=== PATIENT | male | born 1950 | race Hispanic/Latino ===

== ENCOUNTER 2016-11-12 07:27 | Inpatient (IN) | payer SELFPAY ==
[~2016-11-12] VITALS: Ht 167.6 cm; Wt 103.8 kg
[2016-11-12] VITALS (29 sets, daily range): BP systolic 69–127; BP diastolic 29–70; PULSE 89–117; RESP 14–35; O2SAT 97–100
[~2016-11-12 07:27] MED LIST: Rocuronium 10 mg/mL 5 mL Inj ONE
[2016-11-12] MEDS ORDERED: 0.9% Sodium Chloride 1,000 ML IV ONE ×2 (07:47→07:50)
--- NOTE | 2016-11-12 07:47 | ED.REPORT ---
HPI-General Illness Date of Service Nov 12, 2016 ED Provider: Ousmane Lan MD Pt is a 65 y.o. male with a hx of stroke, anemia, and HLD who presents to the ED accompanied by his family with hematemesis onset this morning. Family reports associated dark/maroon diarrhea, SOB, nausea, and decreased PO intake. They deny fever. Son states that pt was refusing to eat approximately 4 days ago. They state that pt does not take blood thinners. Due to prior stroke pt is aphasic and has chronic right-sided deficits. Pt is unable to provide a hx and past medical hx is limited due to the fact that pt has received a majority of his healthcare in [place]. Nursing Notes Stated Complaint: SHORT OF BREATH Chief Complaint: Male Abdominal Pain Nursing Notes Reviewed: Yes Allergies: Coded Allergies: No Known Allergies (Unverified , 11/12/16) No Active Prescriptions or Reported Meds General Time Seen by MD: 07:40 Chief Complaint Vomiting (Hematemesis) Hx Obtained From: Spouse, Son, Daughter Unable to Obtain Hx: Patient condition, Mental status Arrived By: Walk-in Sudden in Onset?: Yes Onset Occurred: 3 days ago Past Medical History Past Medical History Anemia HLD Chronic aphasia and right-sided weakness secondary to stroke Reports: Hyperlipidemia, Stroke Past Surgical History None reported Social History Other Social History: Good social support, Review of Systems Decreased PO intake Unable to Obtain ROS Patient condition, Mental status Full Review of Systems Constitutional: Denies: Fever GI: Reports: Bloody/tarry stool, Diarrhea, Hematemesis, Nausea, Vomiting Complete sys rev & neg: except as marked. Physical Exam Vital Signs Vital Signs Date Time Temp Pulse Resp B/P Pulse Ox O2 Delivery O2 Flow Rate FiO2 11/12/16 13:03 94 22 111/65 100 Mechanical Ventilator 11/12/16 12:55 35.6 11/12/16 12:55 93 21 113/63 100 Room Air 11/12/16 12:42 100 11/12/16 12:32 95 26 101/63 100 11/12/16 12:07 35.7 95 34 99/56 11/12/16 11:49 35.8 96 32 108/43 Non-Rebreather 15 11/12/16 11:15 99 25 11/12/16 10:37 97 35 83/45 Simple Mask 11/12/16 10:23 35.7 11/12/16 10:05 35.6 98 29 99/53 11/12/16 09:53 35.7 95 32 88/57 Simple Mask 11/12/16 09:30 35.8 101 30 81/49 Simple Mask 11/12/16 09:10 35.8 103 30 11/12/16 08:03 103 29 102/57 Non-Rebreather 11/12/16 07:39 36 117 22 80/53 Initial VS: Reviewed General/Constitutional: Awake, Well appearing, Well developed, Well hydrated, Well nourished, Not toxic appearing Behavior: Positive: Anxious Appearance / Presentation: Positive: Pale Exam is limited due to pt being aphasic secondary to stroke. Pt appears anxious, reports this it typical of pt when multiple people are present. Head / Eyes: Atraumatic, Normocephalic Respiratory / Chest: Atraumatic, Breath sounds NL, Breath sounds = bilat, No respiratory distress Cardiovascular: Regular rhythm Heart Rate / Rhythm: Positive: Tachycardia Lower Ext Edema: Positive: Right 3+ (Chronic per ) Upper extremity edema, chronic per Abdomen: Atraumatic, Soft, Non-tender, No distention Rectum / Perineum: Atraumatic Rectal for Blood: Positive: Blood - occult heme +, Negative: Melena present Firm dark stool Speech: Positive: Expressive aphasia (Chronic) Focal Weakness: Positive: Weakness diffuse R (Chronic) Interpretation & Diagnostics Lab Results Interpretation Result Diagram: 11/12/16 0755 11/12/16 0823 Test 11/12/16 07:55 11/12/16 08:23 11/12/16 08:51 White Blood Count 18.8th/mm3 (3.8-10.1) Red Blood Count 3.00mil/mm3 (4.40-5.80) Mean Corpuscular Volume 62.0fL (81-100) Mean Corpuscular Hemoglobin 15.3pg (27.0-35.0) Mean Corpuscular Hemoglobin Concent 24.7% (32.0-37.0) Red Cell Distribution Width 22.1% (12.3-15.4) Platelet Count 185bil/L (150-400) Neutrophils (%) (Auto) 88% (40-74) Lymphocytes (%) (Auto) 10% (14-46) Monocytes (%) (Auto) 2% (4-12) Eosinophils (%) (Auto) 0% (0-5) Basophils (%) (Auto) 0% (0-3) Nucleated Red Blood Cells 4/100 WBC (0-24) Hematology Comments Rbc Prothrombin Time 14.2sec (8.1-12.5) Prothromb Time International Ratio 1.32ratio Sodium Level 137mEq/L (134-144) Potassium Level 5.8mEq/L (3.5-5.2) Chloride Level 97mEq/L (97-108) Carbon Dioxide Level 6mmol/L (18-29) Blood Urea Nitrogen 32mg/dL (8-27) Creatinine 1.88mg/dL (0.76-1.27) Estimat Glomerular Filtration Rate 38mL/min (>59) Glucose Level 187mg/dL (60-99) Lactic Acid Level 20.8mmol/L (0.4-2.0) Calcium Level 8.5mg/dL (8.5-10.1) Total Bilirubin 0.5mg/dL (0.0-1.2) Aspartate Amino Transf (AST/SGOT) 80U/L (0-50) Alanine Aminotransferase (ALT/SGPT) 50U/L (0-44) Alkaline Phosphatase 72U/L (25-160) Total Protein 6.8g/dL (6.4-8.4) Albumin 3.3g/dL (3.4-5.0) Hold Zapien Top Tube Received (Received) Urine Color Yellow (YELLOW) Urine Appearance Hazy (CLEAR,HAZY) Urine pH 5.0 (5.0-8.0) Urine Specific [place] 1.021 (1.003-1.035) Urine Protein Tracemg/dL (NEG,TRACE) Urine Glucose (UA) Negativemg/dL (NEGATIVE) Urine Ketones Negativemg/dL (NEGATIVE) Urine Occult Blood Negative (NEGATIVE) Urine Nitrite Negative (NEGATIVE) Urine Bilirubin Negative (NEGATIVE) Urine Urobilinogen Normalmg/dL (NORMAL) Urine Leukocyte Esterase Trace (NEGATIVE) Urine RBC 0-2/hpf (0-2) Urine WBC 6-10/hpf (0-5) Urine Epithelial Cells Many/hpf (NONE-MOD) Urine Crystals Amorphous urates (NONE Urine Bacteria None/hpf (NONE-FEW) Urine Hyaline Casts None/lpf (NONE) Urine Granular Casts None seen (NONE SEEN) Urine Waxy Casts None seen (NONE SEEN) Urine Red Blood Cell Casts None seen (NONE SEEN) Urine White Blood Cell Casts None seen (NONE SEEN) Urine Mucus None seen (None Seen) Urine Trichomonas None seen (NONE SEEN) Urine Yeast None (NONE SEEN) Urinalysis Comment None Urine Culture Reflexed Indicated Point of Care Testing: Guaiac - heme positive, Hemoglobin low, Hematocrit low, Troponin elevated General Lab Results Interp 1: Labs reviewed ECG Interpretation Time: 07:38 Interpreted by: ED physician Normal ECG Interpretation: Normal sinus rhythm Rhythm / Conduction: Tachycardia (rate of 106) Time: 11:54 Interpreted by: ED physician Normal ECG Interpretation: Normal rate (96), Normal sinus rhythm Procedures Intubation Time: 12:13 Procedure Performed by: ED physician Consent / Setup / Site Prep: Informed consent provided, Consent from spouse , Time-out performed, Pulse oximeter applied, ekg monitor tech applied, Hand hygiene observed, Stand sterile technique Patient Position: Sniff position Blade / ET Tube / Route: Amity scope Procedural Sedation/Analgesia: Sedation: Etomidate (20) Neuromuscular Agent: Rocuronium (8) Secured / Marked: Tube marked at ___ cm (25), Tube marked at teeth Complications: None Post-Procedure: Condition improved, Tolerated procedure well, Patient stable Proced Mod Sedation/Analgesia Time: 12:13 Procedure Performed by: ED physician Consent / Setup: Informed consent provided, Consent from spouse, Time-out performed, Hand hygiene observed, Stand sterile technique, Position supine Indication: Other (Intubation) Preparation: ekg monitor tech applied, Pulse oximeter applied, Constant attendance, IV access established, Eval last meal time, Supplemental oxygen, Procedure explained, Suction available, End tidal CO2 mon applied VS Prior to Procedure: Heart Rate normal Mallampati: Class & Anatomy: 1 tonsils/uvula/s palate Airway Exam: Normal facial anatomy CVS/Resp Exam: Normal breath sounds Neuro Exam: Alert, Responsive Sedation: Sedation: Etomidate (20) Response During Procedure: Handled secretions adeq, Maintained airway well, Oxygenation stable, Sedation appropriate Complications During/After: None Reversal: None required Mental Status After Procedure: At patient's baseline Post-Procedure: Pt rtn pre-proc baseline Attestation: I performed procedure, I performed sedation Re-Eval/Medical Decision Med Decision/Clinical Course At one point anesthesia expressed a concern that the blood pressure was not being adequately managed. The blood pressures had been in the low 90s to upper 80s systolic for some time with a map of 65. Blood pressures have not been monitored for the preceding 30 minutes because of PICC line had been placed in the monitored arm. Blood pressure had been checked on the flaccid poststroke arm but values in that arm were nonsensical. I did not feel that in fact blood pressures had been inadequate. Source of Hx: Old records Time of Eval: 08:34 Re-Evaluation/Progress Note: Pt rechecked. Discussed need for admit and transfusion with family, they understand and agree with plan. Bp: 72/25 Time of Eval: 10:24 Evaluation: Lungs clear Re-Evaluation/Progress Note: Pt rechecked. Pt remains tachypneic. Imaging reviewed and chest x-ray appears normal. Rectal temp: 35C Will apply warming blanket Time of Eval: 12:09 Re-Evaluation/Progress Note: Discussed need to intubate with family, the understand and agree with plan. Consultation #1: Referral / Consult Name: Kunal Luna MD Call Returned at: 08:37 Quality Improvement Coordinator: Will see patient Note: Discussed pt condition with Dr. Kunal Luna (GI), he will see pt. Consultation #2: Referral / Consult Name: Will Gabriel MD Consulted With: Hospitalist Call Returned at: 09:07 Quality Improvement Coordinator: Will see patient, Agrees with eval, Agrees with plan, Accepts admit Note: Discussed pt conditionand consult with Dr. Luna, accepts admit. Consultation #3: Referral / Consult Name: Kunal Luna MD Call Returned at: 10:53 Note: Discussed pt's low core temp and current transfusion. Counseled Regarding: Diagnosis, Lab results, Need for admission Discharge & Departure Primary Impression: Upper GI bleed Additional Impressions: Metabolic acidosis Severe sepsis Severe anemia Disposition: ADMITTED TO HOSPITAL Discharge Condition All VS Reviewed: Yes Condition: Stable Crit Care Except Billable Proc Time Spent: 30-74 minutes, 75-104 minutes, 105-134 minutes Services Performed: Patient management by me, Time spent at bedside, Reviewing test results, Discussing patient care, Documentation in record, Time with fam/ surrogate Scribe Attestation Portions of this note were transcribed by Dr. Edyta Newberry personally performed the history, physical exam and medical decision-making; I reviewed and confirmed the accuracy of the information in the transcribed note. Signed by: Pasha England, 11/12/16 and [id number] Mathews MD Nov 12, 2016 07:47 MAURISIO SAINZ Nov 12, 2016 08:11
[2016-11-12] MEDS ORDERED: Pantoprazole 4 mg/mL 10 mL Inj IVPUSH ONE (07:50)
[2016-11-12 08:07] LABS: Mean Corpuscular Hemoglobin 15.3 pg (27.0-35.0); Platelet Count 185 bil/L (150-400)
[2016-11-12] MEDS: Pantoprazole 8 mg/Hr Infusion IV SCH ×4 (08:45→19:07)
[2016-11-12 08:54] LABS: INR 1.32 ratio
[2016-11-12 08:58] LABS: BASOPHILS % (AUTO) 0 % (0-3); EOSINOPHILS % (AUTO) 0 % (0-5); MONOCYTES % (AUTO) 2 % (4-12); NEUTROPHILS % (AUTO) 88 % (40-74)
[2016-11-12] MEDS ORDERED: Ondansetron 2 mg/mL 2 mL Inj IVPUSH PRN (09:10)
[2016-11-12] MEDS ORDERED: Alum-Mag Hydrox-Simeth 30 mL Suspension PO PRN (09:10)
[2016-11-12] MEDS ORDERED: Polyethylene Glycol (PEG) 17 Gm Powder PO PRN (09:10)
[2016-11-12] MEDS ORDERED: 0.9% Sodium Chloride 1,000 ML IV SCH (09:10)
[2016-11-12 09:17] LABS: TROPONIN T 0.14 ug/L (0.0-0.011)
[2016-11-12 09:28] LABS: APPEARANCE,URINE HAZY (CLEAR,HAZY); COLOR,URINE YELLOW (YELLOW); OCCULT BLOOD,URINE NEGATIVE (NEGATIVE); UROBILINOGEN,URINE NORMAL (NORMAL)
--- NOTE | 2016-11-12 11:14 | DRSVH ---
PROCEDURE: X-RAY CHEST ONE VIEW, PORTABLE ([id number]) INDICATIONS: tachypnea TECHNIQUE: One view of the chest was acquired. COMPARISON: None. FINDINGS: Surgical changes and devices: None. Lungs and pleura: No pleural effusions or pneumothorax. Evaluation limited due to patient rotation. There are a few linear medial left retrocardiac opacities likely representing atelectasis. Mediastinum: Mediastinal contours appear prominent likely due to rotation. Heart size is normal. Bones and chest wall: No suspicious bony lesions. Overlying soft tissues appear unremarkable. IMPRESSION: 1. Linear left retrocardiac opacities likely represent atelectasis. Dictated by: Raudel Chester M.D. on 11/12/2016 at 11:06 Approved by: Raudel Chester M.D. on 11/12/2016 at 11:07
--- NOTE | 2016-11-12 11:27 | ABG ---
DateTimeAnalyzed 11:24:00 -_ pH ____6.908 - pCO2 ___44.0__ -mmHg pO2 ___24.9__ -mmHg HCO3- ____8.3__ -mmol/L ABE __-22.2__ -mmol/L tHb ____6.4__ -g/dL O2Hb ___24.0__ -% COHb ____1.2__ -% MetHb ____1.2__ -% sO2 ___24.6__ -% FIO2 ___21.0__ -% Drawn By LAB - Date/Time Notified____ 11:26:00 -_ Spontaneous_RR ___36.0__ -b/min Liter_Flow ____7.0__ -L/min Oxygen Device 1 __OXYMASK - Notified By JJ - Notified Whom DR JERAMIE - B 760 -mmHg tO2 ____2.2__ -Vol% Herve test N/A -
[2016-11-12] MEDS ORDERED: Succinylcholine Chloride 20 mg/mL 5 mL Inj IVPUSH ONE (12:10)
[2016-11-12] MEDS ORDERED: Etomidate 2 mg/mL 20 mL Inj IV ONE (12:10)
[2016-11-12] MEDS: Chlorhexidine 0.12% 15 mL Oral Solution MT SCH ×3 (12:30→20:22)
[2016-11-12] MEDS ORDERED: fentaNYL-PF 50 mCg/mL 2 mL Inj ONE (12:36)
[2016-11-12] MEDS ORDERED: fentaNYL-PF 50 mCg/mL 2 mL Inj IVPUSH PRN (12:40)
[2016-11-12] MEDS ORDERED: Propofol 10,000 mCg/mL 100 mL Inj ONE (12:42)
[2016-11-12] MEDS: Propofol Inj 1,000,000 MCG in IV Premix 1 EACH IV SCH ×2 (12:46→17:50)
[2016-11-12] MEDS: fentaNYL 2,500 mCg/250 mL 2,500 MCG in IV Premix 1 EACH IV SCH (12:50)
--- NOTE | 2016-11-12 12:52 | DRSVH ---
PROCEDURE: CT CHEST, ABDOMEN AND PELVIS WITHOUT CONTRAST ([id number]) INDICATIONS: Shortness of breath and hypoxia with possible bleed. TECHNIQUE: After the administration of oral contrast, 5 mm thick sections acquired from the lung apices to the s ymphysis pubis. 5 mm thick coronal and sagittal reformats acquired, with additional 7 mm coronal MIP reformats through the lungs. For radiation dose reduction, the following was used: automated expos ure control, adjustment of mA and/or kV according to patient size. COMPARISON: None. FINDINGS: Image quality: There is motion artifact limiting evaluation. CHEST: Lungs and pleura: Evaluation limited by motion artifact. There are linear posterior opacities likel y representing atelectasis. No focal consolidation. There is a small 3-4 mm pulmonary nodule in the right upper lobe on series 5 image 11. No pleural effusions or pneumothorax. Central and periphera l airways are patent are normal in caliber. Mediastinum: Heart size is normal. No pericardial effusion. There is coronary arterial vascular ca lcification. No mediastinal adenopathy by CT size criteria. 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 Th oracic aorta and central pulmonary arteries are normal in size. Esophagus is normal in caliber. The re is a small hiatal hernia. Chest wall: No axillary or supraclavicular adenopathy by size criteria. Thyroid gland demonstrate n o discrete nodules. ABDOMEN: Solid organs: Liver and spleen are normal in size but evaluation for focal lesions is markedly limit ed by motion artifact. Gallbladder demonstrates no calcified gallstones, with evaluation of limited due to motion. There is mild fatty atrophy of the pancreas. No adrenal nodules. Kidneys demonstrat e no hydronephrosis. Peritoneum and bowel: Small and large bowel loops are normal in caliber and wall thickness. No free fluid or air. Nodes and vessels: No retroperitoneal or mesenteric adenopathy by size criteria. Aorta and inferior vena cava are normal in size. Miscellaneous: No intraperitoneal or retroperitoneal hematoma identified. No ventral hernias. PELVIS: Genitourinary: There is irregular concentric wall thickening of the bladder which is partially diste nded. There are heterogeneous contents in the bladder as well as partial calcification along the akila dder wall. There is mild pericystic fat stranding. There is mild enlargement of the prostate. Miscellaneous: There is subcutaneous edema along the right lateral soft tissues. No discrete locula julian collection. No inguinal hernias or adenopathy. Bones: No suspicious bony lesions. No vertebral body compression fractures. IMPRESSION: 1. No intra-abdominal or intrathoracic hematoma identified. 2. Marked irregular concentric wall thickening of the bladder with heterogeneous bladder contents an d partial calcification of the bladder wall. The findings may represent sequelae of cystitis or blad priyanka mass. Recommend correlation with clinical history and cystoscopy if indicated. 3. Small 3-4 mm right upper lobe nodule. A followup study may be performed in 12 months to demonstr ate stability if indicated. Dictated by: Raudel Chester M.D. on 11/12/2016 at 12:37 Approved by: Raudel Chester M.D. on 11/12/2016 at 12:45
[2016-11-12] MEDS ORDERED: Sodium Bicarb (50 mEq) 8.4% 1 mEq/mL 50 mL Syringe IVPUSH ONE (12:55)
[2016-11-12] MEDS: Sodium Bicarb 8.4% Inj 150 MEQ in Dextrose 5% 1,000 ML IV SCH ×2 (13:00→20:48)
[2016-11-12] MEDS ORDERED: Sodium Chloride LOK Flush 10 mL Syringe IVFLUSH PRN ×2 (13:15)
[2016-11-12] MEDS ORDERED: Rocuronium 10 mg/mL 5 mL Inj ONE (13:15)
--- NOTE | 2016-11-12 13:52 | PCM.HPMED ---
Subjective Date of Service Nov 12, 2016 Primary Provider: Admitting Physician: Will Gabriel MD Primary Care Physician: Anthony Attending Physician: Will Gabriel MD Admit Status: From the Emergency Department, Admit to [facility] Team, Critical Care Chief Complaint: 65-year-old man with history of cerebrovascular disease presents with acute blood loss anemia, acute respiratory failure with hypoxia, metabolic acidosis and circulatory shock. History of Present Illness: The patient is Stateless-speaking and unable to communicate due to intubation. The patient has a history of CVA with residual impairment starting 9 years prior to admission. Family describes 8 months of general decline. Approximately 1 month of poor appetite. Her several days prior to admission nausea following attempts to eat food. He was unable to ambulate to bathroom and back without assistance. On the morning of admission he had an episode of dark brown-black emesis and 2 episodes of bowel incontinence. Family does not describe melena but feels that stools have been dark colored. Patient has prior history of GI bleeding in [place] in 06/2016, but did not undergo EGD at that time. He takes only an occasional aspirin, otherwise no NSAID. He has consumed beer during his adult life but family says he does not drink excessively. He has no history of peptic ulcer disease or liver cirrhosis. The family is not aware of complaints of chest pain, or shortness of breath. He is more confused than usual. Family reports increased leg swelling. Review of Systems: Patient is unable to comply due to severe respiratory distress. Allergies Coded Allergies: No Known Allergies (Unverified , 11/12/16) Home Medications His only medication is occasional lorazepam at bedtime. Occasional aspirin use. He was previously on multiple medications, which have been discontinued in recent months. PMH # CVA - right-sided hemiparesis, aphasia # Cognitive impairment - likely vascular dementia Family History No premature coronary artery disease. No diabetes. Social History Hx Alcohol Use: Yes (2007 STOPPED) Hx Tobacco Use: No Living Arrangement: with Family Exam Vital Signs Vital Sign - Last Date Time Temp Pulse Resp B/P Pulse Ox O2 Delivery O2 Flow Rate FiO2 11/12/16 13:24 35.8 93 18 11/12/16 13:03 111/65 100 Mechanical Ventilator 11/12/16 11:49 15 Exam Constitutional: Monitoring with moderate respiratory distress; vital signs noted Eyes: sclerae anicteric, no conjunctival pallor, ENMT: ears, nose atraumatic; oral mucosa moist Neck: supple, JVD difficult to assess due to labored breathing Chest: symmetric, no pain or lesions Resp: auscultation clear, no wheezes, no rales or dullness Cardiac: S1, S2, regular, no murmur Abdomen: bowel sounds reduced, nontender, no organomegaly Musculoskeletal: no joints with acute erythema, swelling Skin and soft tissues: no rash; no pitting edema Peripheral pulses: Diminished Neurological: Cranial Nerves - face appears symmetric Reflexes - BJ, KJ symmetric Motor - moves all extremities with normal strength Coordination and sensory difficult to assess Lab and Diagnostics Labs Significant admission labs: Lactic acid 20.8 Troponin T: 0.14, and 1.62 INR 1.3 Albumin 3.3 Bilirubin 0.5 AST 80 ALT 50 Venous blood gas: DateTimeAnalyzed 11:24:00 -_ preintubation pH ____6.908 - pCO2 ___44.0__ -mmHg pO2 ___24.9__ -mmHg HCO3- ____8.3__ -mmol/L FIO2 ___21.0__ -% DateTimeAnalyzed 14:29:00 -_ postintubation pH ____7.103 - pCO2 ___34.8__ -mmHg pO2 ___63.4__ -mmHg HCO3- ___10.4__ -mmol/L FIO2 __100.0__ -% Arterial blood gas: Result Diagram: 11/12/16 0755 11/12/16 0823 Microbiology UA 6-10 wbc, lots of epithelial cells. X-Rays, CTs and MRIs PROCEDURE: X-RAY CHEST ONE VIEW, PORTABLE ([id number]) Lungs and pleura: No pleural effusions or pneumothorax. Evaluation limited due to patient rotation. There are a few linear medial left retrocardiac opacities likely representing atelectasis. IMPRESSION: 1. Linear left retrocardiac opacities likely represent atelectasis. Dictated by: Raudel Chester M.D. on 11/12/2016 at 11:06 PROCEDURE: CT CHEST, ABDOMEN AND PELVIS WITHOUT CONTRAST ([id number]) IMPRESSION: 1. No intra-abdominal or intrathoracic hematoma identified. 2. Marked irregular concentric wall thickening of the bladder with heterogeneous bladder contents and partial calcification of the bladder wall. The findings may represent sequelae of cystitis or bladder mass. Recommend correlation with clinical history and cystoscopy if indicated. 3. Small 3-4 mm right upper lobe nodule. A followup study may be performed in 12 months to demonstrate stability if indicated. Dictated by: Raudel Chester M.D. on 11/12/2016 at 12:37 . 12-lead ECG 11/12/16 07:38 sinus tach 106. Normal conduction intervals. [address] depression V2-V6. Q wave III, but not II, aVF. 12/05 11:54 sinus rhythm 96. Normal conduction intervals. No significant ST depression. Assessment & Plan 65-year-old man with atherosclerotic disease presents with acute GI blood loss anemia, acute respiratory failure with hypoxia, metabolic acidosis, NSTEMI and acute oliguric kidney injury. # Cardiac: Hemodynamics & Rhythm - blood pressure 80/53 on admission. Hemodynamic shock due to GI blood loss anemia. Probable acute CT related to hemodynamic shock and anemia. - Aggressive IV fluids and blood products; norepinephrine as needed - Telemetry monitoring - Maintain MAP greater than 65 mmHg - Antianginal interventions when patient is stabilized - Echocardiogram after initial resuscitation # Respiratory function - Acute respiratory failure with hypoxia. Acute hypoxemia likely due to severe anemia. Initial chest x-ray unremarkable. Chest CT with no intrinsic pulmonary pathology. VBG reveals significant acidemia with inadequate respiratory compensation. Patient does not follow directions and pulls it lines. - Repeat ABG and/or VBG after intubation and adjust settings accordingly - Intubation and mechanical ventilation due to metabolic acidosis and hemodynamic instability - Ventilator bundle ordered including sedation vacation and SBT; titrate down FiO2 as soon as possible. - Target mild respiratory alkalosis to compensate for metabolic acidosis. - Ventilator sedation with either fentanyl or propofol (as tolerated by BP) # Lines, I/O's, fluids and electrolytes - hyperkalemia with potassium 5.8 on admission. Metabolic acidosis, acute. Anion gap 34. Likely due to symptomatic anemia with type II lactic acidosis. - Aggressive hemodynamic resuscitation with sodium bicarbonate IV - Repeat BMP today and daily. - Monitor and supplement electrolytes - PICC ordered - Arterial line ordered, placed in right femoral; hope to discontinue within 24- 48 hours # Renal - acute kidney injury with serum creatinine 1.88 on admission. Likely prerenal azotemia due to GI blood loss. Patient appears to be oligo uric failure. - Daily BMP - Goal urine output greater than 0.5 mL/KG/MR - Renal medication dosing - Nephrology consult in a.m. if creatinine rises further # Hematological - cute symptomatic anemia, GI blood loss. Stool guaiac positive but firm and impacted per emergency department physician. RBC indices indicate microcytic. Likely acute on chronic in nature. INR is mildly elevated 1.3 on admission. - Acute GI bleeding orders: Peripheral IVs in central PICC access - 4 unit PRBC ordered by ED physician - target hemoglobin 8.0 in light of symptomatic anemia - FFP as needed according to high-volume transfusion. - Crystalloid IV fluids to maintain mean arterial pressure greater then 65 mm # GI, diabetes, and nutritional status - LFTs are mildly abnormal. INR is slightly elevated. Unclear whether patient has cirrhosis. - Nothing by mouth since 11/11 - GI service consulted. Will plan endoscopy after patient hemodynamically stable. No sooner than 11/13/16 unless severe life-threatening bleed. # Neurological - she seems to have baseline cognitive dysfunction related to past CVA. - Monitor clinically - Sedation only as needed # Infectious disease status - no clinical signs of focal infection. Marked leukocytosis likely secondary to acute stress response. Systemic inflammation response appears to be related to anemia and hemodynamic stress. - Follow clinically # Pain status - no apparent pain issues # Venous thromboembolism prophylaxis: - Mechanical prophylaxis only in the setting of acute GI bleeding - Acute right leg swelling may be due to arterial line placement. Doppler venous ultrasound not needed at present in light of acute blood loss. # GI prophylaxis: - IV famotidine # Goals of care, expected hospital duration, discharge plannin minutes with family discussing medical status with retail mortgage banker. - Admitted to inpatient status with expectation of care greater than 48 hours - Discussed with family who concur with aggressive care including the LA and intubation for short-term reversible medical issues. Disposition planning: Patient is currently admitted to the critical care unit with expectation of greater than 2 nights of inpatient care. GI Prophylaxis: H2 aiden VTE Prophylaxis: SCDs Resuscitation Status: CPR: Attempt Resuscitation Time spent 75 minutes of critical care time Will Gabriel MD Nov 12, 2016 13:51
--- NOTE | 2016-11-12 14:03 | DRSVH ---
PROCEDURE: X-RAY CHEST ONE VIEW, PORTABLE ([id number]) INDICATIONS: Post intubation to verify ETT placement TECHNIQUE: One view of the chest was acquired. COMPARISON: [facility], CR, XR CHEST 1VW (PORTABLE), 11/12/2016, 9:43. FINDINGS: Surgical changes and devices: There is a new endotracheal tube with the tip in appropriate position 4 .4 cm from the ailyn. Lungs and pleura: No pleural effusions or pneumothorax. There are a few linear left retrocardiac op acities likely representing atelectasis. Mediastinum: Mediastinal contours appear prominent due to rotation. Heart size is normal. Bones and chest wall: No suspicious bony lesions. Overlying soft tissues appear unremarkable. IMPRESSION: 1. New endotracheal tube in appropriate position. 2. Probable left basilar atelectasis. Dictated by: Raudel Chester M.D. on 11/12/2016 at 13:59 Approved by: Raudel Chester M.D. on 11/12/2016 at 14:01
--- NOTE | 2016-11-12 14:32 | ABG ---
DateTimeAnalyzed 14:29:00 -_ pH ____7.103 - pCO2 ___34.8__ -mmHg pO2 ___63.4__ -mmHg HCO3- ___10.4__ -mmol/L ABE __-17.5__ -mmol/L tHb ____7.0__ -g/dL O2Hb ___82.7__ -% COHb ____2.0__ -% MetHb ____1.1__ -% sO2 ___85.3__ -% FIO2 __100.0__ -% PRVC 450 - PEEP ____5.0__ -cmH2O Set_RR ___20.0__ -b/min Drawn By IV therapy - Date/Time Notified____ 14:32:00 -_ Oxygen Device 1 VENTILATOR - Notified By jj - Notified Whom ___Dr. Gabriel - B 760 -mmHg tO2 ____8.2__ -Vol% Herve test N/A -
--- NOTE | 2016-11-12 14:44 | CONS ---
[address] [address] CONSULTATION REPORT PATIENT: RAMA NAVARRO : 1950 MR#: [id number] ADMIT: 11/12/2016 JOB ID: [id number] DATE OF SERVICE: 11/12/2016 GASTROENTEROLOGY CONSULTATION: REASON FOR CONSULTATION: Hematemesis. HISTORY OF PRESENT ILLNESS: A 65-year-old Urdu-speaking only male, history of stroke, hyperlipidemia, anemia presents here with history of chronic aphasia due to right-sided weakness secondary to stroke presents here for anemia and hematemesis. Most of the history has come from the family member. Patient vomited x1 one day ago bright red blood that he vomited that covered the entire shirt. It was quantified by the family to be greater than one cup. The patient's family member states that he has had black stool in the past but currently has only brown stool. The patient and a family member denies recent trauma. The patient presents to the emergency department where she was found to have a temperature 35.8, pulse of 101, blood pressure 181/49, respiratory rate 30, satting 69% on face mask. The patient's hemoglobin was found to be 4.6 with a hematocrit of 18. His PT 14.2, INR 1.3. His BUN was 32 and creatinine 1.88. Troponin was mildly elevated at 0.140. Patient unknown whether he had an EGD, colonoscopy in the past and denies family history of colon cancer, inflammatory bowel disease or celiac disease. The patient appeared to be in labored breathing and shortness of breath. The patient denies chest pain. Positive for shortness of breath. The patient denies bright red blood per rectum, abdominal pain, change in bowel habits, or unintentional weight loss. PAST MEDICAL HISTORY: As stated above. PAST SURGERIES: Unknown. ALLERGIES: No known drug allergies. SOCIAL HISTORY: Unknown. FAMILY HISTORY: Negative for colon cancer, inflammatory bowel disease or celiac disease. REVIEW OF SYSTEMS: The patient denies headache, blurred vision. Positive for nausea and vomiting. No chest pain. Positive for shortness of breath. No abdominal pain. No skin rashes or joint pain. PHYSICAL EXAMINATION: Vital signs upon presentation, temperature of 35.8, pulse 101, blood pressure 81/49, pulse of 30, satting 69% on face mask. Generally he is in labored breathing, appeared to be distressed and short of breath. Head: No scars. Eyes: Anicteric. Throat: Supple. Lungs: Clear to auscultation bilaterally. Cardiovascular: Tachycardic but regular rate. Abdomen: Soft, nondistended, nontender. Normoactive bowel sounds. Extremities: No cyanosis, clubbing or edema. LABORATORIES: Show sodium 137, potassium 5.8, chloride 97, bicarbonate 6, BUN 32, creatinine 1.8, glucose 187. Calcium 8.5, total bili 0.5. AST 88, AST 50, alk phos 72. Total protein 6.8. Troponin 0.140. Albumin 3.3. White count 18.8, hemoglobin 4.6, hematocrit 18, MCV 62. Platelet count was 85. PT 14.2, INR 1.3. Chest film shows linear left retrocardiac opacification that could represent atelectasis. ASSESSMENT AND PLAN: A 65-year-old Urdu-speaking only male, with a history of hyperlipidemia, chronic aphasia, due to right-sided weakness secondary to stroke presents here for anemia and hematemesis x1 day. The patient currently is hemodynamically unstable with labored breathing. I do recommend the patient get a CT of the chest, abdomen and pelvis to rule out retroperitoneal bleed and to rule out pulmonary embolism. The patient needs to have more volume and transfusion of packed red blood cells, and needs to be hemodynamically stable with improved breathing prior to any form of endoscopy from a GI standpoint. RECOMMENDATIONS: 1. Continue Protonix drip. 2. CT chest, abdomen and pelvis. 3. Transfuse packed red blood cells per hospitalist team. 4. Serial hematocrits. 5. Will continue to follow.
[2016-11-12] MEDS: Norepineph 8,000 mCg/250 mL NS 8,000 MCG in IV Premix 1 EACH IV SCH (14:50)
[2016-11-12] MEDS ORDERED: Sodium Bicarb 8.4% Inj 150 MEQ in Dextrose 5% 1,000 ML IV SCH (14:50)
--- NOTE | 2016-11-12 15:06 | NUR ---
High lactic- Received call from ED RN at [phone] regarding high lactic at 20.8- DR. Gabriel was made aware of lab result- patient currently in ED-waiting for patient transfer to CCU from ED.
[2016-11-12] MEDS ORDERED: DEXTROSE 5% IV ONE (15:13)
[2016-11-12] MEDS ORDERED: SODIUM BICARB IV ONE (15:13)
[2016-11-12] MEDS ORDERED: CHOL10008 PO (16:04)
[2016-11-12] MEDS ORDERED: LORA0.5T PO (16:05)
[2016-11-12] MEDS ORDERED: ALBU2TAB4 PO (16:07)
[2016-11-12] MEDS ORDERED: MELA5TAB14 PO (16:07)
--- NOTE | 2016-11-12 16:33 | ABG ---
DateTimeAnalyzed 16:27:00 -_ pH ____7.207 - 7.350 7.450 pCO2 ___34.8__ -mmHg 35.0 45.0 pO2 356 -mmHg 69.0 116 HCO3- ___13.3__ -mmol/L 22.0 26.0 ABE __-13.2__ -mmol/L -2.0 2.0 tHb ____7.0__ -g/dL O2Hb ___97.2__ -% COHb ____1.1__ -% MetHb ____1.3__ -% sO2 ___99.6__ -% 25.0 FIO2 __100.0__ -% PEEP ____5.0__ -cmH2O Set_RR ___20.0__ -b/min Vt __450.0__ -L Drawn By KBB - Date/Time Notified____ 16:33:00 -_ Oxygen Device 1 VENTILATOR - Notified By KBB - Notified Whom Will Gabriel, MD -__ B 759 -mmHg tO2 ___10.5__ -Vol% Herve test N/A -
--- NOTE | 2016-11-12 17:38 | DRSVH ---
PROCEDURE: X-RAY PICC LINE PLACEMENT BY NURSE ([id number]) INDICATIONS: PICC placement COMPARISON: [facility], CR, XR CHEST 1VW (PORTABLE), 11/12/2016, 9:43. [facility], CR, XR CHEST 1VW (PORTABLE), 11/12/2016, 12:18. FINDINGS: PICC was placed by the intravenous therapy team from the left side. Fluoroscopic spot hima m demonstrates tip of PICC at the cavoatrial junction. IMPRESSION: Tip of PICC at extends to the cavoatrial junction. Dictated by: Raudel Chester M.D. on 11/12/2016 at 17:35 Approved by: Raudel Chester M.D. on 11/12/2016 at 17:36
[2016-11-12 18:51] LABS: Magnesium 2.2 mg/dL (1.6-2.6)
--- NOTE | 2016-11-12 19:40 | NUR ---
Note Patient arrived in CCU after 1530 today. Patient was on mechanical ventilation with oxygen saturation at 100% per finger oximetry- ABG at 1620: PH 7.207, PCO2 35. PO2 356 and HCO31.3 -please see RT documentation for ventilator changes. 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 Left upper arm PICC with occlusive Kerlix dressing- small amount of dry serum-sanguineous drainage on medial upper portion of dressing IV therapy aware, derange margin was marked- no increase was noted. Right femoral a- line patient remained in supine possession with minimal head elevation. Bilateral feet with pitting edema right larger that the left. Feet were warm to the touch with weak but palpable pedal pulses. Lisa catheter to gravity drain- minimal urine output -30 ml since arriving from ED- MD was made aware. HH after 2units of PRBC patient received in ED was 6.7 and 24.9 patient was started on third unit of PRBC with one more unit to be administered for total of 4. MD was made aware about abnormal lab results and patients status during the progress of the shift- new orders were received, continue monitoring
[2016-11-12] MEDS: Insulin Human REGular 100 Units/100 mL NS IV SCH ×2 (20:21)
[2016-11-12] MEDS ORDERED: Influenza (Adult) Vaccine 0.5 mL Syringe IM ONE (20:30)
[2016-11-13] VITALS (12 sets, daily range): BP systolic 72–130; BP diastolic 46–68; PULSE 92–112; RESP 18–25; O2SAT 92–100
[2016-11-13] MEDS: Chlorhexidine 0.12% 15 mL Oral Solution MT SCH ×6 (00:49→20:30)
[2016-11-13 02:43] LABS: BASOPHILS % (AUTO) 0.1 % (0-3); EOSINOPHILS % (AUTO) 0 % (0-5)
[2016-11-13 02:45] LABS: MONOCYTES % (AUTO) 3.1 % (4-12); Mean Corpuscular Hemoglobin 21.5 pg (27.0-35.0); Mean Corpuscular Volume 68.4 fL (81-100); NEUTROPHILS % (AUTO) 87.1 % (40-74); Platelet Count 112 bil/L (150-400)
[2016-11-13] MEDS ORDERED: Acetaminophen IV 1,000 MG in IV Premix 1 EACH IV PRN (02:55)
[2016-11-13] MEDS: Propofol Inj 1,000,000 MCG in IV Premix 1 EACH IV SCH ×2 (03:18→13:20)
[2016-11-13] MEDS ORDERED: Calcium GLUCO 10% (Gm) 1 Gm/10 mL 50 mL Inj IV ONE (05:30)
[2016-11-13] MEDS ORDERED: DEXTROSE 5% IV ONE (05:35)
[2016-11-13] MEDS ORDERED: CALCIUM GLUCO IV ONE (05:35)
--- NOTE | 2016-11-13 05:39 | ABG ---
DateTimeAnalyzed 05:36:00 -_ pH ____7.520 - 7.350 7.450 pCO2 ___29.9__ -mmHg 35.0 45.0 pO2 196 -mmHg 69.0 116 HCO3- ___24.2__ -mmol/L 22.0 26.0 ABE ____2.0__ -mmol/L -2.0 2.0 tHb ____9.3__ -g/dL O2Hb ___97.5__ -% COHb ____1.2__ -% MetHb ____1.0__ -% sO2 ___99.7__ -% 25.0 FIO2 ___60.0__ -% PEEP ____5.0__ -cmH2O Set_RR ___20.0__ -b/min Vt __450.0__ -L Drawn By MK - Date/Time Notified____ 05:38:00 -_ Spontaneous_RR ___20.0__ -b/min Oxygen Device 1 VENTILATOR - Notified By MK - B 754 -mmHg tO2 ___13.1__ -Vol% OrderingPhysicianInitials mf - Herve test N/A -
[2016-11-13] MEDS: Sodium Bicarb 8.4% Inj 150 MEQ in Dextrose 5% 1,000 ML IV SCH (06:39)
--- NOTE | 2016-11-13 07:25 | NUR ---
P) Cardiac/Respiratory// fever Pt. with coarse breath sounds in lungs, decreased in bases bilat. suctioning moderate amounts of opaque, white to yellow phlegm from ET tube. Blood sugars initially over 200mg/dl. Febrile tonight, T-max 39.c orally, last temp 38.2c. Minimal adam urine output, creatinine rising. R foot more edematous than L, R arm contracted and painful, visible cataract forming on R eye. Wakes agitated, chewing on ET tube and displacing bite block, blood pressures started dropping this am, stopped sedation for a time without improvement. I) Norepi started per 's orders, consulted Dr. Montes De Oca, blood cultures drawn, tylenol given, passive cooling measures done. E) Lots of family counseling and updating in [place], and daughter spent night, lots of family visiting up until 2200. Pt. resting more quietly this am.
--- NOTE | 2016-11-13 08:18 | PCM.PNMED ---
Subjective Date of Service Nov 13, 2016 Subjective 65-year-old man with history of cerebrovascular disease presents with acute blood loss anemia, acute respiratory failure with hypoxia, metabolic acidosis and circulatory shock. Patient remains sedated on the ventilator. Exam Vital Signs Vital Sign - Last Date Time Temp Pulse Resp B/P Pulse Ox O2 Delivery O2 Flow Rate FiO2 11/13/16 05:45 102 80/57 96 40 11/13/16 04:00 39.0 20 Mechanical Ventilator 11/12/16 11:49 15 Intake and Output 11/12/16 11/12/16 11/13/16 Cumulative From/Thru 14:59 22:59 06:59 11/12/16 07:39 - 11/12/16 23:22 Intake Total 3791 ml 1531 ml 5322 ml Output Total 475 ml 55 ml 530 ml Balance 3316 ml 1476 ml 4792 ml Intake IV Total 3791 ml 911 ml 4702 ml Packed Cells 620 ml 620 ml Output Urine Total 75 ml 30 ml 105 ml Gastric Drainage Total 25 ml 25 ml Other 400 ml 400 ml Exam General: Generally healthy-appearing sedated on ventilator HEENT: sclerae anicteric Neck: 6-8 cm JVD Chest: Generally clear to auscultation; PICC line Cardiac: Tachycardic S1S2, no murmur appreciated Abdomen: BS reduced, mildly distended firm but not tense; Lisa catheter; right groin arterial line Extremities: 2+ edema on right leg, trace on left Neuro: Sedated, motor tone normal, right-sided upper extremity contraction IVs and Medications Medications Reviewed: Medications were reviewed in detail Lab and Diagnostics Venous blood gas: DateTimeAnalyzed 11:24:00 -_ preintubation pH ____6.908 - pCO2 ___44.0__ -mmHg pO2 ___24.9__ -mmHg HCO3- ____8.3__ -mmol/L FIO2 ___21.0__ -% DateTimeAnalyzed 14:29:00 -_ postintubation pH ____7.103 - pCO2 ___34.8__ -mmHg pO2 ___63.4__ -mmHg HCO3- ___10.4__ -mmol/L FIO2 __100.0__ -% Arterial blood gas: DateTimeAnalyzed 05:36:00 -_ intubated pH ____7.520 - 7.350 7.450 pCO2 ___29.9__ -mmHg 35.0 45.0 pO2 196 -mmHg 69.0 116 HCO3- ___24.2__ -mmol/L 22.0 26.0 ABE ____2.0__ -mmol/L -2.0 2.0 FIO2 ___60.0__ -% DateTimeAnalyzed 08:33:00 -_ pH ____7.427 - 7.350 7.450 pCO2 ___38.5__ -mmHg 35.0 45.0 pO2 ___90.1__ -mmHg 69.0 116 HCO3- ___24.9__ -mmol/L 22.0 26.0 FIO2 ___40.0__ -% Result Diagram: 11/13/16 0230 11/13/16 0230 Microbiology UA 6-10 wbc, lots of epithelial cells. Repeat culture 11/13 is pending MRSA nasal swab negative Sputum culture pending Blood cultures 11/13 are pending X-Rays, CTs and MRIs PROCEDURE: X-RAY CHEST ONE VIEW ([id number]) IMPRESSION: 1. Left lower lobe pneumonia. Follow up plain films of the chest are recommended to ensure resolution, and to exclude underlying or central malignancy. 2. Tubes and catheters as above. Dictated by: Camilla Klein M.D. on 11/13/2016 at 9:09 PROCEDURE: X-RAY CHEST ONE VIEW, PORTABLE ([id number]) Lungs and pleura: No pleural effusions or pneumothorax. Evaluation limited due to patient rotation. There are a few linear medial left retrocardiac opacities likely representing atelectasis. IMPRESSION: 1. Linear left retrocardiac opacities likely represent atelectasis. Dictated by: Raudel Chester M.D. on 11/12/2016 at 11:06 PROCEDURE: CT CHEST, ABDOMEN AND PELVIS WITHOUT CONTRAST ([id number]) IMPRESSION: 1. No intra-abdominal or intrathoracic hematoma identified. 2. Marked irregular concentric wall thickening of the bladder with heterogeneous bladder contents and partial calcification of the bladder wall. The findings may represent sequelae of cystitis or bladder mass. Recommend correlation with clinical history and cystoscopy if indicated. 3. Small 3-4 mm right upper lobe nodule. A followup study may be performed in 12 months to demonstrate stability if indicated. Dictated by: Raudel Chester M.D. on 11/12/2016 at 12:37 PROCEDURE: US ABDOMEN, LIMITED ([id number]) IMPRESSION: Limited examination demonstrating no evidence of cholecystitis. Dictated by: Camilla Klein M.D. on 11/13/2016 at 10:39 . 12-lead ECG 11/12/16 07:38 sinus tach 106. Normal conduction intervals. [address] depression V2-V6. Q wave III, but not II, aVF. 12/05 11:54 sinus rhythm 96. Normal conduction intervals. No significant ST depression. Assessment & Plan 65-year-old man with atherosclerotic disease presents with acute GI blood loss anemia, acute respiratory failure with hypoxia, metabolic acidosis, NSTEMI and acute oliguric kidney injury. # Cardiac: Hemodynamics & Rhythm - blood pressure 80/53 on admission. Hemodynamic shock due to GI blood loss anemia. NSTEMI related to hemodynamic shock and anemia. Now with evidence of fluid overload and oliguria. CVP approximately 20 mmHg. Unclear whether CHF is contributed to this oliguric renal failure. - Discontinue IV fluids - norepinephrine as needed, try to reduce sedation and pressors to enhance renal perfusion - Telemetry monitoring - Maintain MAP greater than 65 mmHg - Echocardiogram today with cardiology consult for CAD and CHFassessment # Renal - acute kidney injury with serum creatinine 1.88 on admission. Now in oliguric renal failure. Likely ATN due to GI blood loss and hypotension. - Reduce IV fluids . - Daily BMP - Goal urine output greater than 0.5 mL/KG/MR - Renal medication dosing - Nephrology consult # Respiratory function - Acute respiratory failure with hypoxia. Acute hypoxemia likely due to severe anemia. Initial chest x-ray unremarkable. Chest CT with no intrinsic pulmonary pathology. VBG revealed significant acidemia with inadequate respiratory compensation prior to intubation. On 04/15 ABG reveals combined metabolic and respiratory alkalosis. - Reduce FiO2; continue 5 cm PEEP - Ventilator bundle ordered including sedation vacation and SBT; - Discontinue bicarbonate infusion -Trial of Precedex to see if we can wean off nor epi, otherwise fentanyl and propofol # Lines, I/O's, fluids and electrolytes - hyperkalemia with potassium 5.8 on admission. Metabolic acidosis, acute. Anion gap 34. Likely due to symptomatic anemia with type II lactic acidosis. - Minimize IV fluids - Repeat BMP today and daily. - Monitor and supplement electrolytes - Arterial line ordered, placed in right femoral; hope to discontinue within 24- 48 hours # Infectious disease status - fever to 39.0 on 11/13. No clinical signs of focal infection. Marked leukocytosis likely secondary to acute stress response on 11/12 is now declining. Tracheal secretions are mild. Checks x-ray on 11/13 appears to show left lower lobe infiltrate, loss of left diaphragm contour, with right perihilar interstitial pattern. Gallbladder was not well visualized on CT scan. Initial UA was contaminated. Hypertension and pressors raise concern for ischemic bowel. Probable diagnosis for acute leukocytosis and fever is pneumonia, presenting less than 48 hours after hospitalized. - Follow culture data: Sputum, repeat urine, blood - Daily chest x-ray - Echocardiogram to check for pericarditis and other cardiac parameters - Antibiotics: Renally dosed meropenem; linezolid ordered but will discontinue in light of negative MRSA - Daily CBC # Hematological - cute symptomatic anemia, GI blood loss. Stool guaiac positive but firm and impacted per emergency department physician. RBC indices indicate microcytic. Likely acute on chronic in nature. INR is mildly elevated 1.3 on admission. 4 units PRBC administered with a rising hemoglobin to 9.2. - Acute GI bleeding orders: Peripheral IVs in central PICC access - Monitor clinically for further blood loss; stool guaiac # GI, diabetes, and nutritional status - no signs of acute ongoing blood loss. LFTs are mildly abnormal. INR is slightly elevated. Unclear whether patient has cirrhosis, family denies significant alcohol history. - Nothing by mouth since 11/11 - IV Protonix for presumed upper GI bleeding - Bowel sounds seem hypoactive with no stool output; vigilance for ischemic bowel - GI service consulted. Will plan endoscopy after patient hemodynamically stable. 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 - Monitor clinically - Sedation only as needed # Pain status - no apparent pain issues # Venous thromboembolism prophylaxis: - Mechanical prophylaxis only in the setting of acute GI bleeding - Acute right leg swelling is chronic related to his past CVA. Doppler venous ultrasound not needed at present. # GI prophylaxis: - IV famotidine # Goals of care, expected hospital duration, discharge planning: Communicate medical status to family with burrer operator. - Admitted to inpatient status with expectation of care greater than 48 hours - Discussed with family who concur with aggressive care including the WI and intubation for short-term reversible medical issues. Disposition planning: Patient is currently admitted to the critical care unit with expectation of greater than 2 nights of inpatient care. GI Prophylaxis: Proton Pump Inhibitor VTE Prophylaxis: SCDs VTE Mechanical Devices: Intermittant Pneumatic CD Resuscitation Status: CPR: Attempt Resuscitation Time spent 55 minute, personal review of x-ray, family counseling 15 minutes Will Gabriel MD Nov 13, 2016 08:18
--- NOTE | 2016-11-13 08:38 | ABG ---
DateTimeAnalyzed 08:33:00 -_ pH ____7.427 - 7.350 7.450 pCO2 ___38.5__ -mmHg 35.0 45.0 pO2 ___90.1__ -mmHg 69.0 116 HCO3- ___24.9__ -mmol/L 22.0 26.0 ABE ____1.1__ -mmol/L -2.0 2.0 tHb ____9.5__ -g/dL O2Hb ___95.0__ -% COHb ____1.4__ -% MetHb ____1.2__ -% sO2 ___97.5__ -% 25.0 FIO2 ___40.0__ -% PEEP ____5.0__ -cmH2O Set_RR ___16.0__ -b/min Vt __400.0__ -L Drawn By K[facility] - Date/Time Notified____ 08:37:00 -_ Oxygen Device 1 VENTILATOR - Notified By [facility] - Notified Whom ___Dr. J Gabriel - B 753 -mmHg tO2 ___12.8__ -Vol% Herve test N/A -
[2016-11-13] MEDS: Pantoprazole 8 mg/Hr Infusion IV SCH ×6 (08:54→17:38)
[2016-11-13] MEDS ORDERED: Dexmedetomidine 400 mCg/100 mL NS Premix IV ONE (09:08)
--- NOTE | 2016-11-13 09:11 | DRSVH ---
PROCEDURE: X-RAY CHEST ONE VIEW ([id number]) INDICATIONS: ventilator TECHNIQUE: One view of the chest was acquired. COMPARISON: [facility], CR, XR PICC LINE PLACE BY NURSE, 11/12/2016, 13:11. [facility], CR, XR CHEST 1VW (PORTABLE), 11/12/2016, 12:18. FINDINGS: Surgical changes and devices: Left arm PICC is present, tip of which is in the lower SVC. NGT extends into the gastric lumen. ETT is present, tip of which is roughly 24 mm above the ailyn. Lungs and pleura: No pleural effusions or pneumothorax. Moderate left medial basilar airspace opacit y. Mediastinum: Mediastinal contours appear normal. Heart size is normal. Bones and chest wall: No suspicious bony lesions. Overlying soft tissues appear unremarkable. IMPRESSION: 1. Left lower lobe pneumonia. Follow up plain films of the chest are recommended to ensure resolution , and to exclude underlying or central malignancy. 2. Tubes and catheters as above. Dictated by: Camilla Klein M.D. on 11/13/2016 at 9:09 Approved by: Camilla lKein M.D. on 11/13/2016 at 9:10
[2016-11-13] MEDS ORDERED: Lactated Ringer's 1,000 ML IV ONE (09:36)
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
[2016-11-13] MEDS: Dexmedetomidine 400 mCg/100 mL 400 MCG in IV Premix 1 EACH IV SCH ×2 (09:43→22:28)
[2016-11-13] MEDS: Meropenem Inj 500 MG in 0.9% Sodium Chloride 50 ML IV SCH (09:43)
--- NOTE | 2016-11-13 10:22 | PCM.PNSURG ---
Subjective Date of Service: Nov 13, 2016 Date of Service: Nov 13, 2016 Subjective: hb 9.2 this am. NG tube shows coffee ground emesis. sbp 70s. intubated. spiking temps 39 this am. on pressors Postop General: No Complaints Objective Vital Sign- Last 8 Hours Date Time Temp Pulse Resp B/P Pulse Ox O2 Delivery O2 Flow Rate FiO2 11/13/16 08:21 106 72/46 97 40 11/13/16 08:05 Ventilator 11/13/16 08:05 38.1 105 18 88/47 97 Mechanical Ventilator 40 11/13/16 05:45 102 80/57 96 40 11/13/16 04:00 39.0 100 20 96/50 100 Mechanical Ventilator 60 Intake and Output- Last 8 Hour 11/13/16 Cumulative From/Thru 07:00 11/12/16 07:39 - 11/12/16 23:22 Intake Total 5322 ml Output Total 530 ml Balance 4792 ml Intake IV Total 4702 ml Packed Cells 620 ml Output Urine Total 105 ml Gastric Drainage Total 25 ml Other 400 ml General: Other (intubated) Neck: Supple Lungs: Rhonchorus Heart: Exam Unremarkable Abdomen: Benign, Soft, Other (hypoactive bs) Extremities: Distal Pulses Palpable Result Diagram: 11/13/16 02311/13/16 0230 Assessment & Plan Impression A 65-year-old Polish-speaking only male, with a history of hyperlipidemia, chronic aphasia, due to right-sided weakness secondary to stroke presents here for anemia and hematemesis x1 day. The patient currently is hemodynamically unstable with labored breathing. hgb 4.4 on admission, hypotensive tachycardia and oxygen sat 69% on face mask in ED, lactate 20.8 on admission. s/p intubated. troponin 3.0. CT chest abdomen pelvis no contrast 11/12/16- IMPRESSION: 1. No intra-abdominal or intrathoracic hematoma identified. 2. Marked irregular concentric wall thickening of the bladder with heterogeneous bladder contents and partial calcification of the bladder wall. The findings may represent sequelae of cystitis or bladder mass. Recommend correlation with clinical history and cystoscopy if indicated. 3. Small 3-4 mm right upper lobe nodule. A followup study may be performed in 12 months to demonstrate stability if indicated. 11/13- hb 9.2 this am. NG tube shows coffee ground emesis. sbp 70s. intubated. spiking temps 39 this am. on pressors and abx. Pt still hemodynamically unstable and spiking temps at this time. Pt with hypoactive bowel sounds concern for ischemic colitis. Recs: 1) supportive tx, ivfs 2) hold off egd given spiking temps and hemodynamically unstable. 3) protonix gtt will cont to follow Problems: VTE Prophylaxis: SCDs Resuscitation Status: CPR: Attempt Resuscitation Kunal Luna MD Nov 13, 2016 10:22
--- NOTE | 2016-11-13 10:41 | DRSVH ---
PROCEDURE: US ABDOMEN, LIMITED ([id number]) INDICATIONS: R upper quadrant TECHNIQUE: Real-time focused scanning was performed of the abdomen, with image documentation. COMPARISON: None. FINDINGS: Examination is limited by patient's cooperation factors. Gallbladder is grossly unremarkable, without evidence of cholecystitis nor gallbladder wall thickenin g. No definite biliary ductal dilatation. IMPRESSION: Limited examination demonstrating no evidence of cholecystitis. Dictated by: Camilla Klein M.D. on 11/13/2016 at 10:39 Approved by: Camilla Klein M.D. on 11/13/2016 at 10:40
[2016-11-13 11:10] LABS: APPEARANCE,URINE CLOUDY (CLEAR,HAZY); COLOR,URINE AMBER (YELLOW); OCCULT BLOOD,URINE LARGE (NEGATIVE); UROBILINOGEN,URINE NORMAL (NORMAL)
[2016-11-13 11:12] LABS: ICTOTEST,URINE POSITIVE (Negative)
[2016-11-13] MEDS: fentaNYL 2,500 mCg/250 mL 2,500 MCG in IV Premix 1 EACH IV SCH (11:20)
--- NOTE | 2016-11-13 15:37 | NUR ---
Social Work Note: Initial Assessment Data& Assessment: EMR reviewed. Pt remains on the vent. OPAL met with pt and pt family at bedside to discuss discharge planning with the assistance of portable educational sign language interpreter machine. OPAL role explained. Krzysztof Fields is a 65 year old male admitted on 11/12/2016 for UGIB. Pt is listed as self pay with no PCP. Pt is visiting from [place] and has been staying with his daughter in [place]. Per Pt son, pt had a PE 9 years ago and since then, pt has required help preforming most of his ADL's. Pt has one working hand that functions enough so pt feeds himself and is able to complete minor activities. Pt family helps him with all other ADL's. Pt uses a wheelchair at baseline. Pt has not walked in the last week due to not feeling well. Pt Does not have LTC insurance, VA benefits, SNF or HH hx. Pt family plans to help care for him at home when he is medically ready. OPAL provided pt family with [employer] application to review and complete as best they can when possible. No other discharge needs identified at this time. SW to continue to follow as pt medically progresses. Plan: Anticipated discharge home via POV when medically ready. Pt family denies any needs at this time. No other discharge needs identified at this time. OPAL to continue to follow as pt medically progresses. CORONA Gallego Addendum: 11/13/16 at 1545 by ANCA LITTLE Amended: Links added.
[2016-11-13] MEDS: Norepineph 8,000 mCg/250 mL NS 8,000 MCG in IV Premix 1 EACH IV SCH ×2 (16:22→22:28)
--- NOTE | 2016-11-13 16:44 | CONS ---
[address] [address] CONSULTATION REPORT PATIENT: RAMA NAVARRO : 1950 MR#: [id number] ADMIT: 11/12/2016 JOB ID: [id number] DATE OF SERVICE: 11/12/2016 PULMONARY CRITICAL CARE CONSULTATION NOTE: The patient is a 65-year-old man, seen in consultation at the request of Dr. Gabriel for acute hypoxic respiratory failure. HISTORY OF PRESENT ILLNESS: The patient is intubated at this time and has never been seen before at [facility] that I can see. Therefore, all of the history is obtained by review of medical records and from other providers who spoke with the patient prior to intubation. A 65-year-old man with history of prior stroke with right-sided hemiparesis presenting with severe anemia, hemoglobin of 4.6 in the emergency department. He was reportedly lethargic, minimally responsive. Venous blood gas showed a pH of 6.9, pCO2 44, and bicarb of 8, which was confirmed on chemistries. Because of worsening mental status and severe acidemia on blood gas, the patient was emergently intubated. He is currently on mechanical ventilation in the emergency department and blood pressures are a little bit improved but have been as low as 80s to 90s systolic. Past medical history, social history, family history, and review of systems could not be obtained directly from the patient, but I have been informed that he has a history of stroke with right-sided weakness. PHYSICAL EXAMINATION: Vital signs reviewed. Temperature of 35.7, pulse 95, respirations 34. BP 99/56. Sats 100% on 100% ventilator. He is breathing over the set rate of around 20 and his respiratory rate currently is 28. General: Intubated, sedated. HEENT: Pupils equal, reactive. ET tube in place. Chest is clear but he has faint bilateral wheezing. Heart: Regular rate, rhythm. Abdomen: Soft, nontender, nondistended. Extremities: He does have bilateral lower extremity edema with some erythema and mottling on his legs. He has 2+ edema bilaterally. LABORATORIES: Reviewed and notable for WBC 18.8, hemoglobin 4.6, platelets 185. Coags show INR of 1.3. Chemistry notable for potassium of 5.8, chloride of 97, CO2 of 6. BUN 32, creatinine of 1.8. Troponin 0.14. AST 80. ALT 50. Albumin 3.3. Cultures: None so far. Chest x-ray reviewed and shows ET tube in appropriate position with some hilar prominence, more so on the left, that could be pulmonary edema. He also has a CT of the chest, abdomen, and pelvis that does not have a formal read yet. Pulmonary parenchyma is completely clear on the CT scan. I do not see any obvious intra-abdominal process such as free air or free fluid in the abdomen. I wonder about a small pericardial effusion on the chest CT. No other obvious abnormalities. ASSESSMENT AND RECOMMENDATIONS: 1. Suspected upper GI bleed. 2. Severe blood loss anemia. 3. Acute hypoxic respiratory failure, on mechanical ventilation. 4. Severe metabolic acidosis. 5. Acute kidney injury. 6. Transaminitis. 7. Systemic inflammatory response syndrome. 8. History of stroke with right-sided weakness. This 65-year-old man presented with severe anemia most likely from upper GI bleed and severe metabolic acidosis with no respiratory compensation and worsening encephalopathy. He was intubated mostly for airway protection and for acidosis. He is getting blood transfusions right now to correct his hemoglobin. He is also on a PPI drip with bolus prior to that. IV access-donovan, he has two peripheral IVs and we are working on getting a PICC line for additional access. With regards to the metabolic acidosis it seems to be primarily renal in cause with inadequate compensation because he is making no additional respiratory efforts. We will check a blood gas now that he is intubated and make sure this is improving. Also, I recommended a push of bicarb because of his intermittent hypotension with severe acidosis until we can get a bicarb drip started. I would do 150 mEq of sodium bicarb in 1 L of D5 water or sterile water at 150 cc an hour and repeat his chemistries in about 4-6 hours and also repeat blood gas in the meantime. Agree with GI consultation. I think Dr. Luna has already been contacted by Dr. Gabriel regarding this patient but obviously he needs to be more stable before any procedures can be done such as endoscopy. In regards to sedation at this point, were are just using fentanyl pushes which is fine until we get a better hold on his hemodynamics. DVT prophylaxis is contraindicated. He is getting PPI as above. Code status is PRESUMED FULL. CRITICAL CARE TIME: 45 minutes.
--- NOTE | 2016-11-13 17:16 | DRSVH ---
[facility] [address] [place] [address] Echocardiogram Report Name: RAMA NAVARRO Study Date: 11/13/2016 Height: 66 in Hospital Exam Location: [facility] Weight: 192 lb Gender: Male BSA: 2.0 m2 : 1950 Age: 65 yrs BP: 96/50 mmHg Reason For Study: CAD Ordering Physician: Performed By: Donna ThompsonWilliam [facility] Interpretation Summary Normal sinus rhythm. Normal LV size, wall thickness;l there is basal inferior wall akinesis; otherwise normal wall motion. LV is D shaped in both systole and diastole c/w RV pressure overload. Estimated PA systolic pressure is 40 mm Hg assuming RA pressure of 10 mm Hg. RV is severely dilated with severely reduced RV function. No prior study is available for comparison. Procedure: A two-dimensional transthoracic echocardiogram with color flow and Doppler was performed. The study quality was technically good. There is no prior echocardiogram noted for this patient. The patient was in normal sinus rhythm during the exam. Left Ventricle: The left ventricle is normal in size. There is normal left ventricular wall thickness. The ejection fraction is estimated to be 55-60%. There is basal inferior wall akinesis. Flattened septum is consistent with RV pressure/volume overload. Right Ventricle: The right ventricle is severely dilated. Right ventricular systolic function is severely reduced. Atria: The left atrium grossly appears normal in size. The right atrium is moderate to severely dilated. Mitral Valve: The mitral valve is normal in structure and function. There is no mitral regurgitation noted. Aortic Valve: The aortic valve opens well. No aortic regurgitation is present. Tricuspid Valve: The tricuspid valve leaflets are thin and pliable. No tricuspid regurgitation. Pulmonic Valve: The pulmonic valve leaflets are thin and pliable; valve motion is normal. Great Vessels: The aortic root is normal size. The ascending aorta could not be visualized. The inferior vena cava was not visualized. Pericardium/ Pleura There is no pericardial effusion. There is no pleural effusion. MMode/2D Measurements & Calculations LVIDd: 4.2 cm LA dimension: 2.6 cm RA long axis Ao root diam LVIDs: 3.4 cm FS: 19.6 % RA area Aortic Jxn IVSd: 1.1 cm : 2.6 cm LVPWd: 0.73 cm : 26.1 cm RA vol: 96.2 ml RA : 48.9 mm2 LV hannah. diameter/BSA LV sys. diameter/BSA (cm/m^2): 2.1 (cm/m^2): 1.7 Doppler Measurements & Calculations TR max manda: 274.5 cm/sec TR max P.1 mmHg Reading Physician:05:15 PM
--- NOTE | 2016-11-13 18:58 | PROCED ---
[address] [address] PROCEDURE NOTE PATIENT: RAMA NAVARRO : 1950 MR#: [id number] ADMIT: 11/12/2016 JOB ID: [id number] DATE OF SERVICE: 11/12/2016 POSTOPERATIVE DIAGNOSIS(ES): PREOPERATIVE DIAGNOSIS(ES): SURGEON: PROCEDURE: Arterial line. I was called by Ousmane Lan MD to place an arterial line in a patient in the ED. Upon examination, the patient had no palpable distal pulses and under ultrasound of the left radial artery, it was barely visible. I did attempt sterilely three passes at the left radial artery, however, I quickly moved on as the patient was hypotensive without any reliable noninvasive blood pressure at that point in time. Ultrasound did confirm a good right femoral artery placement. Sterile technique was used throughout as well as ultrasound. A 23-gauge angio catheter was placed under direct visualization into the right femoral artery. Blood flow was good. Wave form was good postprocedure.
[2016-11-13] MEDS: Insulin Human REGular 100 Units/100 mL NS IV SCH ×2 (19:10)
[2016-11-13] MEDS ORDERED: 0.9% Sodium Chloride 250 ML IV SCH (19:30)
--- NOTE | 2016-11-13 19:53 | NUR ---
Labs/sedation Elevated AST and ALT with progressive increase in creatinine, stable HH. Urine output of 18ml in 12h shift and other abnormal lab results were related to the attending MD during the shift. Blood glucose this morning at 98- insulin drip was discontinued per MD verbal order. Blood glucose remained stable during the day. Patient had period of increased agitation during the shift. Label BP per right femoral A-line- minimal sedation with propofol at 2-5-5mcg/kg/min with 0.5-1ml boluses PRN anxiety/agitation, precede drip at 0.2mcg/kg/h, fentanyl drip at 75mcg/h- patient was not able to tolerated increase in sedation/pain drips. Levophed drip at 0.2mcg/kg/min to maintain MAP 60-65- MD aware-please refer to CCU flow sheet for details.
--- NOTE | 2016-11-13 19:59 | CONS ---
[address] [address] CONSULTATION REPORT PATIENT: RAMA NAVARRO : 1950 MR#: [id number] ADMIT: 11/12/2016 JOB ID: [id number] DATE OF SERVICE: 11/13/2016 REQUESTING PHYSICIAN: Mendez Gabriel MD REASON FOR CONSULTATION: Management of acute kidney injury. CHIEF COMPLAINT: Hematemesis. PRESENT ILLNESS: This is a 65-year-old male with significant past medical history of CVA with right-sided hemiparesis who presented to the emergency department with a complaint of hematemesis and dark diarrhea. The patient is now intubated and sedated. I have gathered history from the family and medical record. His son stated that the patient had the episode of hematemesis back in July 2016. However, he did not seek any medical attention at the time. Approximately 4-5 days prior to the admission, he had a poor appetite and decreased oral intake. Yesterday morning, he experienced hematemesis and also had a loose stool. They mentioned that the color of the stool was quite dark. The patient does not take NSAIDs on a regular basis. He does not take aspirin on a daily basis as well. He has no history of kidney disease in the past. According to the family, the patient is not diabetic. He does not take any antihypertensive medications. He has no history of vasculitis or nephrolithiasis. Upon arrival, his initial vitals showed temperature of 36, pulse of 117, respiratory rate of 22, blood pressure of 80/53, his initial hemoglobin was 4.6. Later on, the patient became decompensated and required intubation in the emergency department. He has received IV fluid resuscitation and blood transfusion. His current hemoglobin is 9.2. He remains hypotensive and required vasopressor. The patient was evaluated by the account development representative. EGD was postponed given unstable hemodynamics. Of note, he spiked a temperature. T-max was 39.0. Septic workup was done. Currently, he is on Zyvox and meropenem. His initial serum creatinine was 1.88. Today, the value justice to 3.03. His initial potassium level was 5.8, peaked at 6.2. He received medical management treating for hyperkalemia. His current potassium level is 4.5. PAST MEDICAL HISTORY: CVA with right-sided hemiparesis and aphasia. No significant past medical history of kidney disease, diabetes, hypertension, according to the family. FAMILY HISTORY: Noncontributory. No kidney disease in the family. SOCIAL HISTORY: Denies current use of alcohol, tobacco, or illicit drugs. The patient received medical care mainly in [place]. ALLERGIES: No known drug allergies. MEDICATIONS: 1. Aspirin as needed. 2. Albuterol. 3. Vitamin D3. 4. Lorazepam. 5. Melatonin. REVIEW OF SYSTEMS: Unable to obtain due to being intubated. PHYSICAL EXAMINATION: Vitals: Temperature 37.4, pulse 106, respiratory rate 25, blood pressure 103/64, O2 sat 97% on mechanical ventilator with FiO2 of 40%. General appearance: Intubated, sedated on Levophed. HEENT: Moderate pallor, no icteric sclerae. No JVD. No lymphadenopathy. No thyroid enlargement. Atraumatic. Moist mucous membranes. ET tube in place. Heart: Regular rhythm. Normal S1, S2. Tachycardic. No murmurs, rubs, or gallops. Lungs: Equal breath sounds bilaterally. No wheezing. No rhonchi. Good air entry on full ventilator support. Abdomen: Soft, mild distention, decreased bowel sounds. No hepatosplenomegaly. No masses. Extremities: 1+ edema on the lower extremities, right more than left. A line placed on the right groin. LABORATORY: Sodium 136, potassium 4.5, chloride 96, bicarb 21, BUN 43, creatinine 3.03, glucose 93, lactic acid 3.3, calcium 7.5, total bilirubin 3.6, AST 1587, ALT 1267, albumin 2.7, hemoglobin 9.2, WBC 13.9, INR 1.32. UA specific gravity 1.024, pH 5.0, protein 30, over 50 RBCs, 6-10 WBCs, granular casts noted, troponin 3.17. ABG pH 7.427, pCO2 38.5, pO2 90, bicarb 24.9. ASSESSMENT: 1. Acute kidney injury secondary to ischemic acute tubular necrosis given multiple episodes of hypotension and severe anemia. 2. Anion gap metabolic acidosis secondary to uremia and lactic acidosis. 3. Severe anemia secondary to acute gastrointestinal blood loss. 4. Hypotension secondary to blood loss, suspected septic shock. 5. Elevated serum troponins in the setting of the severe hypertension. 6. Suspected shock liver. 7. Thrombocytopenia and coagulopathy, suspected DIC. 8. Hypoxic respiratory failure. 9. Underlying disease of cerebrovascular accident with right-sided hemiparesis. PLAN: 1. Per renal standpoint, we will continue supportive treatment for now. Will continue normal saline at 100 cc/hour. Keep MAP above 65 mmHg. 2. Will order a fibrinogen level. Repeat CBC, renal panel in a.m. We will reassess his volume status on a daily basis. If no improvement of the electrolyte derangement, likely he will require renal replacement therapy within 24-48 hours. 3. Avoid nephrotoxins. 4. Please adjust medication according to estimated GFR. Thank you for the consultation. We will monitor along with you. JAVEDD
[2016-11-13] MEDS ORDERED: Linezolid Inj 600 MG in IV Premix 1 EACH IV SCH (20:30)
[2016-11-13] MEDS ORDERED: 0.9% Sodium Chloride 1,000 ML IV SCH (22:40)
[2016-11-14] VITALS (15 sets, daily range): BP systolic 87–112; BP diastolic 37–60; PULSE 111–118; RESP 16–30; O2SAT 90–99
[2016-11-14] MEDS: Chlorhexidine 0.12% 15 mL Oral Solution MT SCH ×6 (00:01→20:56)
[2016-11-14] MEDS: Norepineph 8,000 mCg/250 mL NS 8,000 MCG in IV Premix 1 EACH IV SCH ×6 (01:50→23:14)
[2016-11-14] MEDS: Pantoprazole 8 mg/Hr Infusion IV SCH ×6 (01:50→22:02)
--- NOTE | 2016-11-14 03:46 | ABG ---
DateTimeAnalyzed 03:42:00 -_ pH ____7.335 - 7.350 7.450 pCO2 ___33.9__ -mmHg 35.0 45.0 pO2 ___58.8__ -mmHg 69.0 116 HCO3- ___17.6__ -mmol/L 22.0 26.0 ABE ___-7.1__ -mmol/L -2.0 2.0 tHb ____9.0__ -g/dL O2Hb ___85.9__ -% COHb ____1.7__ -% MetHb ____1.1__ -% sO2 ___88.4__ -% 25.0 FIO2 ___21.0__ -% PEEP ____5.0__ -cmH2O Set_RR ___16.0__ -b/min Vt __400.0__ -L Drawn By cf - Date/Time Notified____ 03:46:00 -_ Oxygen Device 1 VENTILATOR - Notified By cf - Notified Whom ___Dr. Gabriel - B 754 -mmHg tO2 ___10.9__ -Vol% Herve test N/A -
[2016-11-14 03:51] LABS: EOSINOPHILS % (AUTO) 0 % (0-5)
[2016-11-14 03:55] LABS: Mean Corpuscular Hemoglobin 21.4 pg (27.0-35.0); Mean Corpuscular Volume 72.3 fL (81-100); Platelet Count 131 bil/L (150-400)
[2016-11-14 04:09] LABS: INR 2.09 ratio
[2016-11-14 04:13] LABS: BASOPHILS % (AUTO) 0 % (0-3); MONOCYTES % (AUTO) 3 % (4-12); NEUTROPHILS % (AUTO) 73 % (40-74)
[2016-11-14] MEDS: Dexmedetomidine 400 mCg/100 mL 400 MCG in IV Premix 1 EACH IV SCH ×2 (04:28→23:14)
[2016-11-14] MEDS ORDERED: Calcium GLUCO 10% (Gm) Inj 2 GM in 0.9% Sodium Chloride 100 ML IV ONE ×2 (05:25→21:30)
[2016-11-14] MEDS ORDERED: 0.9% Sodium Chloride 1,000 ML IV ONE ×2 (05:40→17:38)
[2016-11-14] MEDS ORDERED: Insulin Human REGular 300 Unit/3 mL Inj IV ONE ×2 (05:45→21:30)
--- NOTE | 2016-11-14 07:15 | NUR ---
vent/bp/labs/right foot fio2 per vent .40 and increased to .60 in am post abg's, aware of abg results, no new orders, aware of lab results at beginning and end of shift, see orders for k+/lactic acid/calcium results, day shift rn aware of need for repeat lab results, bg=91 prior to d50 and insulin iv, aware of right foot without pulses -even with doppler and right fem a line intact, right foot cool and dark tinted, toes purple, right leg warm down to calf, scd's removed, le doppler ordered for this am, left foot pulses present per doppler, right foot swollen as per report, aware of uop per day shift and pt not voiding, md aware railway patrol officer states that cvp inaccurate due to pt's pulmonary htn and rv failure, ns started sidney 100ml/hr per railway patrol officer ok and hospitalist order, uop 10-15ml/hr, abd hypoactive, bt's abd soft /round, pt woke up with a start with abd palpation, ?painful, fentanyl titrated up during shift 75-100mcg/hr, ogt placement =wnl, lis, clamped when kayexelate given, potonix gtt at 10ml/hr, no bleeding noted, no bm, ls- course/decreased bases, sats low to mid 90's, resp [id number], higher this am, pt titrated off of propofol gtt at 5mcg/kg/min per order per report, precedex increased to 0.7mcg/kg/hr, pt calm on vent with intermittent coughing with stimulation, pt opens eyes with stimulation, legs weak, left arm movement seen, stiff to move, right arm somewhat contracted -hx cva, left picc intact, aware of am lab and abg results, see orders, see ccu flow sheet, tele- st, hr one teens, bp goal map>65, norepi gtt increased from 0.2 -0.5mcg/kg/min-- aware of need for more pressors also, temp=37.5 ax, see ccu flow sheet, plan: treat infection, vent support, report to day shift rn,
[2016-11-14] MEDS ORDERED: Phenylephrine/NS 100 mCg/mL 10 mL Syringe IVPUSH ONE (08:09)
[2016-11-14] MEDS ORDERED: Rocuronium 10 mg/mL 5 mL Inj ONE (08:09)
[2016-11-14] MEDS ORDERED: Ketamine 10 mg/mL 20 mL Inj ONE (08:09)
--- NOTE | 2016-11-14 09:02 | DRSVH ---
PROCEDURE: X-RAY CHEST ONE VIEW ([id number]) INDICATIONS: vent TECHNIQUE: One view of the chest was acquired. COMPARISON: None. FINDINGS: Surgical changes and devices: ETT tip projected 2.3 cm above the ailyn. Stable position of nasogast meenu tube. Lungs and pleura: No pneumothorax. Bibasilar airspace opacities, left greater than right and small l eft pleural effusion. Mediastinum: Mediastinal contours appear normal. Heart size is normal. Bones and chest wall: No suspicious bony lesions. Overlying soft tissues appear unremarkable. IMPRESSION: Bibasilar atelectasis versus aspiration or pneumonia. Correlate clinically. Dictated by: Mendez Meléndez RRA Interpreted: Rachel Martinez MD on 11/14/2016 at 9:01 Transcribed by: GAYATHRI on 11/14/2016 at 9:02 Approved by: Rachel Martinez MD, PhD on 11/14/2016 at 18:05
[2016-11-14] MEDS ORDERED: Albumin 25% 25 GM in IV Premix 1 EACH IV ONE (09:50)
[2016-11-14] MEDS: Meropenem Inj 500 MG in 0.9% Sodium Chloride 50 ML IV SCH (10:15)
--- NOTE | 2016-11-14 10:24 | PCM.PNNEPH ---
Subjective Date of Service Nov 14, 2016 Subjective Patient was seen and examined in the intensive care unit, the chart was reviewed and the case was discussed at length with Dr. Beasley from critical care. I have also discussed case with the patient's family through an crm marketing specialist. He remains quite, hypotensive despite high doses of pressors and on a ventilator. In the last 24 hours C7 143 and also urine output in the first 8 hours today he has had about 250 mL stone. Systolic blood pressure has been in the 70-80 range by cough and this is considerably lower than his arterial line pressure. In reviewing his chart reviewed his echocardiogram and he has considerable right sided cardiac pressures which is probably adding to some of his hepatic dysfunction along with this along with the hemorrhagic shock picture. There is also suggestion of a DVT and he is undergoing a venous Doppler. This morning his sodium is 135, potassium 6.4, chloride of 97, bicarbonate 15, BUN and creatinine were 52 and 3.89. His liver functions remain elevated but have improved somewhat. His lactic acid is 8.4 but this is considerably improved from previous readings. Exam Vital Signs Vital Sign - Last Date Time Temp Pulse Resp B/P Pulse Ox O2 Delivery O2 Flow Rate FiO2 11/14/16 10:08 114 97/50 92 80 11/14/16 04:00 37.4 22 Mechanical Ventilator 11/12/16 11:49 15 Intake and Output 11/13/16 11/13/16 11/14/16 Cumulative From/Thru 15:00 23:00 07:00 11/12/16 07:39 - 11/14/16 06:28 Intake Total 2296 ml 764 ml 2441 ml 42699 ml Output Total 525 ml 418 ml 300 ml 1773 ml Balance 1771 ml 346 ml 2141 ml 9050 ml Intake IV Total 2296 ml 684 ml 2441 ml 34475 ml Packed Cells 620 ml Tube Irrigant 80 ml 80 ml Output Urine Total 125 ml 18 ml 250 ml 498 ml Gastric Drainage Total 400 ml 400 ml 50 ml 875 ml Other 400 ml # Bowel Movements 0 0 Exam The patient is sedated and on a ventilator. There is some very mild scleral icterus noted. Neck is supple without adenopathy. Because of numerous lines and monitors it is difficult to fully assess his jugular venous pressure. His lungs show some scattered rales and rhonchi throughout his lung golden. Heart is tachycardic. Abdomen shows diminished bowel sounds and mild distention. The abdomen is soft with a pulsatile liver. Extremities showed some generalized pitting edema in both lower extremities more pronounced on the right as compared to the left. Lab and Diagnostics Result Diagram: 11/14/16 0330 11/14/16 0330 Microbiology UA 6-10 wbc, lots of epithelial cells. Repeat culture 11/13 is pending MRSA nasal swab negative Sputum culture pending Blood cultures 11/13 are pending X-Rays, CTs and MRIs PROCEDURE: X-RAY CHEST ONE VIEW ([id number]) IMPRESSION: 1. Left lower lobe pneumonia. Follow up plain films of the chest are recommended to ensure resolution, and to exclude underlying or central malignancy. 2. Tubes and catheters as above. Dictated by: Camilla Klein M.D. on 11/13/2016 at 9:09 PROCEDURE: X-RAY CHEST ONE VIEW, PORTABLE ([id number]) Lungs and pleura: No pleural effusions or pneumothorax. Evaluation limited due to patient rotation. There are a few linear medial left retrocardiac opacities likely representing atelectasis. IMPRESSION: 1. Linear left retrocardiac opacities likely represent atelectasis. Dictated by: Raudel Chester M.D. on 11/12/2016 at 11:06 PROCEDURE: CT CHEST, ABDOMEN AND PELVIS WITHOUT CONTRAST ([id number]) IMPRESSION: 1. No intra-abdominal or intrathoracic hematoma identified. 2. Marked irregular concentric wall thickening of the bladder with heterogeneous bladder contents and partial calcification of the bladder wall. The findings may represent sequelae of cystitis or bladder mass. Recommend correlation with clinical history and cystoscopy if indicated. 3. Small 3-4 mm right upper lobe nodule. A followup study may be performed in 12 months to demonstrate stability if indicated. Dictated by: Raudel Chester M.D. on 11/12/2016 at 12:37 PROCEDURE: US ABDOMEN, LIMITED ([id number]) IMPRESSION: Limited examination demonstrating no evidence of cholecystitis. Dictated by: Camilla Klein M.D. on 11/13/2016 at 10:39 . 12-lead ECG 11/12/16 07:38 sinus tach 106. Normal conduction intervals. [address] depression V2-V6. Q wave III, but not II, aVF. He/25 4/17 11:54 sinus rhythm 96. Normal conduction intervals. No significant ST depression. Plan Impression Impression #1 acute tubular necrosis secondary to acute upper GI bleed #2 hypovolemic shock #3 metabolic acidosis/lactic acidosis #4 hyperkalemia secondary to #1 and GI bleed Recommendations #1 to discontinue the IV fluids as I feel that he is fluid overloaded. I would also like to give him a single dose of 25 g of albumin IV and hopefully we will get a blood pressure response with this. His blood pressures are too low for Estratab dialysis right now and he has been given several doses of Kayexalate and I would recommend repeating another 30 g of Kayexalate via his NG tube. Next 24-48 hours will be quite critical for the patient. Raul Marin DO Nov 14, 2016 10:24
--- NOTE | 2016-11-14 10:35 | PCM.PNMED ---
Subjective Date of Service Nov 14, 2016 Subjective GASTROENTEROLOGY PROGRESS NOTE Mr. Fields remains intubated and sedated in CCU on high-dose pressor support with norepi at 0.55. No further evidence of coffee-ground substance through NG suction at this time. NG suction appears yellow/bile-like. No acute distress noted. BP remains labile, and mismatch with art-line and arm cuff. New finding of suspected RLE arterial clot, stat doppler ordered and pending. No evidence overt bleeding at this time. Elev lactic at 8.4 this am. Exam Vital Signs Vital Sign - Last Date Time Temp Pulse Resp B/P Pulse Ox O2 Delivery O2 Flow Rate FiO2 11/14/16 07:49 90 104/55 91 60 11/14/16 04:00 37.4 22 Mechanical Ventilator 11/12/16 11:49 15 Intake and Output 11/13/16 11/13/16 11/14/16 Cumulative From/Thru 15:00 23:00 07:00 11/12/16 07:39 - 11/14/16 06:28 Intake Total 2296 ml 764 ml 2441 ml 19291 ml Output Total 525 ml 418 ml 300 ml 1773 ml Balance 1771 ml 346 ml 2141 ml 9050 ml Intake IV Total 2296 ml 684 ml 2441 ml 62127 ml Packed Cells 620 ml Tube Irrigant 80 ml 80 ml Output Urine Total 125 ml 18 ml 250 ml 498 ml Gastric Drainage Total 400 ml 400 ml 50 ml 875 ml Other 400 ml # Bowel Movements 0 0 Exam General: Intubated and sedated; no acute distress HEENT: Atraumatic; sclera anicteric; ETT in place Neck: Trachea midline Cardiac: Tachycardic rate at approx 117 at time of evaluation Respiratory: Adequate air flow all golden; no crackles Abdomen: Soft, nondistended; cannot accurately assess for pain secondary to sedation Extremities: BLUE edematous; RLE cool distally from toes to ankle with coloration change to dusky blue, dorsalis pulse not manually palpable; LLE warm , pink and intact dorsalis pedis pulse Skin: Warm and dry Neuro: Cannot assess secondary to sedation Psych: Cannot assess secondary to sedation Lab and Diagnostics Result Diagram: 11/14/16 0330 11/14/16 0330 Microbiology UA 6-10 wbc, lots of epithelial cells. Repeat culture 11/13 is pending MRSA nasal swab negative Sputum culture pending Blood cultures 11/13 are pending X-Rays, CTs and MRIs PROCEDURE: X-RAY CHEST ONE VIEW ([id number]) IMPRESSION: 1. Left lower lobe pneumonia. Follow up plain films of the chest are recommended to ensure resolution, and to exclude underlying or central malignancy. 2. Tubes and catheters as above. Dictated by: Camilla Klein M.D. on 11/13/2016 at 9:09 PROCEDURE: X-RAY CHEST ONE VIEW, PORTABLE ([id number]) Lungs and pleura: No pleural effusions or pneumothorax. Evaluation limited due to patient rotation. There are a few linear medial left retrocardiac opacities likely representing atelectasis. IMPRESSION: 1. Linear left retrocardiac opacities likely represent atelectasis. Dictated by: Raudel Chester M.D. on 11/12/2016 at 11:06 PROCEDURE: CT CHEST, ABDOMEN AND PELVIS WITHOUT CONTRAST ([id number]) IMPRESSION: 1. No intra-abdominal or intrathoracic hematoma identified. 2. Marked irregular concentric wall thickening of the bladder with heterogeneous bladder contents and partial calcification of the bladder wall. The findings may represent sequelae of cystitis or bladder mass. Recommend correlation with clinical history and cystoscopy if indicated. 3. Small 3-4 mm right upper lobe nodule. A followup study may be performed in 12 months to demonstrate stability if indicated. Dictated by: Raudel Chester M.D. on 11/12/2016 at 12:37 PROCEDURE: US ABDOMEN, LIMITED ([id number]) IMPRESSION: Limited examination demonstrating no evidence of cholecystitis. Dictated by: Camilla Klein M.D. on 11/13/2016 at 10:39 . 12-lead ECG 11/12/16 07:38 sinus tach 106. Normal conduction intervals. [address] depression V2-V6. Q wave III, but not II, aVF. 12/05 11:54 sinus rhythm 96. Normal conduction intervals. No significant ST depression. Assessment & Plan GASTROENTEROLOGY PROGRESS NOTE Mr. 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 History is obtained from chart review, as patient is intubated and sedated. Chart review indicates that Mr. Fields may have had a similar episode a few months ago, but did not seek medical attention. No known history of chronic NSAID use, family reported beer ingestion but not in excess, and no known history of previous EGD, PUD, or cirrhosis. - CT C/A/P wo/contrast 11/12: No intra-abdominal or intrathoracic hematoma identified. Marked irregular concentric wall thickening of the bladder with heterogeneous bladder contents and partial calcification of the bladder wall. The findings may represent sequelae of cystitis or bladder mass. Recommend correlation with clinical history and cystoscopy if indicated. Small 3-4 mm right upper lobe nodule. No focal lesions of liver or gallstones observed but difficult to assess secondary to motion artifact. - US abd LTD 11/13: Limited examination demonstrating no evidence of cholecystitis. Assessments - Elevated LFTs likely secondary to ongoing sepsis vs ischemic hepatitis due to hypoperfusion - Hematemesis and suspected melena likely secondary to UGIB of unknown etiology , suspect ulceration Recs: - Continue supportive tx per primary/ICU teams - Hold off EGD until patient is stabilized - Continue protonix gtt - Monitor HH and transfuse per primary team prn - consider pallative care consult - Prognosis Poor Thank you for this consult, we will follow along at this time. Total time: 40 minutes GI Prophylaxis: Proton Pump Inhibitor VTE Prophylaxis: SCDs VTE Mechanical Devices: Intermittant Pneumatic CD Resuscitation Status: CPR: Attempt Resuscitation Anna Hinojosa DO Nov 14, 2016 09:07 Kunal Luna MD Nov 14, 2016 15:16
--- NOTE | 2016-11-14 11:05 | NUR ---
NUTRITION ASSESSMENT Assess: 65 YO Prydeinig speaking male admitted for upper GI bleed. Pt currently requiring mechanical ventilation. Per CCU rounds, pt has poor PO intake 4 days prior to admit. Possible scope today. PMHX: CVA, possibly cognitive impairment-likely dementia. DIET: NPO. LABS: K+ 6.4, BUN 52, CR 3.89, Alb 2.6, Lactic acid 8.4, Ca 6.7, AST 951, ALT 1203 MEDICATIONS: Precedex, Fentanyl, Pressor. GI: No BM noted. SKIN: No issues noted. ANTHROPOMETRICS: Wt: 86.9 kg, BMI 30.9 kg/m2, Admit wt: 87.3 kg, IBW: 64.5 kg. ESTIMATED NEEDS: VENT/BMI/BETTINA Calories: 6935-0406 kcal/day (20-22 kcal/kg BW) Protein: 77-97 g/day (1.2-1.5 g/kg IBW) NUTRITION DIAGNOSIS: 1) Inadequate oral intake related to decreased ability to consume sufficient energy as evidenced by NPO/Vent status. INTERVENTION: 1) Will await plan of care decisions. If pt remains intubated recommend starting nutrition support. MONITOR/EVALUATE: NPO/Vent status, GI, labs, nutrition support, nutrition status. Follow per high nutrition risk guidelines.
[2016-11-14] MEDS ORDERED: Sodium Bicarb 8.4% Inj 150 MEQ in Water Sterile for Injection 1,000 ML IV ONE (11:30)
--- NOTE | 2016-11-14 12:08 | PROG NOTE ---
[address] [address] PROGRESS NOTE PATIENT: RAMA NAVARRO : 1950 MR#: [id number] ADMIT: 11/12/2016 JOB ID: [id number] DATE: 11/14/2016 PULMONARY CRITICAL CARE PROGRESS NOTE: The patient is a 65-year-old man admitted on November 13 with severe blood loss anemia, likely from GI bleed, metabolic acidosis, respiratory failure, and now renal failure. The patient was seen and evaluated with resident physician, Dr. Nicolasa Sarmiento. Please refer to her separate detailed note for additional information. INTERVAL HISTORY: He remains on mechanical ventilation. His urine output has steadily dropped, and he has only made about 20 cc of urine in the last 8 hours. Potassium has gone up to 6.5. He has been too unstable to have an endoscopy done for his suspected GI bleed. REVIEW OF SYSTEMS: Unable to obtain since the patient is intubated. PHYSICAL EXAMINATION: Vital signs reviewed. T-max of 39 on November 13, pulse 114, respirations 22, BP 104/55. Sats 91% on 60% FiO2. General: Intubated, sedated, unresponsive. Chest: Occasional bilateral rhonchi. Heart: Regular rate, rhythm. No murmurs. Abdomen is distended and slightly firm but not tender. He does have bilateral lower extremity edema with right toes showing some discoloration and duskiness, although pulses are dopplerable. LABORATORIES: Reviewed. WBC is up to 23.6 from 13.9 yesterday. Hemoglobin 8.9, stable compared to yesterday morning. Platelets 131. Coags: INR is 2.09. Chemistry shows sodium 136, potassium 6.4, chloride 97, and bicarb down to 15 from 19 yesterday. BUN is up to 52 and creatinine continues to rise. It is 3.89 today. Lactate is 8.4, which is improved from 20 on admission. AST is down to 951 and ALT down to 1200. Chest x-ray reviewed and shows developing left basilar/retrocardiac infiltrate, new compared to prior. Arterial blood gas reviewed and shows pH of 7.33, pCO2 of 33, pO2 of 58, and bicarb of 17.6. ASSESSMENT AND RECOMMENDATIONS: 1. Severe blood loss anemia. 2. Upper gastrointestinal bleed. 3. Acute hypoxic respiratory failure, on mechanical ventilation since November 12. 4. Severe metabolic acidosis. 5. Acute renal failure. 6. Transaminitis due to acute liver injury. 7. Multifactorial shock. 8. Prior history of known stroke with right-sided weakness. A 65-year-old man with known distant history of stroke with right-sided hemiparesis who is originally from [place] was here visiting family. He presented to the emergency room on November 12 with severe anemia and hemoglobin of 4, hypotensive, minimally responsive with a pH of 6.9 with severe metabolic and lactic acidosis. He has been intubated and developing progressive multiorgan failure since that time. Transaminitis does seem to be improving, and most likely this is from shock liver. His kidney function, however, continues to worsen and his urine output has been dropping steadily with rising potassium. Nephrology is involved and is planning on getting him some Kayexalate. Bicarb drip was stopped yesterday because of alkalemia, but I see that bicarb is going back down again, and his pH is trending towards the acidemic side as above. I am going to talk to Nephrology and see if we should restart the bicarb drip. He was getting normal saline which has been stopped. With regards to his echocardiogram which shows evidence of right ventricular pressure overload with an RVSP of only 40 mm, I am not sure how to explain this unless he had an acute pulmonary embolism. Certainly, longstanding issues should have a higher pressure in association with RV overload. He had the lower extremity deep venous thrombosis study pending. He cannot have intravenous contrast, obviously, because of his kidney injury. He is getting Precedex and fentanyl, and propofol has been stopped. He is not getting deep venous thrombosis prophylaxis due to the bleed but getting a proton pump inhibitor drip for his gastrointestinal bleed. CRITICAL CARE TIME: 60 minutes. MISA
[2016-11-14] MEDS: fentaNYL 2,500 mCg/250 mL 2,500 MCG in IV Premix 1 EACH IV SCH (12:13)
[2016-11-14] MEDS: Propofol Inj 1,000,000 MCG in IV Premix 1 EACH IV SCH (12:15)
--- NOTE | 2016-11-14 12:58 | PCM.PNMED ---
Subjective Date of Service Nov 14, 2016 Subjective 65-year-old man with history of cerebrovascular disease presented on 11/12 with acute blood loss anemia, acute respiratory failure with hypoxia, metabolic acidosis, myocardial infarction and circulatory shock. He has subsequently developed oliguric renal failure, acute infectious process likely pneumonia, LFT elevations. Patient remains sedated on the ventilator. No stool output. Minimal urine output. Exam Vital Signs Vital Sign - Last Date Time Temp Pulse Resp B/P Pulse Ox O2 Delivery O2 Flow Rate FiO2 11/14/16 10:25 114 97/50 92 60 11/14/16 04:00 37.4 22 Mechanical Ventilator 11/12/16 11:49 15 Intake and Output 11/13/16 11/13/16 11/14/16 Cumulative From/Thru 15:00 23:00 07:00 11/12/16 07:39 - 11/14/16 06:28 Intake Total 2296 ml 764 ml 2441 ml 11610 ml Output Total 525 ml 418 ml 300 ml 1773 ml Balance 1771 ml 346 ml 2141 ml 9050 ml Intake IV Total 2296 ml 684 ml 2441 ml 51882 ml Packed Cells 620 ml Tube Irrigant 80 ml 80 ml Output Urine Total 125 ml 18 ml 250 ml 498 ml Gastric Drainage Total 400 ml 400 ml 50 ml 875 ml Other 400 ml # Bowel Movements 0 0 Exam General: Generally healthy-appearing, sedated on ventilator HEENT: sclerae anicteric Neck: 4-6 cm JVD above the sternal notch Chest: Coarse ventilator breath sounds, Generally clear to auscultation; PICC line Cardiac: Tachycardic S1S2, no murmur appreciated Abdomen: BS reduced, mildly distended firm but not tense; Lisa catheter; right groin arterial line Extremities: 2+ edema on right leg, trace on left Neuro: Sedated, motor tone normal, right-sided upper extremity contraction, hyper reflexes on right upper and lower IVs and Medications Medications Reviewed: Medications were reviewed in detail Lab and Diagnostics Fractional excretion of sodium 0.35% Procalcitonin 80.2 LFTs: Total bili 8.5, AST 951 (declining), ALT 08/22/2002 (stable) INR 2.09 (increased from 1.32); PT 22.7 (previously 14.2); fibrinogen normal Result Diagram: 11/14/16 0330 11/14/16 0330 Microbiology 11/13 UA 6-10 wbc, hematuria. No bacteria. MRSA nasal swab negative Sputum culture pending Blood cultures 11/13 are pending X-Rays, CTs and MRIs PROCEDURE: X-RAY CHEST ONE VIEW ([id number]) IMPRESSION: Bibasilar atelectasis versus aspiration or pneumonia. Correlate clinically. Dictated by: Mendez Meléndez RRA Interpreted: Rachel Martinez MD on 11/14/2016 at 9:01 PROCEDURE: X-RAY CHEST ONE VIEW ([id number]) IMPRESSION: 1. Left lower lobe pneumonia. Follow up plain films of the chest are recommended to ensure resolution, and to exclude underlying or central malignancy. 2. Tubes and catheters as above. Dictated by: Camilla Klein M.D. on 11/13/2016 at 9:09 PROCEDURE: X-RAY CHEST ONE VIEW, PORTABLE ([id number]) Lungs and pleura: No pleural effusions or pneumothorax. Evaluation limited due to patient rotation. There are a few linear medial left retrocardiac opacities likely representing atelectasis. IMPRESSION: 1. Linear left retrocardiac opacities likely represent atelectasis. Dictated by: Raudel Chester M.D. on 11/12/2016 at 11:06 PROCEDURE: CT CHEST, ABDOMEN AND PELVIS WITHOUT CONTRAST ([id number]) IMPRESSION: 1. No intra-abdominal or intrathoracic hematoma identified. 2. Marked irregular concentric wall thickening of the bladder with heterogeneous bladder contents and partial calcification of the bladder wall. The findings may represent sequelae of cystitis or bladder mass. Recommend correlation with clinical history and cystoscopy if indicated. 3. Small 3-4 mm right upper lobe nodule. A followup study may be performed in 12 months to demonstrate stability if indicated. Dictated by: Raudel Chester M.D. on 11/12/2016 at 12:37 PROCEDURE: US ABDOMEN, LIMITED ([id number]) IMPRESSION: Limited examination demonstrating no evidence of cholecystitis. Dictated by: Camilla Klein M.D. on 11/13/2016 at 10:39 . 12-lead ECG 11/12/16 07:38 sinus tach 106. Normal conduction intervals. [address] depression V2-V6. Q wave III, but not II, aVF. 12/05 11:54 sinus rhythm 96. Normal conduction intervals. No significant ST depression. Cardiac Echo Impressions Echocardiogram Report Name: RAMA NAVARRO Study Date: 11/13/2016 Interpretation Summary Normal sinus rhythm. Normal LV size, wall thickness; there is basal inferior wall akinesis; otherwise normal wall motion. LV is D shaped in both systole and diastole c/w RV pressure overload. Estimated PA systolic pressure is 40 mm Hg assuming RA pressure of 10 mm Hg. RV is severely dilated with severely reduced RV function. No prior study is available for comparison. . Assessment & Plan 65-year-old man with atherosclerotic disease presents with acute GI blood loss anemia, acute respiratory failure with hypoxia, metabolic acidosis, NSTEMI and acute oliguric kidney injury. # Cardiac: Hemodynamics & Rhythm - blood pressure 80/53 on admission. Hemodynamic shock due to GI blood loss anemia. NSTEMI related to hemodynamic shock and anemia. Now with evidence of fluid overload and oliguria. CVP approximately 20 mmHg. cardiac echo reveals right heart failure with septal impingement but otherwise reasonable LV function. Unclear whether CHF is contributed to this oliguric renal failure. - Discontinue IV fluids - norepinephrine as needed, try to reduce sedation and pressors to enhance renal perfusion - Telemetry monitoring - Maintain MAP greater than 65 mmHg - Echocardiogram today with cardiology consult for CAD and CHFassessment # Renal - acute kidney injury with serum creatinine 1.88 on admission. Now in oliguric renal failure. FENa is low, but clinical picture seems likely ATN due to GI blood loss and hypotension. - Fluid management and albumin infusion per nephrology home energy consultant supervisor - Daily BMP - Goal urine output greater than 0.5 mL/KG/MR - Renal medication dosing # Respiratory function - Acute respiratory failure with hypoxia. Intubated due to inadequate ventilatory response to acute metabolic acidosis. Also acute hypoxemia likely due to severe anemia. Initial chest x-ray unremarkable. Chest CT with no intrinsic pulmonary pathology at time of admission. Subsequent chest x-ray suggests left lower lobe infiltrate. VBG revealed significant acidemia with inadequate respiratory compensation prior to intubation. After bicarbonate infusion, ABG revealed combined metabolic and respiratory alkalosis. He received bicarbonate infusion has been discontinued. - Reduce FiO2; continue 5 cm PEEP - Ventilator bundle ordered including sedation vacation and SBT; - Precedex preferred to propofol, to see if we can wean off nor epi, otherwise fentanyl and propofol as needed # Lines, I/O's, fluids and electrolytes - hyperkalemia with potassium 5.8 on admission. Metabolic acidosis, acute. Anion gap 34. Likely due to symptomatic anemia with type II lactic acidosis. - Minimize IV fluids - Kayexalate as needed for hyperkalemia - Repeat BMP today and daily. - Monitor and supplement electrolytes - Arterial line ordered, placed in right femoral; hope to discontinue within 24- 48 hours # Infectious disease status - fever to 39.0 on 11/13, fever curve now declining on 11/14. Marked leukocytosis seems to be progressive, despite starting antibiotics on 11/13. Tracheal secretions are mild. Checks x-ray on 11/13 appears to show left lower lobe infiltrate, loss of left diaphragm contour, with right perihilar interstitial pattern. Gallbladder was not well visualized on CT scan. Initial UA was contaminated. Quiet abdomen and pressors raise concern for ischemic bowel. Probable diagnosis for acute leukocytosis and fever is pneumonia, presenting less than 48 hours after hospitalized. - Infectious disease consult - Follow culture data: Sputum, repeat urine, blood - Daily chest x-ray - Antibiotics: Renally dosed meropenem; linezolid initially ordered but will discontinue in light of negative MRSA; adjustments per ID home energy consultant supervisor - Daily CBC # Hematological - cute symptomatic anemia, GI blood loss. Stool guaiac positive but firm and impacted per emergency department physician. RBC indices indicate microcytic. Likely acute on chronic in nature. INR is mildly elevated 1.3 on admission, and has progressed due to hepatic dysfunction and delusional effects. 4 units PRBC administered with a rising hemoglobin to 9.2. - Acute GI bleeding orders: Peripheral IVs in central PICC access - Monitor clinically for further blood loss; stool guaiac - Administer FFP if evidence of further bleeding # GI, diabetes, and nutritional status - no signs of acute ongoing blood loss. LFTs were mildly abnormal, on admission but is now developed marked hyperbilirubinemia and transaminase elevations.. INR is slightly elevated. Unclear whether patient has cirrhosis, family denies significant alcohol history. Likely hepatic dysfunction secondary to right heart failure and sepsis. - Nothing by mouth since 11/11 - IV Protonix for presumed upper GI bleeding - Bowel sounds seem hypoactive with no stool output; vigilance for ischemic bowel - GI service consulted. Will plan endoscopy after patient hemodynamically stable. 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 - Monitor clinically - Sedation only as needed # Pain status - no apparent pain issues # Venous thromboembolism prophylaxis: - Lower extremity Doppler was ordered, although anticoagulation does not seem to be a good option due to GI bleeding - Mechanical prophylaxis only in the setting of acute GI bleeding - Acute right leg swelling is chronic related to his past CVA. # GI prophylaxis: - IV pantoprazole # Goals of care, expected hospital duration, discharge planning: Communicate medical status to family with ticket collector or usher. - Admitted to inpatient status with expectation of care greater than 48 hours - Discussed with family who concur with aggressive care including the IA and intubation for short-term reversible medical issues. Disposition planning: Patient is currently admitted to the critical care unit with expectation of greater than 2 nights of inpatient care. GI Prophylaxis: Proton Pump Inhibitor VTE Prophylaxis: SCDs VTE Mechanical Devices: Intermittant Pneumatic CD Resuscitation Status: CPR: Attempt Resuscitation Time spent 45 minutes Will Gabriel MD Nov 14, 2016 12:58
--- NOTE | 2016-11-14 15:17 | PCM.PNMED ---
Subjective Date of Service Nov 14, 2016 Subjective Intensive/Pulmonology Progress Note: Attending Dr. Gale Fields is a 65-year-old male with a past medical history significant for CVA with residual right-sided hemiparesis who presented to [facility] Emergency Department with acute blood loss anemia, acute hypoxemic respiratory failure, severe metabolic acidosis, and multifactorial shock. Now with oliguric acute renal failure, bibasilar pneumonia, and transaminitis. Hospital day #3. Overnight telemetry: Sinus tachycardia, heart rate 100 to 120s, without ectopy. Subjective exam and review of systems unobtainable as patient is intubated and sedated. . Exam Vital Signs Vital Sign - Last Date Time Temp Pulse Resp B/P Pulse Ox O2 Delivery O2 Flow Rate FiO2 11/14/16 10:25 114 97/50 92 60 11/14/16 04:00 37.4 22 Mechanical Ventilator 11/12/16 11:49 15 Intake and Output 11/13/16 11/13/16 11/14/16 Cumulative From/Thru 15:00 23:00 07:00 11/12/16 07:39 - 11/14/16 06:28 Intake Total 2296 ml 764 ml 2441 ml 98612 ml Output Total 525 ml 418 ml 300 ml 1773 ml Balance 1771 ml 346 ml 2141 ml 9050 ml Intake IV Total 2296 ml 684 ml 2441 ml 10077 ml Packed Cells 620 ml Tube Irrigant 80 ml 80 ml Output Urine Total 125 ml 18 ml 250 ml 498 ml Gastric Drainage Total 400 ml 400 ml 50 ml 875 ml Other 400 ml # Bowel Movements 0 0 Exam General: Older gentleman in no acute distress, intubated and sedated. HEENT: Normocephalic, atraumatic. External ears without defect. Pupils equal, round, and reactive to light. Anicteric sclerae and moist conjunctivae. Endotracheal tube in place Neck: No lymphadenopathy or thyromegaly. Cardiovascular: Regular rhythm, tachycardic, without murmurs, rubs, or gallops appreciated Pulmonary: Clear to auscultation bilaterally with no crackles, wheezes, or rhonchi. Normal respiratory effort with no use of accessory muscles. Abdomen: Firm, mildly distended, bowel sounds hypoactive. Extremities: Right lower extremity edematous, cold, and cyanotic. Left lower extremity good pulses. Skin: Normal temperature, turgor, and texture; no rash, ulcers, or subcutaneous nodules appreciated. Neurological: Intubated and sedated. Right-sided upper extremity contraction. Ventilator settings: PRVC. Tidal volume 400. Respiratory rate 16. FiO2 40 %. PEEP 5.0. Peak. Plateau. ABG: PH 7.325. PCO2 33.9. PO2 58.8. HCO3 17.6. On PRVC with FiO2 40 %, PEEP 5.0, and SPO2 of 88.4%. IV drips and Sedatives: Fentanyl 100 g/hr, propofol 5 g/kg/min, Precedex 0.7 g/kg/hr. Norepinephrine 0.55 g/kg/min. IV lines: Left PICC line, right femoral arterial line. I&O: Net + 9050. . IVs and Medications Medications Reviewed: Medications were reviewed in detail Lab and Diagnostics Item Value Date Time Calcium Level 6.7 mg/dL *L 11/14/16 033 Total Bilirubin 8.5 mg/dL H 11/14/16 0330 Aspartate Amino Transf (AST/SGOT) 951 U/L H 11/14/16 0330 Alanine Aminotransferase (ALT/SGPT) 1203 U/L H 11/14/16 0330 Alkaline Phosphatase 87 U/L 11/14/16 0330 Total Creatine Kinase 472 U/L H 11/14/16 0330 Total Protein 5.4 g/dL L 11/14/16 0330 Albumin 2.6 g/dL L 11/14/16 0330 Result Diagram: 11/14/16 0330 11/14/16 033 Microbiology Urine has no growth to date. Repeat urine culture has no growth to date. Sputum culture grew light normal kathy. MRSA screen negative. Blood culture 2 has no growth after 24 hours. . X-Rays, CTs and MRIs X-RAY CHEST ONE VIEW, PORTABLE IMPRESSION: Bibasilar atelectasis versus aspiration or pneumonia. Correlate clinically. Dictated by: Mendez JOVEL Interpreted: Rachel Martinez MD on 11/14/2016 at 9:01 X-RAY CHEST ONE VIEW, PORTABLE Lungs and pleura: No pleural effusions or pneumothorax. Evaluation limited due to patient rotation. There are a few linear medial left retrocardiac opacities likely representing atelectasis. IMPRESSION: 1. Linear left retrocardiac opacities likely represent atelectasis. Dictated by: Raudel Chester M.D. on 11/12/2016 at 11:06 CT CHEST, ABDOMEN AND PELVIS WITHOUT CONTRAST IMPRESSION: 1. No intra-abdominal or intrathoracic hematoma identified. 2. Marked irregular concentric wall thickening of the bladder with heterogeneous bladder contents and partial calcification of the bladder wall. The findings may represent sequelae of cystitis or bladder mass. Recommend correlation with clinical history and cystoscopy if indicated. 3. Small 3-4 mm right upper lobe nodule. A followup study may be performed in 12 months to demonstrate stability if indicated. Dictated by: Raudel Chester M.D. on 11/12/2016 at 12:37 US ABDOMEN, LIMITED IMPRESSION: Limited examination demonstrating no evidence of cholecystitis. Dictated by: Camilla Klein M.D. on 11/13/2016 at 10:39 . 12-lead ECG EKG per admission note: Sinus tach 106. Normal conduction intervals. [address] depression V2-V6. Q wave III, but not II, aVF. . Cardiac Echo Impressions Echocardiogram Interpretation Summary: Normal sinus rhythm. Normal LV size, wall thickness;l there is basal inferior wall akinesis; otherwise normal wall motion. LV is D shaped in both systole and diastole c/w RV pressure overload. Estimated PA systolic pressure is 40 mm Hg assuming RA pressure of 10 mm Hg. RV is severely dilated with severely reduced RV function. No prior study is available for comparison. Reading Physician:05:15 PM . Assessment & Plan Krzysztof Fields is a 65-year-old male with a past medical history significant for CVA with residual right-sided hemiparesis who presented to [facility] Emergency Department with acute blood loss anemia, acute hypoxemic respiratory failure, severe metabolic acidosis, and multifactorial shock. Now with acute altered renal failure, bibasilar pneumonia, and transaminitis. Hospital day #3. 1. Acute refractory shock with multiorgan dysfunction, present on admission. Active. - Multifactorial and likely secondary to cardiogenic, hypovolemic, and probably a component of septic shock contributing. - SIRS criteria met for sepsis include: Hypothermia (temperature 35.8C), tachypnea (respiratory rate 22), tachycardic (pulse 117) , with a leukocytosis of 18.8 and a lactic acid of 20.8 and unresponsive to IV fluid resuscitation. Suspected sources of infection and profound lactic acidosis include: probable pneumonia versus ischemic limb versus infarcted bowel versus GI infection versus SBP? - Early goal-directed therapy met including: IV fluid resuscitation and broad- spectrum antibiotic coverage. - Continue norepinephrine and titrate off as tolerated. 2. Acute NSTEMI, present on admission. Active. - Likely stress induced secondary to hypovolemia and shock. - Initial troponin 0.104. Trending when last checked. - EKG on admission showed ST depression in V2-V6 and a Q wave III, but not II, aVF.as above per admission note. - Echocardiogram shows preserved EF of 55-60% with severe RV dilatation and function, as above. - Right leg swelling present and possibly chronic with h/o CVA. Doppler venous ultrasound ordered and pending. RLE cyanotic/ischemic and highly considering surgical consultation. 3. Acute hypoxemic respiratory failure, present on admission. Active. - Chest x-ray revealed bibasilar atelectasis versus aspiration or pneumonia, as above. - Continue ventilator with settings, as above. - Continue ABG daily for ventilator management. - Continue propofol and fentanyl for sedation, as above. - Procalcitonin highly elevated at 80 but in the setting of acute renal failure. - Sputum culture grew light normal kathy, MRSA screen negative and blood culture 2 has no growth after 24 hours. Ordered respiratory viral PCR, streptococcus and legionella urine antigens to complete pneumonia workup. - Continue meropenem per ID. 4. Acute upper gastrointestinal bleed, present admission. Active. - Patient reportedly had hematemesis. - Continue PPI. - Mechanical DVT prophylaxis in the setting of acute GI bleeding. 5. Acute severe blood loss anemia, present admission. Active. - Presented with severe anemia and hemoglobin of 4.6, hypotensive, and minimally responsive. - Received 4 units PRBC's. - Hemoglobin and hematocrit stable. Continue to monitor closely. 6. Acute oliguric renal failure, present on admission. Active. - Likely secondary to ATN from acute GI blood loss and hypotension/hypovolemia. - Creatinine 1.88 on admission. Creatinine continues to trend up and the patient is now oliguric. - Hyperkalemic at 6.4. Ordered Kayexalate 30 g 1. - Avoid nephrotoxic agents. - Continue to monitor urine output and renal function daily. - Nephrology consulted today for likely hemodialysis in the near future. We appreciate their time and recommendations. 7. Severe anion gap metabolic acidosis, present on admission. Active. - Initially presented with a with a pH of 6.9 with severe metabolic and lactic acidosis. Initial anion gap was 34 with highly elevated lactic acid at 20.8. - Discontinued fluids as there is evidence of fluid overload. - Restarted bicarbonate drip at 50 mL/hr in sterile water as patient was becoming more acidotic. - Treat underlying likely process which is likely infectious but somewhat unclear . May be ischemic bowel with rising lactic acidosis and now ischemic limb versus bibasilar pneumonia. 8. Transaminitis due to acute liver injury. - Likely secondary to shock liver. - LFTs slowly improving. - Avoid hepatotoxic agents. - Continue to monitor LFTs daily. 9. Prior history of known stroke with right-sided weakness. - Holding aspirin as patient presented with acute GI bleed. Continue statin. Disposition planning: Bleek based on multiorgan system failure. . GI Prophylaxis: Proton Pump Inhibitor VTE Prophylaxis: SCDs VTE Mechanical Devices: Intermittant Pneumatic CD Resuscitation Status: CPR: Attempt Resuscitation Attending Statement I have seen and examined this patient with the resident physician. Vital signs , labs, imaging have been reviewed. I agree with the assessment and plan above. Please refer to my separately dictated progress note for any modifications to above. Martina Beasley M.D. Pulmonary and Critical Care medicine Pager [phone] Nicolasa Sarmiento DO Nov 14, 2016 12:13 Martina Beasley MD Nov 15, 2016 08:11
[2016-11-14] MEDS ORDERED: Heparin 25K Unit/500mL 0.45 NS 25,000 UNIT in IV Premix 1 EACH IV SCH (15:40)
[2016-11-14] MEDS ORDERED: Heparin 5,000 Unit/mL Inj IVPUSH PRN (15:40)
--- NOTE | 2016-11-14 16:10 | CONS ---
[address] [address] CONSULTATION REPORT PATIENT: RAMA NAVARRO : 1950 MR#: [id number] ADMIT: 11/12/2016 JOB ID: [id number] DATE OF SERVICE: 11/14/2016 INFECTIOUS DISEASE CONSULTATION: We thank Dr. Mendez Gabriel for this consult. DATE OF SERVICE: REASON FOR CONSULTATION: Refractory septic shock in a patient with ongoing GI bleeding, renal failure, respiratory failure, hepatic injury and ischemic right lower extremity. HISTORY OF PRESENT ILLNESS: The patient is a 65-year-old gentleman who hails from [facility]. He has lived his entire life in the [place] and came to the [facility] and lived here in [facility] just the past couple of months arriving in August of 2016. While living in [place], he had sustained some major problems with his health in that he had a stroke and suffered a left brain stroke with resultant aphasia and right hemiparesis about nine years ago. He was able to get around with a walker and occasionally with a cane but never walk normally after that severe neurologic event. In addition back last year some time in [place], he had a series of GI bleeds which led to multiple abdominal surgeries with what sounds like an anastomotic failure during one of the surgeries prompting more surgery. Aside from his stroke and his GI bleeding, his history is relatively clean and as far as we know he has no underlying heart disease, diabetes or hypertension. His past medical history in [place] really begins three or four weeks ago when he developed some decreased oral intake, nausea, weakness and malaise. The family thinks his weakness had perhaps started about eight months ago while he was still living in [place], but really in the past three weeks or so his symptoms started to become more acute with the nausea, decreased oral intake and a flu-like illness he suffered and never quite recovered from. These problems became more emergent over the last 3-4 days and eventually he was brought to the emergency department on the and admitted to this facility. The complaint which tipped him over to bring him here was that he had had some bloody stools and was starting to become short of breath and progressively weaker. At the time of his evaluation in the emergency department, he was reported to have bloody stools and hematemesis with a hemoglobin of only 4.6. He also was noted to have profound weakness and was unable to ambulate at all. His family also said that his right lower extremity had been swelling for a period of time and this was gradually getting worse and limiting his ability to get around. Starting with the ED visit, of course, the patient started to receive good quantities of IV fluids to support his blood pressure but his blood pressure continued to slide in spite of transfusions of red cells and appropriate fluid resuscitation. This eventually led during his first hospital stay to the need for vasopressor agents and intubation. Since then he has been super critically ill in the ICU. No additional history could be garnered from the patient really after he got to the ED and certainly after he was intubated later that day. The family tells us about a progressive decline for eight months, somewhat worse for the last three weeks following a flu-like illness and then finally symptoms of GI bleeding. His overall situation in the hospital though has been far more complicated in that he has had refractory shock requiring extremely high doses of vasopressors associated with hepatic injury as well as acute renal failure. Compounding this, his right lower extremity swelling which is felt to be possibly on the basis of a DVT, has dramatically worsened and even during today the nurses and physicians taking care of him report that his foot has gone from looking a little bit erythematous to being frankly cold. Id consultation is requested to help manage what appears to be an overlapping collection of very significant problems revolving around hypotension, fever and multiorgan failure. PAST MEDICAL HISTORY: 1. Left brain CVA with right hemiparesis and aphasia. 2. History of GI bleed with multiple abdominal surgeries 2016 in [place]. 3. Hyperlipidemia. As an outpatient, the patient has reported to take basically only aspirin. SOCIAL HISTORY: The patient is from [place]. He is a nonsmoker and nondrinker except for occasional beer. The family is not actually aware of what his occupation was in [place] but he has certainly been disabled the last nine years since his stroke. FAMILY HISTORY: Positive for latent tuberculosis in a daughter. REVIEW OF SYSTEMS: Cannot be obtained as the patient is intubated and sedated, though we get as much information as we could from many family members who are with him in the room. It is worth noting that these are not the family members he lived with in [place], but rather are some other branch of his family so they are not as familiar with him as they might otherwise be. PHYSICAL EXAMINATION: Reveals a critically ill gentleman lying intubated and sedated in the ICU. Even at this moment, his temperature is 39.4, pulse 116, respiratory rate 28, blood pressure 102/53. He is saturating 94% on 60% FiO2 and appears critically ill. The patient flutters his eyes when his name is called or when he is stimulated but in no other way does he interact. Examination of the head reveals no evidence of trauma. No obvious facial droop is seen though it is difficult to assess since he is intubated and sedated. His eyes are without conjunctivitis. He does have pretty significant scleral icterus. His nose is normal. Oral endotracheal tube. Orogastric tube in good position. I do not see bloody secretions in the oral gastric tube. His peripheral and central IV lines are in good position without evidence of infection. His neck is without obvious adenopathy and is not stiff. His lungs are notable for a few crackles at the left base but not terribly abnormal. There is very little in the way of secretions in the endotracheal tube according to the nurse. Cardiac tones: Regular rate and rhythm but somewhat distant and very tachycardic. Pulse 115-120. Abdomen is slightly distended. No focal masses or tenderness is appreciated. Does not have ascites. He does have a Lisa catheter with almost no urine output. Penis and scrotum appear normal. His right lower extremity is relatively normal-appearing to about the knee but below the knee there is considerable swelling in the right lower extremity and also as one approaches the ankle, the foot and ankle actually are cold. It has a purplish mottled appearance consistent with an ischemic foot. There is a report that someone was able to Doppler a pulse in that right foot and ankle today but certainly one cannot palpate and there is certainly no capillary refill whatsoever. The left foot is also a bit swollen but to a much lesser degree and it is not cold and does appear to be perfused. Neurologically we cannot assess this intubated sedated patient. He has no evidence of synovitis. No evidence of skin breakdown or cellulitis and no other obvious abnormalities. LABORATORY STUDIES: Include a white count came in at 18,000, has now climbed to 24,000. He has a very profound left shift with 19% bands and also scattered metamyelocytes and nucleated red cells. His creatinine is 3.89. Lactic acid is currently 8, which is bad but improved over 21 when he came in two days ago. A procalcitonin is greater than 80. LFTs notable for an ALT of 1203, AST 951. Urinalysis: 6-10 white cells. Blood cultures: Since admission we have six bottles, all negative, all about 24 hours old. A MRSA screen has already been done and is negative. The sputum was unimpressive. A few polys and urine is negative. IMAGING: Includes a chest, abdomen and pelvis CT of greatest importance and that was done during his first few hours here in the hospital. It shows no intra-abdominal or intrathoracic hematoma. There is some concentric wall thickening of the bladder which could represent cystitis or bladder malignancy and a small right upper lobe nodule is seen in the lungs. Otherwise the chest portion of the CT is pretty unremarkable except for some possible atelectasis and the abdomen is likewise relatively normal except for some calcified gallstones. A follow up chest x-ray showed more infiltrate in the left raising the possibility of a left lower lobe pneumonia, and a further ultrasound of the right upper quadrant done yesterday morning shows no cholecystitis or abnormalities. The chest x-ray continues to show bibasilar infiltrates, atelectasis versus pneumonia today. IMPRESSION: This is an incredibly sick 65-year-old gentleman with underlying cerebrovascular disease and a history of gastrointestinal bleed. He presented here two days ago with what sounds like more gastrointestinal bleeding which had been accelerating perhaps in the days leading up to admission. There was also an interesting history of a recent respiratory tract infection which seems not to have ever left him. Shortly after admission, he was found to be in shock and respiratory failure requiring intubation and high-dose vasopressors. At this point, he has ventilator dependent respiratory failure, renal failure, severe hepatic injury and gastrointestinal bleed of unknown source and her right foot which is cold. By any criteria, the patient has multiorgan system failure and also has profound septic shock in addition to his many other problems. The source of this septic shock is unclear to me at this point, as his chest x-ray does not look all that bad, especially with respect to the recent CT, and his sputum is fairly bland. More likely, it seems as an intra-abdominal source of infection or perhaps just shock and apparent septic shock due to the large amount of tissue at risk in his right lower extremity which is frankly ischemic at this point. The patient has been treated with meropenem. The recent guidelines for treatment of septic shock suggest treating with two gram-negative agents until organisms identified. In addition I am a little concerned that we could be missing MRSA or a resistant Enterococcus or something else in this patient with refractory shock, so I think we should broaden our antibiotics a little bit even as we explore other options to help this gentleman. RECOMMENDATIONS: 1. I would add linezolid 600 mg IV q.12 with close followup on the platelets. 2. I would add renally adjusted doses of levofloxacin. 3. I would continue with the renally adjusted doses of meropenem. 4. I think this patient will likely not survive this admission and I do not think he has any chance whatsoever unless we address his ischemic right lower extremity. I have directly spoken this afternoon to the attending, Dr. Mendez Gabriel, about the need to pursue general surgery or vascular surgery evaluation of his right lower extremity as soon as possible for possible revascularization and/or amputation. 5. The resident, who speaks fluent [place], and myself have attempted to convey to the patient's large extended family the absolutely critical nature of his current status and the fact that it is highly likely he will not survive this admission no matter how aggressive our efforts are.
--- NOTE | 2016-11-14 16:38 | ABG ---
DateTimeAnalyzed 16:34:00 -_ pH ____7.263 - pCO2 ___36.3__ -mmHg pO2 ___35.7__ -mmHg HCO3- ___15.9__ -mmol/L ABE ___-9.9__ -mmol/L tHb ____8.2__ -g/dL O2Hb ___54.9__ -% COHb ____0.9__ -% MetHb ____1.2__ -% sO2 ___56.1__ -% FIO2 ___60.0__ -% PRVC 400 - PEEP ___12.0__ -cmH2O Set_RR ___16.0__ -b/min Vt __431.0__ -L Drawn By jmw - Date/Time Notified____ 16:37:00 -_ Spontaneous_RR ___21.0__ -b/min Oxygen Device 1 VENTILATOR - Notified By JMW - Notified Whom _DR LISY - B 760 -mmHg tO2 ____6.4__ -Vol% Herve test N/A -
[2016-11-14] MEDS ORDERED: DOBUTamine 500 mg/250 D5W 500,000 MCG in IV Premix 1 EACH IV SCH (16:49)
[2016-11-14] MEDS ORDERED: DOBUTamine 500 mg/250 mL D5W Premix IV ONE (16:54)
[2016-11-14] MEDS ORDERED: levoFLOXacin Inj 750 MG in IV Premix 1 EACH IV SCH (17:00)
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
[2016-11-14] MEDS: Vasopressin Inj 20 UNIT in 0.9% Sodium Chloride 100 ML IV SCH (17:24)
[2016-11-14] MEDS ORDERED: Ceftaroline Inj 600 MG in Dextrose 5% 250 ML IV SCH (17:30)
--- NOTE | 2016-11-14 17:53 | NUR ---
Temp 39.4, remains tachycardic/sinus, no ectopy noted. BP 90s/50s on 0.55mcg/kg/min Levophed, unchanged throughout the shift. NBP cuff pressures do not correlate with arterial line pressures. D50 given X1 dose for hypoglycemia, BG 53; BGs running low, checked every 2 hours. Abd distended/round, firm; UAP 18. No bowel tones auscultated, no stool, no flatus noted. OGT drained scant amount light green-yellow fluid. UOP 90ml/12 hours, dark adam urine. Urine sent per orders. Respiratory swab sent. Intermittent agitation resolved with bolus' fentanyl. Precedex infusing at 0.7 mcg. Remains on Protonix gtt. No S&S of active bleeding. LE doppler study attempted. Supportive family at bedside, updated by several physicians throughout the day. Surgery consulted this afternoon. To OR at 1735.
--- NOTE | 2016-11-14 19:04 | PCM.ANEP1 ---
Post Anesthesia Phase 1 PACU Phase 1 Assessment Date of Service: Nov 13, 2016 Vital Signs Vital Signs Date Time Temp Pulse Resp B/P Pulse Ox O2 Delivery O2 Flow Rate FiO2 11/14/16 17:11 113 104/51 99 60 11/14/16 16:00 39.4 118 29 90/47 Mechanical Ventilator 11/14/16 13:07 116 102/53 94 60 11/14/16 12:00 39.4 116 28 101/51 98 Mechanical Ventilator Anesthetic Administered: GA Level of Alertness: Drowsy, not talking LEON's with Equal Strength: No Pain: No Nausea or Vomiting: No Oxygen Delivery: Mechanical Ventilator Lungs: Clear to Auscultation, Normal Air Movement Summary Intubated, sedated, gtts continued. BP: 100/50 HR: 113 Sp02: 96% RR: 18 controlled T 37.9 (ax) Lloyd Coughlin MD Nov 14, 2016 19:04
--- NOTE | 2016-11-14 19:06 | PCM.ANEP2 ---
Post Anesthesia Evaluation ASA/CMS Post Anesthesia VS in Patient's Normal Range?: No (still requiring vasopressors) Resp Stable; Airway Patent?: Yes (intubated, ventilated) CV Function & Hydration Stable: Yes Mental Status Recovered?: No (sedated) Pain control Satisfactory?: Yes N/V Control Satisfactory?: Yes Lloyd Coughlin MD Nov 14, 2016 19:06
[2016-11-14] MEDS: Insulin Human REGular 100 Units/100 mL NS IV SCH ×2 (19:10)
--- NOTE | 2016-11-14 19:39 | NUR ---
1930 I was called to place a dressing on a dialysis catheter after being placed by Dr. Grant. A CHG dressing is applied and the catheter ends are enclosed in a gauze wrap. Ant Merida RN
[2016-11-14 20:29] LABS: Mean Corpuscular Hemoglobin 21.5 pg (27.0-35.0); Mean Corpuscular Volume 75.9 fL (81-100); Platelet Count 81 bil/L (150-400)
[2016-11-14 20:34] LABS: INR 2.55 ratio
[2016-11-14 20:52] LABS: BASOPHILS % (AUTO) 0 % (0-3); EOSINOPHILS % (AUTO) 0 % (0-5); MONOCYTES % (AUTO) 2 % (4-12); NEUTROPHILS % (AUTO) 69 % (40-74)
[2016-11-14] MEDS: 0.9% Sodium Chloride 1,000 ML IV SCH (20:57)
--- NOTE | 2016-11-14 21:28 | CONS ---
[address] [address] CONSULTATION REPORT PATIENT: RAMA NAVARRO : 1950 MR#: [id number] ADMIT: 11/12/2016 JOB ID: [id number] DATE OF SERVICE: 11/14/2016 CHIEF COMPLAINT/IDENTIFICATION: I have been asked to see this critically ill man by Dr. Gabriel, both for concern regarding ischemia of the right lower extremity and for possible intra-abdominal sepsis. HISTORY OF PRESENT ILLNESS: The patient was admitted roughly 48 hours ago with a history of one month poor appetite, previous history of GI bleeding in 2016, and severe anemia and hypotension. He became critically ill and his initial blood gas demonstrated a pH of 7.1, and a base deficit of 17.5. He was seen in consultation by GI and Cardiology and subsequently by Nephrology, managed by the hospitalist service and the ICU service. Over the course of the day, he has had increased pressor requirements and was noted to have a dusky right foot, particularly distal to the forefoot. I am asked to see him. PAST MEDICAL HISTORY: History is primarily obtained from the chart and is fairly limited other than he has some chronic aphasia and right-sided weakness secondary to a stroke several years ago, known hyperlipidemia, and has had previous abdominal surgery based on his physical examination. MEDICATIONS: See admission history and physical and med reconciliation. He is currently on two pressors in the ICU. He has no known allergies. SOCIAL HISTORY: The patient is a Stateless speaker, as is his . They are visiting family. I have not been able to speak with the patient as he is intubated and noncommunicative, but I have spoken to his , and several family members including three daughters and a [id number] with the benefit of a financial sales manager. REVIEW OF SYSTEMS: Echocardiogram demonstrated an ejection fraction of 55% to 60% with some basal inferior wall akinesis, a dilated right ventricle with reduced right ventricular systolic function and no valve issues, as I can ascertain from the reading. He is seen in ICU, intubated. His temperatures is recorded at 39.4, his pulse is in the one-teens, his blood pressure is 90/47. He is on a mechanical ventilator. His sclerae are clear. His abdomen is distended and firm. He has two lower midline incisional scars plus a right lower quadrant incision. His bladder pressures measured at 18. He has palpable groin pulses that are present and thready. His extremities are clamped down and cool and he does have venous congestion greater on the right than on the left foot, involving his toes and his forefoot. LABORATORY DATA: His sodium is 136, his potassium is 6.4, chloride is 97, and his bicarbonate is 15. Creatinine is up to 3.89. His BUN is 52, lactic acid is 8.4. As of this morning, his bilirubin is rising to 8.5. His transaminases are coming down from a previous peak of 1587, 1267, to 957, and 1203. His alkaline phosphatase is normal. Albumin is 2.6. His white count this morning is 23.6. His hematocrit is 30 after blood transfusion. Platelet count is 131. CT scan from November 12, roughly 48 hours ago, demonstrates nothing terribly ominous,. but of significance is that he has minimal atherosclerosis in his abdominal aorta. IMPRESSION AND PLAN: This is a critically ill, 65-year-old man. I believe that any peripheral ischemia of his feet are most likely related to his severe hypotension and requirement of pressors. His abdomen is tense, and given his prodrome of a fairly lengthy period of severe hypotension and anemia upon presentation and overall picture of shock liver. I suspect that he has an intra-abdominal catastrophe either brewing or it is already a fait accompli. My recommendation would be go right to the operating room rather than pursue any further imaging given the risk of delay and/or IV contrast injuring him further. My concern is that he does have areas of ischemic small bowel that may be nearing impending perforation, if not already leaking into his abdomen, as well as my concern that he is developing abdominal compartment syndrome. I have had discussion with his and his three daughters and his one [id number] regarding that he is critically ill and recommending that we go to the operating room for planned exploratory laparotomy and to leave his abdomen open with resection of bowel as needed. I have told him that I believe he will without surgery but that even with surgery, he has a high risk of mortality. I have also cautioned them that we may get in there and find that there is nothing to do for him, either due to ischemic disease or due to underlying malignancy. They feel that it is in his best interest and in keeping with his wishes to proceed with surgery, and I will therefore take him to the OR today. MISA
[2016-11-14] MEDS ORDERED: 0.9% Sodium Chloride 250 ML ONE (21:50)
--- NOTE | 2016-11-14 22:09 | ABG ---
DateTimeAnalyzed 22:04:00 -_ pH ____7.093 - 7.350 7.450 pCO2 ___44.6__ -mmHg 35.0 45.0 pO2 151 -mmHg 69.0 116 HCO3- ___13.0__ -mmol/L 22.0 26.0 ABE __-15.4__ -mmol/L -2.0 2.0 tHb ____7.7__ -g/dL O2Hb ___96.3__ -% COHb ____0.8__ -% MetHb ____1.0__ -% sO2 ___98.1__ -% 25.0 FIO2 ___80.0__ -% Drawn By LT - Date/Time Notified____ 22:08:00 -_ Notified By LT - Notified Whom DR FUIMAONO - B 762 -mmHg tO2 ___10.7__ -Vol% OrderingPhysicianInitials mf - Herve test N/A -
[2016-11-14] MEDS: 0.9% Sodium Chloride 500 ML IV PRN (23:32)
[2016-11-14 23:51] LABS: Mean Corpuscular Hemoglobin 21.6 pg (27.0-35.0); Mean Corpuscular Volume 77.8 fL (81-100); Platelet Count 83 bil/L (150-400)
[2016-11-14 23:52] LABS: INR 2.22 ratio
[2016-11-15] VITALS (18 sets, daily range): BP systolic 91–119; BP diastolic 44–63; PULSE 91–117; RESP 16–38; O2SAT 88–96
[2016-11-15] LABS: Magnesium 1.9 mg/dL (1.6-2.6); Phosphorus 9.3 mg/dL (2.5-4.9)
[2016-11-15] MEDS: Norepineph 8,000 mCg/250 mL NS 8,000 MCG in IV Premix 1 EACH IV SCH ×6 (00:50→22:08)
[2016-11-15] MEDS: Vasopressin Inj 20 UNIT in 0.9% Sodium Chloride 100 ML IV SCH ×2 (00:50→14:46)
[2016-11-15] MEDS ORDERED: Calcium GLUCO 10% (Gm) Inj 2 GM in 0.9% Sodium Chloride 100 ML IV ONE ×2 (00:50→07:30)
[2016-11-15] MEDS: 0.9% Sodium Chloride 1,000 ML IV SCH ×5 (00:51→20:30)
[2016-11-15] MEDS: Chlorhexidine 0.12% 15 mL Oral Solution MT SCH ×6 (00:51→19:46)
[2016-11-15] MEDS ORDERED: Insulin Human REGular 300 Unit/3 mL Inj IV ONE (00:55)
[2016-11-15 01:05] LABS: NEUTROPHILS % (AUTO) 29 % (40-74)
[2016-11-15 01:06] LABS: BASOPHILS % (AUTO) 0 % (0-3); EOSINOPHILS % (AUTO) 0 % (0-5); MONOCYTES % (AUTO) 5 % (4-12)
--- NOTE | 2016-11-15 01:48 | OP ---
[address] [address] OPERATIVE REPORT PATIENT: RAMA NAVARRO : 1950 MR#: [id number] ADMIT: 11/12/2016 JOB ID: [id number] DATE OF SURGERY: 11/14/2016 PREOPERATIVE DIAGNOSIS(ES): 1. Possible bowel ischemia. 2. Intra-abdominal compartment syndrome. POSTOPERATIVE DIAGNOSIS(ES): 1. Small bowel ischemia with perforation. 2. Intra-abdominal compartment syndrome. PROCEDURE: Exploratory laparotomy, small bowel resection, washout and ABThera placement. SURGEON: Kunal Grant MD. SUPERVISOR PLATING AND POINT ASSEMBLY: CINDY Rodriguez. INDICATION: A 65-year-old man critically ill with concerns regarding intra-abdominal catastrophe, he is brought to the operating room after informed consent. FINDINGS: 1. after school program assistant was medically necessary for this procedure. 2. The patient had leakage from his small bowel within his abdominal cavity that had been contained in pockets. The majority of the small bowel was necrotic as described below. 3. The small bowel was resected without creation of ostomy or anastomosis, the abdomen was washed out, and we left the abdomen open. The patient will need to return to the operating room for another surgery within the next 48-96 hours. PROCEDURE: The patient was brought to the operating room from the ICU with informed consent. He was transferred to the operating room table and his abdomen was prepped and draped in sterile fashion after hooking up all his monitors. SCOAP protocol was followed. He was on therapeutic antibiotics. He had just received some Levaquin prior to transfer. Surgical time-out was performed. We began with a long midline incision. I entered the abdomen in the upper abdomen where he had not had previous surgery. We entered the free abdomen. There was cloudy ascitic fluid. We continued the incision down further. He had some midline adhesions that were taken down. We finished our midline incision and the abdomen was wide open. We suctioned out what initially was just murky-looking ascites, but there were pockets that appeared to contain renata infected fluid consistent with small bowel leakage. He had a fair amount of adhesions in the upper abdomen and down in the pelvis, and we took down as many as we needed. It was fairly clear at this point that he had a significant amount of small intestine that was ischemic, some leathery, some that had clearly leaked fluid. We suctioned out as much of the fluid as we could. I took down interloop adhesions and began freeing up the small intestine. My initial impression at this point was that his entire small intestine was ischemic and not salvageable, but as we got some of the adhesions taken down it became clear that his proximal small intestine was good for at least two feet. I took down further adhesions and what I could see was that he had at least three feet of small intestine from the ligament of Treitz down to the area of ischemia. I took the JAY stapler and divided the small intestine near the transition point, making sure that the staple line was through and across an area that was vascularized. I then used the Impact to take down the small bowel mesentery, and as I got down toward the ileum we were able to mobilize the terminal ileum and see that there was roughly six inches of viable terminal ileum. I did take a scalpel at this point and ascertained that anywhere distal to this there was no bleeding when I made a serosal incision, and I went distally on ileum making serosal incisions until I did get bleeding. I then fired the JAY stapler across this area and then took down the rest of the mesentery with the Impact device. Specimen was handed off the table. We did encounter two areas where the small bowel had been perforated with liquid small bowel contents that had been contained in the adhesions. I now inspected the colon. The colon was all viable, though perfusion was somewhat compromised. I did not appreciate any large masses and there was no sign of carcinomatosis. I tried to get a good look at the liver, but the greater omentum was stuck up over this, but we were able to get a hand up over the dome of the liver and the surface did not have any nodularity suggesting metastatic disease. I did not take down further adhesions to get at the stomach to palpate it or the nasogastric tube, but it was clear that we had eliminated the source of enteric spill. I now proceeded to irrigate out the abdomen with several pitchers of warm saline and ascertained that hemostasis was good and there was no further ongoing leak. I now decided to leave the abdomen open using the ABThera dressing and not mature any ostomies as the patient remained critically ill. I washed out the abdomen again, placed the ABThera dressing in a standard fashion and then hooked it up to the suction. Suction held. The patient was further undraped, and at this point remained hemodynamically stable. We had planned to place a dialysis access catheter, but we did not have the supplies available through [facility] in the operating room, so we transferred him back to the ICU, where I will perform that procedure separately. MISA
[2016-11-15] MEDS: 0.9% Sodium Chloride 500 ML IV PRN (01:50)
--- NOTE | 2016-11-15 01:50 | OP ---
[address] [address] OPERATIVE REPORT PATIENT: RAMA NAVARRO : 1950 MR#: [id number] ADMIT: 11/12/2016 JOB ID: [id number] DATE OF SURGERY: 11/14/2016 PREOPERATIVE DIAGNOSIS(ES): Acute kidney injury. POSTOPERATIVE DIAGNOSIS(ES): Acute kidney injury. PROCEDURE: Left femoral venous dialysis catheter. SURGEON: Kunal Grant MD. INDICATIONS: A critically ill male. I have been asked to place dialysis access by the hospitalist service. FINDINGS: Catheter placed without difficulty. PROCEDURE: A surgical time-out was performed. The left groin was prepped and draped in sterile fashion. I cannulated the left femoral vein with a seeker needle and passed the wire into the vein. I made a skin prabha on the wire, then passed the dilator over the wire, removed the dilator, and then placed the previously flushed dialysis catheter. The wire was removed. Blood withdrew from the catheter easily and I flushed the catheter. Catheter was secured with nylon suture and secured with a dry dressing. The patient tolerated the procedure well.
[2016-11-15] MEDS: Sodium Bicarb 8.4% Inj 150 MEQ in Water Sterile for Injection 1,000 ML IV SCH ×3 (02:41→08:54)
--- NOTE | 2016-11-15 03:27 | NUR ---
labs/abgs/fluids/pressors/blood products pt received from or at change of shift at ~1900, left femoral dialysis cath placed per Dr. Grant, dressing placed per ivt, right femoral a line intact, bp initially 80's/35-40's, ivf per md orders, ns boluses given time three then ns at 200ml/hr, levophed gtt as high as o.8mcg/kg/min currently at 0.6mcg/kg/min, vasopressin continued at 0.03units per minute, see ccu flow sheet for bp's, map kept>65, surgeon and hospitalist aware of change of shift lab results, 2 units of ffp given, see meds per oct for high potassium and low calcium, rn told dialysis would occur in am, labs redrawn post ffp and meds, hospitalist aware of results, see med orders, surgeon aware of output of mostly sang output per wound vac--also aware of h/h and inr results, 2 more units of ffp given, 2 units of blood infusing, pt taylor blood products well, signed consent on chart, labs to be drawn again this am post blood products, .60 fio2 per vent, difficult to get sats, pt cool t/o, fio2 increased to .80 per rt, abg's done, md aware of abg results, bicarb gtt increased first to 100ml/hr then 200ml/hr, resp rate = 16/16, sx minimal whitish sputum per ett, minimal oral secretions also, ls- sl course decreased in bases, pt sedated on fentanyl gtt at 25-50mcg/hr, precedex gtt at 0.7mcg/kg/hr, pt does not appear to respond to pain tonight, md aware pt has minimal gag reflex, pupils 3mm bilaterally, react to light, abthera wound vac dressing intact, midline abd incision, see ccu flow sheet for output, aware of output, no bt's, no bm, ogt to lis, placement =wnl, protonix gtt infusing, right foot still purple tinted and toes purple, family feels it is better then yesterday, no pulses per doppler, left foot pulses per doppler, 3-5ml uop per f/c intermittently per hour, left picc intact, family updated per md during evening portion of shift, see ccu flow sheet, plan:support bp, monitor and treat lab results,
--- NOTE | 2016-11-15 04:42 | ABG ---
DateTimeAnalyzed 04:37:00 -_ pH ____7.088 - 7.350 7.450 pCO2 ___50.6__ -mmHg 35.0 45.0 pO2 103 -mmHg 69.0 116 HCO3- ___14.6__ -mmol/L 22.0 26.0 ABE __-14.4__ -mmol/L -2.0 2.0 tHb ____9.2__ -g/dL O2Hb ___94.7__ -% COHb ____1.1__ -% MetHb ____1.0__ -% sO2 ___96.7__ -% 25.0 FIO2 ___80.0__ -% Drawn By LT - Date/Time Notified____ 04:41:00 -_ Notified By LT - Notified Whom ___DR. FUIMAONO - B 761 -mmHg tO2 ___12.4__ -Vol% Herve test N/A -
[2016-11-15] MEDS: Dexmedetomidine 400 mCg/100 mL 400 MCG in IV Premix 1 EACH IV SCH (05:10)
[2016-11-15 05:50] LABS: Mean Corpuscular Volume 78.9 fL (81-100); Platelet Count 65 bil/L (150-400)
[2016-11-15 06:00] LABS: INR 2.04 ratio
[2016-11-15] MEDS: Pantoprazole 8 mg/Hr Infusion IV SCH ×4 (06:01→16:30)
[2016-11-15 06:22] LABS: BASOPHILS % (AUTO) 0 % (0-3); EOSINOPHILS % (AUTO) 0 % (0-5); MONOCYTES % (AUTO) 8 % (4-12); NEUTROPHILS % (AUTO) 78 % (40-74)
--- NOTE | 2016-11-15 06:30 | NUR ---
aníbal ashley md paged with am lab results, see orders on chart, will pass labs on to day shift rn Addendum: 11/15/16 at 0651 by NAVEEN JENKINS RN orders faxed to pharmacy, still waiting for orders to by put in computer, day shift rn aware of orders to be done,
[2016-11-15] MEDS ORDERED: Insulin Human REGular-Omnicell 100 Unit/mL IV ONE (07:30)
--- NOTE | 2016-11-15 07:30 | PCM.PNMED ---
Subjective Date of Service Nov 15, 2016 Subjective 65-year-old man with past history of L MCA CVA presented on 11/12 with acute blood loss anemia, acute respiratory failure with hypoxia, metabolic acidosis, myocardial infarction and circulatory shock. He has subsequently developed oliguric renal failure, acute infectious process likely pneumonia, LFT elevations. Taken to the OR on 11/14 with near complete small bowel resection due to ischemia. Patient remains sedated on the ventilator. Severe metabolic acidosis. Minimal urine output. Exam Vital Signs Vital Sign - Last Date Time Temp Pulse Resp B/P Pulse Ox O2 Delivery O2 Flow Rate FiO2 11/15/16 04:57 36.8 105 16 113/63 11/15/16 04:46 91 80 11/15/16 04:00 Ventilator 11/12/16 11:49 15 Intake and Output 11/14/16 11/14/16 11/15/16 Cumulative From/Thru 15:00 23:00 07:00 11/12/16 07:39 - 11/15/16 05:43 Intake Total 4653 ml 25207 ml 78898 ml Output Total 140 ml 1299 ml 3212 ml Balance 4513 ml 9084 ml 62280 ml Intake Oral 180 ml 180 ml IV Total 4262 ml 9164 ml 77852 ml Packed Cells 610 ml 1230 ml FFP 211 ml 609 ml 820 ml Tube Irrigant 80 ml Output Urine Total 90 ml 24 ml 612 ml Gastric Drainage Total 0 ml 150 ml 1025 ml Drainage Total 1125 ml 1125 ml Estimated Blood Loss 50 ml 50 ml Other 400 ml # Bowel Movements 0 0 Exam General: Generally healthy-appearing, sedated on ventilator HEENT: sclerae slightly icteric Neck: 5 cm JVD Chest: Coarse ventilator breath sounds, Generally clear to auscultation; PICC line Cardiac: Tachycardic S1S2, no murmur appreciated Abdomen: BS absent, midline laparotomy scar with wound VAC; Lisa catheter; right groin arterial line Extremities: 2+ edema on right leg, trace on left; chronic asymmetry; right foot cold without signs of infarction Neuro: Sedated, right-sided upper extremity contraction, hyper reflexes on right upper and lower IVs and Medications Medications Reviewed: Medications were reviewed in detail Medications Norepinephrine plus vasopressin Bicarbonate infusion and normal saline Meropenem, levofloxacin, ceftaroline Lab and Diagnostics Fractional excretion of sodium 0.35% Procalcitonin 80.2 LFTs: Total bili 8.5, AST 1945, ALT 1234 INR 2.04 (increased from 1.32); PT 22.2 (previously 14.2); fibrinogen 211 DateTimeAnalyzed 04:37:00 -_ pH ____7.088 - 7.350 7.450 pCO2 ___50.6__ -mmHg 35.0 45.0 pO2 103 -mmHg 69.0 116 HCO3- ___14.6__ -mmol/L 22.0 26.0 sO2 ___96.7__ -% 25.0 FIO2 ___80.0__ -% Rate equals 16 Result Diagram: 11/15/16 0530 11/15/16 0530 Microbiology 11/13 UA 6-10 wbc, hematuria. No bacteria. MRSA nasal swab negative Sputum culture pending Strep pneumo antigen negative Viral respiratory panel negative Blood cultures 11/13 no growth X-Rays, CTs and MRIs X-RAY CHEST ONE VIEW, PORTABLE IMPRESSION: Bibasilar atelectasis versus aspiration or pneumonia. Correlate clinically. Dictated by: Mendez JOVEL Interpreted: Racehl Martinez MD on 11/14/2016 at 9:01 X-RAY CHEST ONE VIEW, PORTABLE Lungs and pleura: No pleural effusions or pneumothorax. Evaluation limited due to patient rotation. There are a few linear medial left retrocardiac opacities likely representing atelectasis. IMPRESSION: 1. Linear left retrocardiac opacities likely represent atelectasis. Dictated by: Raudel Chester M.D. on 11/12/2016 at 11:06 CT CHEST, ABDOMEN AND PELVIS WITHOUT CONTRAST IMPRESSION: 1. No intra-abdominal or intrathoracic hematoma identified. 2. Marked irregular concentric wall thickening of the bladder with heterogeneous bladder contents and partial calcification of the bladder wall. The findings may represent sequelae of cystitis or bladder mass. Recommend correlation with clinical history and cystoscopy if indicated. 3. Small 3-4 mm right upper lobe nodule. A followup study may be performed in 12 months to demonstrate stability if indicated. Dictated by: Raudel Chester M.D. on 11/12/2016 at 12:37 US ABDOMEN, LIMITED IMPRESSION: Limited examination demonstrating no evidence of cholecystitis. Dictated by: Camilla Klein M.D. on 11/13/2016 at 10:39 . 12-lead ECG EKG per admission note: Sinus tach 106. Normal conduction intervals. [address] depression V2-V6. Q wave III, but not II, aVF. . Cardiac Echo Impressions Echocardiogram Interpretation Summary: Normal sinus rhythm. Normal LV size, wall thickness;l there is basal inferior wall akinesis; otherwise normal wall motion. LV is D shaped in both systole and diastole c/w RV pressure overload. Estimated PA systolic pressure is 40 mm Hg assuming RA pressure of 10 mm Hg. RV is severely dilated with severely reduced RV function. No prior study is available for comparison. Reading Physician:05:15 PM . Assessment & Plan 65-year-old man with atherosclerotic disease presents with acute GI blood loss anemia, acute respiratory failure with hypoxia, metabolic acidosis, NSTEMI and acute oliguric kidney injury. # Cardiac: Hemodynamics & Rhythm - blood pressure 80/53 on admission. NSTEMI related to hemodynamic shock and anemia. Subsequently developed fluid overload insetting of oliguria. CVP approximately 20 mmHg. cardiac echo reveals right heart failure with septal impingement but otherwise reasonable LV function. Progressive septic shock due to ischemic bowel. ScvO2 is low. No significant dysrhythmia - Fluid management per nephrology service; no aggressive IV fluids for lactic acidosis insetting of an uric renal failure and fluid overload - Norepinephrine and vasopressin; titrate as tolerated - Dobutamine trial per ICU service - Telemetry monitoring - Maintain MAP greater than 65 mmHg # Renal - acute kidney injury with serum creatinine 1.88 on admission. Now in oliguric renal failure. FENa is low, but clinical picture seems likely ATN due to GI blood loss and hypotension. Temporary hemodialysis catheter placed 11/14. Hyperkalemia and severe metabolic acidosis. - Dialysis per nephrology information security consultant - Daily BMP - Renal medication dosing # Respiratory function - Acute respiratory failure with hypoxia. He was initially intubated due to inadequate ventilatory response to acute metabolic acidosis. Also acute hypoxemia likely due to severe anemia. Initial chest x- ray unremarkable. Chest CT with no intrinsic pulmonary pathology at time of admission. Subsequent chest x-ray suggests left lower lobe infiltrate. Subsequently developed infectious picture related to ischemic bowel, although not clear the extent to which he has pneumonia.. - Ventilator bundle ordered - Vent management per ICU service # Lines, I/O's, fluids and electrolytes - hyperkalemia with potassium 5.8 on admission, progressive due to oliguric renal failure. Metabolic acidosis, acute. Initial Anion gap 34. - Repeat BMP today and daily. - Monitor and supplement electrolytes - Arterial line in right femoral; - Dialysis catheter left femoral - Intravenous catheter # Infectious disease status - fever to 39.0 on 11/13, fever curve now declining after 1600 hr 11/14. Marked leukocytosis. Started antibiotics on 11/13. Primary issue is sepsis to ischemic bowel. Tracheal secretions are mild. Checks x-ray on 11/14 appears to show left lower lobe infiltrate, loss of left diaphragm contour, with right perihilar interstitial pattern. Probable pneumonia, presenting less than 48 hours after hospitalized. Gallbladder unremarkable on ultrasound. Initial UA unremarkable. Primary focus is intestinal ischemia and perforation - Infectious disease consult: Currently on meropenem, levofloxacin, micafungin - Follow culture data: Sputum, repeat urine, blood - Daily chest x-ray - Daily CBC # Hematological - cute symptomatic anemia, GI blood loss. Stool guaiac positive but firm and impacted per emergency department physician. RBC indices indicate microcytic. Likely acute on chronic in nature. INR is mildly elevated 1.3 on admission, rising to 2.1 due to hepatic dysfunction and delusional effects. On admission 4 units PRBC administered with a rising hemoglobin to 9.2. Received further PRBC and FFP due to anemia and sanguinous wound exudate in perioperative setting on 11/15 - Acute GI bleeding orders: Peripheral IVs in central access - Monitor clinically for further blood loss; stool guaiac - Repeat H/H # GI, diabetes, and nutritional status - no signs of acute ongoing blood loss. LFTs were mildly abnormal, on admission but is now developed marked hyperbilirubinemia and transaminase elevations.. INR is slightly elevated. Unclear whether patient has cirrhosis, family denies significant alcohol history. Likely hepatic dysfunction secondary to right heart failure, sepsis. Following surgery he has a partially 3 foot of small bowel with 6 cm of terminal ileum. Surgery service expects to restore oral nutrition ability, if patient survives the perioperative period. - Nothing by mouth since 11/11; considering parenteral nutrition - IV Protonix for presumed upper GI bleeding - GI service consulted. Will consider endoscopy after patient hemodynamically stable. 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 - Monitor clinically - Sedation as needed # Pain status - no apparent pain issues # Venous thromboembolism prophylaxis: - Lower extremity Doppler was ordered, although anticoagulation does not seem to be a good option due to GI bleeding - Mechanical prophylaxis only in the setting of acute GI bleeding - Acute right leg swelling is chronic related to his past CVA. # Goals of care, palliative care consultation request. Communicate medical status to family with talent assistant. I have counseled them on critical status. - Admitted to inpatient status with expectation of care greater than 48 hours - Discussed with family who concur with aggressive care including the ME and intubation for short-term reversible medical issues. Disposition planning: Patient is currently admitted to the critical care unit with expectation of greater than 2 nights of inpatient care. GI Prophylaxis: Proton Pump Inhibitor VTE Prophylaxis: SCDs VTE Mechanical Devices: Intermittant Pneumatic CD Resuscitation Status: CPR: Attempt Resuscitation Time spent 45 minutes Will Gabriel MD Nov 15, 2016 07:29
[2016-11-15] MEDS ORDERED: Ceftaroline Inj 600 MG in Dextrose 5% 250 ML IV ONE (08:05)
[2016-11-15] MEDS: Propofol Inj 1,000,000 MCG in IV Premix 1 EACH IV SCH (08:15)
[2016-11-15] MEDS: Meropenem Inj 500 MG in 0.9% Sodium Chloride 50 ML IV SCH (08:16)
[2016-11-15] MEDS ORDERED: DEXTROSE 5% IV SCH ×2 (08:30→20:30)
[2016-11-15] MEDS ORDERED: CEFTAROLINE IV SCH ×2 (08:30→20:30)
[2016-11-15] MEDS ORDERED: Albumin 25% 100 ML IV SCH (09:00)
--- NOTE | 2016-11-15 09:08 | PROG NOTE ---
[address] [address] PROGRESS NOTE PATIENT: RAMA NAVARRO : 1950 MR#: [id number] ADMIT: 11/12/2016 JOB ID: [id number] DATE: 11/15/2016 INFECTIOUS DISEASE FOLLOW UP NOTE: REASON FOR FOLLOW UP: Infarcted small bowel with septic shock and ischemic right lower extremity. INTERVAL HISTORY: Recall that this is the 65-year-old gentleman we saw yesterday in consultation who was super critically ill with GI bleeding, a quiet abdomen and an ischemic right lower extremity. At the time we saw him, he was requiring high doses of vasopressor agents, extremely high doses of vasopressor agents, with ventilator dependent respiratory failure, renal failure and hepatic injury. We had broadened his antibiotics and recommended surgical evaluation. The surgical evaluation was subsequently done and on the basis of increased abdominal pressures and persistent lactic acidosis, Dr. Grant wisely decided to take the patient to the operating room. During the surgery last night, most of the small bowel was resected as it was nonviable. The patient was then returned to the ICU where he has remained hyper critically ill, requiring extraordinarily high doses of vasopressor agents, aggressive ventilatory support and impending dialysis. Obviously no history is available from this super critically ill patient, but we did discuss the case in detail with the ICU team as well as the nephrology technical support consultant and nursing. PHYSICAL EXAMINATION: Reveals a critically ill gentleman lying supine in his ICU bed. He has been afebrile for the past 24 hours. Currently temperature 36.8, pulse 100-110, regular rate and rhythm. The blood pressure is about 110 but this is being maintained on heroic doses of norepinephrine and vasopressin. Urine output is zero and he is saturating about 90% on 80% FiO2 and 12 of PEEP. Examination of the patient reveals, of course, he is unresponsive as he is deeply sedated but his eyes show deep scleral icterus. Oral endotracheal tube, orogastric tube in good position. No evident thrush from what can be seen around that. Neck: Without notable abnormalities. Lungs: With coarse breath sounds bilaterally. Cardiac tones: Regular rate and rhythm without appreciable murmur. The abdomen is open with a large Wound VAC filling the middle portion of the abdomen. The remainder of the abdomen is silent. A Lisa catheter is present. There is a left groin dialysis line which has just been placed and a right groin central line. The right extremity is slightly less ischemic than it was yesterday but still quite cool to the touch. There is report of a dopplerable dorsal pedal pulse, but certainly none can be felt. The left foot is also cool but not nearly so severe as the right. LABORATORIES: Include white count 28,000 which is actually up from yesterday with 9% bands, 16% nucleated red cells. Creatinine is 4.3, potassium 6.8, lactate remains around 8, which is where it was yesterday. Total bilirubin 13.2, which is rising. AST is just under 2000, ALT 1200, alk phos 105. Blood cultures negative. MRSA screen negative. Sputum negative. Urine culture is negative. IMAGING: Includes a chest x-ray from late yesterday which shows bibasilar infiltrates consistent with atelectasis. The abdominal imaging was reviewed yesterday in yesterday's note. IMPRESSION: This patient is super critically ill with ongoing lactic acidosis, complete renal failure, refractory septic shock and increasing O2 requirements on the ventilator. This apparently was precipitated by small-bowel infarction on the basis of underlying vascular disease and hypotension. It also appears he continues to have an ischemic right lower extremity. Given the multiplicity of problems and the depth of his septic shock and associated respiratory, renal and hepatic failure, survival would seem extremely unlikely at this point. RECOMMENDATIONS: 1. Will continue with meropenem and levofloxacin for combined gram-negative coverage at least for the next day or two until we have more data. 2. Will cancel the ceftaroline we had planned to add last night as MRSA no longer seems to be a reasonable possibility here. 3. Micafungin will be added as the patient had gross perforations of his small bowel and the possibility of a fungal involvement is quite high in this circumstance. 4. This case discussed in detail with the renal and ICU teams.
--- NOTE | 2016-11-15 09:21 | PCM.PNNEPH ---
Subjective Date of Service Nov 15, 2016 Subjective The events over the last 24 hours been reviewed and the case discussed at length with Dr. Grant from surgery. Despite an extensive small bowel resection patient remains quite critically ill. His abdomen is opened and packed. He remains ventilatory dependent and on several pressors and large amounts of bicarbonate and saline. In the last 24 hours he has had 7319 in and 340 and also of urine output. In the first 8 hours of today he has only had 24 mL's of urine. Currently his vent settings show an FiO2 of 80% and +12 of PEEP. His labs this morning showed a sodium of 137, potassium 6.8, chloride of 100 and bicarbonate of 13 BUN and creatinine were 51 of 4.3 respectively. His lactic acid is somewhat improved at 7.6. His albumin is 2.3 and once again his liver function studies have spiked. Most likely I feel some abnormality is function tests are probably multifactorial from shock. Exam Vital Signs Vital Sign - Last Date Time Temp Pulse Resp B/P Pulse Ox O2 Delivery O2 Flow Rate FiO2 11/15/16 09:04 102 106/54 96 80 11/15/16 08:00 36.8 16 Mechanical Ventilator 11/12/16 11:49 15 Intake and Output 11/14/16 11/14/16 11/15/16 Cumulative From/Thru 15:00 23:00 07:00 11/12/16 07:39 - 11/15/16 05:43 Intake Total 4653 ml 72363 ml 09500 ml Output Total 140 ml 1299 ml 3212 ml Balance 4513 ml 9084 ml 78461 ml Intake Oral 180 ml 180 ml IV Total 4262 ml 9164 ml 54665 ml Packed Cells 610 ml 1230 ml FFP 211 ml 609 ml 820 ml Tube Irrigant 80 ml Output Urine Total 90 ml 24 ml 612 ml Gastric Drainage Total 0 ml 150 ml 1025 ml Drainage Total 1125 ml 1125 ml Estimated Blood Loss 50 ml 50 ml Other 400 ml # Bowel Movements 0 0 Exam Patient is sedated and on a ventilator. HEENT examination is remarkable for pale sclerae and periorbital edema. Lungs showed a few scattered rhonchi but otherwise were clear. Heart was tachycardic. Abdomen: Limited abdominal exam was performed as the patient's abdomen is open and surgically packed and dressed. Extremities shows generalized edema throughout all 4 extremities and his distal digits are all cyanotic with minimal capillary refill. Lab and Diagnostics Result Diagram: 11/15/16 0530 11/15/16 0530 Microbiology 11/13 UA 6-10 wbc, hematuria. No bacteria. MRSA nasal swab negative Sputum culture pending Strep pneumo antigen negative Viral respiratory panel negative Blood cultures 11/13 no growth X-Rays, CTs and MRIs X-RAY CHEST ONE VIEW, PORTABLE IMPRESSION: Bibasilar atelectasis versus aspiration or pneumonia. Correlate clinically. Dictated by: Mendez Meléndez [facility] Interpreted: Rachel Martinez MD on 11/14/2016 at 9:01 X-RAY CHEST ONE VIEW, PORTABLE Lungs and pleura: No pleural effusions or pneumothorax. Evaluation limited due to patient rotation. There are a few linear medial left retrocardiac opacities likely representing atelectasis. IMPRESSION: 1. Linear left retrocardiac opacities likely represent atelectasis. Dictated by: Raudel Chester M.D. on 11/12/2016 at 11:06 CT CHEST, ABDOMEN AND PELVIS WITHOUT CONTRAST IMPRESSION: 1. No intra-abdominal or intrathoracic hematoma identified. 2. Marked irregular concentric wall thickening of the bladder with heterogeneous bladder contents and partial calcification of the bladder wall. The findings may represent sequelae of cystitis or bladder mass. Recommend correlation with clinical history and cystoscopy if indicated. 3. Small 3-4 mm right upper lobe nodule. A followup study may be performed in 12 months to demonstrate stability if indicated. Dictated by: Raudel Chester M.D. on 11/12/2016 at 12:37 US ABDOMEN, LIMITED IMPRESSION: Limited examination demonstrating no evidence of cholecystitis. Dictated by: Camilla Klein M.D. on 11/13/2016 at 10:39 . 12-lead ECG EKG per admission note: Sinus tach 106. Normal conduction intervals. [address] depression V2-V6. Q wave III, but not II, aVF. . Cardiac Echo Impressions Echocardiogram Interpretation Summary: Normal sinus rhythm. Normal LV size, wall thickness;l there is basal inferior wall akinesis; otherwise normal wall motion. LV is D shaped in both systole and diastole c/w RV pressure overload. Estimated PA systolic pressure is 40 mm Hg assuming RA pressure of 10 mm Hg. RV is severely dilated with severely reduced RV function. No prior study is available for comparison. Reading Physician:05:15 PM . Plan Impression Impression #1 acute tubular necrosis secondary to ischemic bowel with multisystem organ failure #2 hyperkalemia #3 metabolic acidosis Recommendations #1 I would like to stop all of his IV fluids right now and will proceed with dialysis. He was to be dialyzed on F-16 dialyzer for 3 hours, 2- 300 blood flow, 600 dialysate flow, 1 potassium bath with 40 bicarbonate, and he will be given 25 g of albumin at the start and repeat every hour total of 3 doses. We will attempt to take 1 or more liters of fluid based on his blood pressure. I have had long discussion via an park interpreter with the patient's family and have follow-up explained to them the poor prognosis. If we are unable to complete the dialysis treatment if she holds her breath can be done. Raul Marin DO Nov 15, 2016 09:21
[2016-11-15] MEDS: Micafungin Inj 150 MG in 0.9% Sodium Chloride 100 ML IV SCH (09:51)
[2016-11-15] MEDS: Albumin 25% 100 ML IV SCH ×2 (10:13→10:30)
--- NOTE | 2016-11-15 10:29 | NUR ---
Palliative care note D/A: New referral for PC services received today from Dr. Gabriel. Review of chart and case discussed in PC rounds. Note that pt is from [place] and is private pay at this time. Phone call to kalyn Jason and discuss need for [facility]. Pt is described as hemipalegic and aphasic, cared for at home by family. Family has noted that pt has communicated a desire to live. Pt with very recent removal of most of his small bowel which is felt to probably result in dumping syndrome. He also is currently receiving dialysis. Pt critically ill at this time, survival beyond acute care unknown at this point. PC awaiting arrival of spouse. Dr. Melgar to see pt/discuss with family. Bedside RN will notify PC when spouse arrives. Will involve diplomatic interpreter services. P: Palliative care to follow. Letha Skinner Addendum: 11/15/16 at 1247 by SHANIKA SKINNER SS Palliative care note [facility] D/A: Met with pt spouse, his dtr and grand dtr as well as diplomatic interpreter Ivy as well as Dr. Melgar. Discussed at length pt current status as well as his history leading up to current hospitalization as well as prognosis. Family notes that local family had not seen pt for 11 years. Family very grateful for visit and extremely saddened that pt has fallen ill when they have not seen him for so long. Family told today by Dr. Melgar that there is only about a 5 % chance that pt will be able to recover enough to discharge from the hospital. Family is processing information and will discuss with other family members in regards to pt wishes regarding code status. PC offered to discuss further with other family members, if desired. Family is aware that medical insurance is being pursued for pt. P: Palliative care to continue to follow. Letha OLIVARES, CCM
--- NOTE | 2016-11-15 10:33 | NUR ---
NUTRITION FOLLOW-UP: Assess: 65 YO Nauruan speaking male admitted for upper GI bleed. Pt currently requiring mechanical ventilation. Pt went to OR 11/14 and had near complete small bowel resection. He currently has wound vac on over open abdomen. Pt is also experiencing renal failure requiring dialysis. LFTs continue to rise. Received verbal order this am from surgery to start TPN. PMHX: CVA, possibly cognitive impairment-likely dementia. DIET: NPO. LABS: Reviewed. K 6.8, Bun 51, Loading Machine Operator Helper 51, Ca 6.3, t.bili 13.2, AST 1945, ALT 1234, Alb 2.3 MEDICATIONS: Precedex, Fentanyl, Pressor. GI: small bowel resection. SKIN: Wound vac over open abdomen ANTHROPOMETRICS: Wt: 97.7 kg, BMI 34.8 kg/m2, Admit wt: 87.3 kg, IBW: 64.5 kg. ESTIMATED NEEDS: VENT/BMI/DIALYSIS (based off admit wt) Calories: 7645-7590 kcal/day (20-22 kcal/kg BW) Protein: 95-115 g/day (1.5-1.8 g/kg IBW) NUTRITION DIAGNOSIS: 1) Inadequate oral intake related to decreased ability to consume sufficient energy as evidenced by NPO/Vent status. --PERSISTS 2) Altered GI function related to ischemia as evidence by need for bowel resection and TPN for nutrition support--PERSISTS INTERVENTION: 1) Received verbal order to start TPN today. Due to extremely elevated LFTs and reported poor PO intake prior to admit will start TPN low and without lipids. Recommend 150g Dex and 50g AA to provide 710 kcal and 50g pro (40% kcal and 50% pro needs). Will monitor tolerance closely. Pharmacy is aware of recommendations. MONITOR/EVALUATE: NPO/Vent status, GI, labs, TPN start, nutrition status. Follow per high nutrition risk guidelines.
--- NOTE | 2016-11-15 11:17 | PROG NOTE ---
[address] [address] PROGRESS NOTE PATIENT: RAMA NAVARRO : 1950 MR#: [id number] ADMIT: 11/12/2016 JOB ID: [id number] DATE: 11/15/2016 PULMONARY CRITICAL CARE PROGRESS NOTE: The patient is a 65-year-old man with prior history of stroke with right-sided hemiparesis, originally from [place], admitted to the hospital on November 13 with severe blood loss anemia from upper GI bleed, severe metabolic acidosis, respiratory failure, septic shock, and progressive renal failure. The patient was seen and evaluated with resident physician, Dr. Nicolasa Sarmiento. Please refer to her separate detailed note for additional information. INTERVAL HISTORY: The patient was taken to the operating room last night by Dr. Grant and was found to have significant small-bowel ischemia, as well as evidence of small bowel perforation. All of this was resected, and approximately 3 feet of small bowel, including terminal ileum, was left in place. He returned from the operating room on norepinephrine and vasopressin. He had a dialysis catheter placed and was started on dialysis this morning. REVIEW OF SYSTEMS: Unable to obtain. PHYSICAL EXAMINATION: Vital signs reviewed. Afebrile. FiO2 is 80% and PEEP is 12 cm currently. General: Intubated, sedated, unresponsive. Chest: Bilateral rhonchi. Abdomen: Open abdomen with wound VAC in place. Extremities: Bilateral lower extremities with right greater than left purplish discoloration and cold extremities with poor perfusion. According to nurses, pulses are not even dopplerable at this point. LABORATORIES: Reviewed. WBC is up to 28 from 22 yesterday. Hemoglobin had dropped to 6.8 overnight but was transfused back up to 9.9. Platelets are down to 65. Chemistry reviewed and notable for potassium up to 6.8, bicarb of 13. BUN and creatinine are up, too, with creatinine of 4.3. LFTs are stable, unchanged with bilirubin of 13. AST 1900, ALT 1200. Cultures: No new growth. Chest x-ray reviewed and showed some increased hilar and patchy bilateral infiltrates which could be ARDS or pulmonary edema. Arterial blood gas from this morning shows pH of 7.08, pCO2 of 50, pO2 of 103, and bicarb of 14.6. ASSESSMENT AND RECOMMENDATIONS: 1. Septic shock. 2. Acute hypoxic respiratory failure. 3. Ischemic bowel with perforation, status post resection and ileostomy November 14. 4. Acute renal failure - started on hemodialysis November 15. 5. Transaminitis due to shock liver. 6. Known prior right-sided stroke with weakness. 7. Upper gastrointestinal bleed with severe blood loss anemia - corrected. This 65-year-old man is critically ill with multiorgan failure that likely started as a result of upper gastrointestinal bleed with severe blood loss anemia, presenting with a hemoglobin of 4. He has, I believe, progressed with pulmonary, cardiac, renal, and hepatic dysfunction to name a few. He also has bowel ischemia likely from hypoperfusion and hypotension. He started on dialysis this morning, and I am hoping helping his acid/base status will help his overall condition. I increased his respiratory rate to correct the respiratory acidosis on the vent. He is on 80% FiO2 with PEEP of 12. If we cannot get the FiO2 down with dialysis, I think we should increase the PEEP further. With regards to vasopressors, he is currently on very high dose norepinephrine at 0.6 as well as vasopressin at 0.03. I tried to start dobutamine yesterday, but looks like this was held per Anesthesiology for the operating room. Once he finishes with dialysis, I would like to get a venous O2 sat and then start the dobutamine. We can recheck the venous O2 sat after that to see if there is any improvement. His central venous O2 sat yesterday when checked was 56% suggesting poor tissue perfusion, and I am hoping the dobutamine would improve cardiac output. The lower extremity duplex could not be done yesterday due to machine malfunction, and we are waiting on those results today. If he does have a deep venous thrombosis, surgery was okay with us starting anticoagulation with a heparin drip, but we would need to be cautious and watch for any signs of bleeding. At this point, from an abdominal standpoint, he has an open abdomen with a wound VAC in place and probably needs to go back to the operating room in a few days, assuming he survives and is stable. Antibiotics per Infectious Disease - including micafungin which was added as well as levofloxacin and meropenem. I am not really sure that we need levofloxacin in addition to meropenem. Perhaps Flagyl would be a better option. I will discuss with Dr. Lantigua. He remains on proton pump inhibitor drip for history of gastrointestinal bleed. We added subcutaneous heparin. He remains a FULL CODE. CRITICAL CARE TIME: 60 minutes.
[2016-11-15] MEDS: Heparin 5,000 Unit/mL Inj SUBQ SCH ×2 (11:21→16:13)
[2016-11-15] MEDS: fentaNYL 2,500 mCg/250 mL 2,500 MCG in IV Premix 1 EACH IV SCH (11:45)
--- NOTE | 2016-11-15 11:49 | NUR ---
Palliative Care Palliative Care received verbal order from Dr Deana Gabriel 11/15/16 to assist with goals of care. Patient is a 65 year old man who is here from [place] visiting his daughter. He has a history of stroke with right-sided hemiparesis and was admitted 11/12/16 for care of severe blood loss anemia from upper GI bleed, severe metabolic acidosis, respiratory failure, septic shock and progressive renal failure. Deana Fields (daughter) [phone] Josey Barfield (granddaughter) [phone] Palliative Care to follow. Yesy Mercer
--- NOTE | 2016-11-15 11:53 | PCM.CONPHA ---
Subjective Date of Service: Nov 15, 2016 TPN Reason for Pharmacy Consult: TPN Management Objective Vital Signs Date Time Temp Pulse Resp B/P Pulse Ox O2 Delivery O2 Flow Rate FiO2 11/15/16 09:04 102 106/54 96 80 11/15/16 08:00 36.8 101 16 92/52 95 Mechanical Ventilator 11/15/16 04:57 36.8 105 16 113/63 11/15/16 04:46 114 91 80 11/15/16 04:09 36.5 105 16 107/59 11/15/16 04:00 Ventilator 11/15/16 04:00 36.5 105 16 107/59 Mechanical Ventilator 80 11/15/16 03:15 36.6 107 16 99/53 11/15/16 03:00 36.9 107 16 98/53 11/15/16 02:39 36.7 110 17 99/53 11/15/16 02:21 36.8 110 16 107/58 11/15/16 00:00 111 91 80 11/15/16 00:00 36.8 117 16 119/57 Mechanical Ventilator 80 11/15/16 00:00 Ventilator 11/14/16 23:00 36.8 113 16 87/52 11/14/16 22:30 36.7 111 16 112/52 11/14/16 22:00 36.8 113 16 108/52 11/14/16 20:00 37.2 115 16 90/37 92 Mechanical Ventilator 60 11/14/16 20:00 Ventilator 11/14/16 19:04 Mechanical Ventilator 11/14/16 17:11 113 104/51 99 60 11/14/16 16:00 39.4 118 29 90/47 Mechanical Ventilator 11/14/16 13:07 116 102/53 94 60 11/14/16 12:00 39.4 116 28 101/51 98 Mechanical Ventilator Intake and Output 11/13/16 11/14/16 11/15/16 00:00 00:00 00:00 Intake Total 5322 ml 3060 ml 7369 ml Output Total 530 ml 943 ml 440 ml Balance 4792 ml 2117 ml 6929 ml Weight (Kilograms): 97.700 Height (Feet): 5 Height (Inches): 6.00 Test 11/12/16 08:23 11/13/16 02:30 11/13/16 10:05 11/13/16 10:19 Hold Zapien Top Tube Received (Received) Troponin T 3.00ug/L (0.0-0.011) Urine Legionella pneumophilia Ag Negative (Negative) Urine Color Radha (YELLOW) Urine Appearance Cloudy (CLEAR,HAZY) Urine pH 5.0 (5.0-8.0) Urine Specific [place] 1.024 (1.003-1.035) Urine Protein 30mg/dL (NEG,TRACE) Urine Glucose (UA) Negativemg/dL (NEGATIVE) Urine Ketones 40mg/dL (NEGATIVE) Urine Occult Blood Large (NEGATIVE) Urine Nitrite Negative (NEGATIVE) Urine Bilirubin Small (NEGATIVE) Urine Ictotest Positive (Negative) Urine Urobilinogen Normalmg/dL (NORMAL) Urine Leukocyte Esterase Trace (NEGATIVE) Urine RBC >50/hpf (0-2) Urine WBC 6-10/hpf (0-5) Urine Epithelial Cells Few/hpf (NONE-MOD) Urine Crystals Amorphous urates (NONE Urine Bacteria None/hpf (NONE-FEW) Urine Hyaline Casts None/lpf (NONE) Urine Granular Casts Occasional (NONE SEEN) Urine Waxy Casts Occassional (NONE SEEN) Urine Red Blood Cell Casts None seen (NONE SEEN) Urine White Blood Cell Casts None seen (NONE SEEN) Urine Mucus None seen (None Seen) Urine Trichomonas None seen (NONE SEEN) Urine Yeast None (NONE SEEN) Urinalysis Comment None Urine Culture Reflexed Indicated Test 11/13/16 16:25 11/13/16 16:30 11/14/16 03:30 11/14/16 20:05 Urine Random Creatinine 141mg/dL (22-328) Urine Random Sodium 20mEq/L Hold Urine Received (Received) Metamyelocytes % 1% (0-0) Total Creatine Kinase 472U/L (21-232) Procalcitonin 80.20ng/mL (0.00-0.08) Hematology Comments Test 11/14/16 23:25 11/15/16 05:30 11/15/16 08:45 Myelocytes % 2% (0-0) Fibrinogen 211mg/dL (157-380) Phosphorus Level 9.3mg/dL (2.5-4.9) Magnesium Level 1.9mg/dL (1.6-2.6) White Blood Count 28.0th/mm3 (3.8-10.1) Corrected White Blood Count 24.1th/mm3 (3.8-10.1) Red Blood Count 4.31mil/mm3 (4.40-5.80) Hemoglobin 9.9g/dL (13.8-17.2) Hematocrit 34.0% (41.0-50.0) Mean Corpuscular Volume 78.9fL (81-100) Mean Corpuscular Hemoglobin 23.0pg (27.0-35.0) Mean Corpuscular Hemoglobin Concent 29.1% (32.0-37.0) Red Cell Distribution Width 27.1% (12.3-15.4) Platelet Count 65bil/L (150-400) Neutrophils (%) (Auto) 78% (40-74) Lymphocytes (%) (Auto) 5% (14-46) Monocytes (%) (Auto) 8% (4-12) Eosinophils (%) (Auto) 0% (0-5) Basophils (%) (Auto) 0% (0-3) Band Neutrophils % 9% (1-5) Nucleated Red Blood Cells 16/100 WBC (0-24) Prothrombin Time 22.2sec (8.1-12.5) Prothromb Time International Ratio 2.04ratio Activated Partial Thromboplast Time 57.0sec (22.8-33.0) Sodium Level 137mEq/L (134-144) Potassium Level 6.8mEq/L (3.5-5.2) Chloride Level 100mEq/L (97-108) Carbon Dioxide Level 13mmol/L (18-29) Blood Urea Nitrogen 51mg/dL (8-27) Creatinine 4.30mg/dL (0.76-1.27) Estimat Glomerular Filtration Rate 15mL/min (>59) Glucose Level 51mg/dL (60-99) Lactic Acid Level 7.6mmol/L (0.4-2.0) Calcium Level 6.3mg/dL (8.5-10.1) Total Bilirubin 13.2mg/dL (0.0-1.2) Aspartate Amino Transf (AST/SGOT) 1945U/L (0-50) Alanine Aminotransferase (ALT/SGPT) 1234U/L (0-44) Alkaline Phosphatase 105U/L (25-160) Total Protein 4.6g/dL (6.4-8.4) Albumin 2.3g/dL (3.4-5.0) Triglycerides Level 86mg/dL (0-149) Assessment/Plan Assessment/Plan PARENTERAL NUTRITION ORDERS 1 - Standard Hang Time: 2100 Substrates Total kcal: 710 AMINO ACIDS 50 g DEXTROSE 150 g Total Volume (mL): 700 LIPIDS g Sterile Water for Injection QS mL To Infuse Over (hrs): 24 Total Volume 700 mL At at a rate of (mL/hr): 29 Additives Sodium Chloride 40 mEq "typical" daily requirements Sodium Acetate 40 mEq Sodium 50-120mEq Potassium Chloride mEq Potassium 60-120mEq Potassium Phosphate mEq Phosphate 20-40mEq Calcium Gluconate 4 mEq Magnesium 8-32mEq Magnesium Sulfate 8 mEq Calcium 9-22mEq Acetate* 80-120mEq Chloride* 80-120mEq Regular Insulin units *Depending on acid-base status Famotidine mg Multivitamins std dose Insulin Regimen Trace Elements std dose none Thiamine mg Regular Low Intensity Subcut Folic Acid mg Regular Medium Intensity Subcut Ascorbic Acid mg Regular High Intensity Subcut Regular Insulin Infusion Other: Pt is a medically complex 65yo male admitted for upper GI bleed, s/p bowel resection. On insulin & pantoprazole drip. Starting slowly on macronutrients and electrolytes due to liver failure and new start dialysis. Macronutrients per clinical manager field's recommendations. Labs ordered for am. Pharmacy will follow this patient with you for TPN therapy. Kenya Almanzar PharmD Nov 15, 2016 11:53
--- NOTE | 2016-11-15 12:25 | PROG NOTE ---
[address] [address] PROGRESS NOTE PATIENT: RAMA NAVARRO : 1950 MR#: [id number] ADMIT: 11/12/2016 JOB ID: [id number] DATE: 11/15/2016 PROGRESS NOTE: Postoperative day laparotomy with small bowel resection, open abdomen. He remains critically ill but was afebrile. Pressor requirement is decreased. He did have dialysis this morning. He continues to be essentially aneuric. His wound VAC did put out a total of 1100 cc since surgery. PHYSICAL EXAMINATION: On examination, he remains intubated, sedated. His incision is opened. Wound VAC is in place. LABORATORY DATA: His white count is 28,000, corrected to 24,000. His hematocrit is 34, although it had dropped down to 26 postop and he received 2 units of packed cells. He continues with a significant left shift. Chemistry showed potassium this morning of 6.8, for which he has since been dialyzed. His liver function tests continue to trend upward. His albumin is 2.3. Chest x-ray indicates that the lines are in place with bibasilar atelectasis, possible pneumonia. IMPRESSION AND PLAN: The patient remains critically ill. Discussed with the ICU team. He will continue with full support. I will tentatively schedule him for return to the operating room on to change his ABThera, possibly mature his ileostomy and mucous fistula. I doubt that he will be in any shape to close his abdomen at that time.
--- NOTE | 2016-11-15 12:25 | PCM.CONPAL ---
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 Underwent laparotomy on 11/14/2016 with finding of ischemic small bowel with multiple perforations, requiring removal of most of his small intestine. Remains ventilated, on multiple pressor support. Palliative medicine consult to assist patient's family in determination of goals of care. Summary of palliative recommendations: -Symptom management (Pain/other)- sedation/pain management per critical care protocols. Continued management per medicine and critical care teams. -DPOA/Advanced Directives/POLST- his is his default POA. Family members say that they had never previously discussed end-of-life care/resuscitation issues. At this time, they remain committed to all possible aggressive care. We carefully discussed the potential benefits and harm of cardiac resuscitation (CPR/defibrillation) in the setting of his multisystem organ failure- for now, the family wants to ponder this and talk amongst themselves but for the time being continue with FULL CODE status. I advised his family that my overall sense was that he had less than 5% chance of survival to hospital discharge, but that if he suffered cardiac arrest and underwent CPR/defibrillation that his chances of survival to hospital discharge would be effectively zero. -Family/emotional support- patient and his have excellent support from multiple family members. Palliative medicine will continue to follow and support as able. -Spiritual support- requested monomer recovery operator visit Additional Medical Diagnoses with primary management by Hospitalist team include : Acute refractory shock with multiorgan dysfunction, present on admission. Active. Ischemic bowel, s/p laparotomy and resection of ischemic small bowel with perforations Acute NSTEMI, present on admission. Active. Acute hypoxemic respiratory failure, present on admission. Active. Acute upper gastrointestinal bleed, present admission. Active. Acute severe blood loss anemia, present admission. Active. Acute oliguric renal failure, present on admission. Active. Severe anion gap metabolic acidosis, present on admission. Active. Transaminitis due to acute liver injury. Prior history of known stroke with right-sided weakness. Problems: End of Life Preferences Remains FULL CODE at this time Goals of Care Family continues to hope for near full recovery Disposition To be determined Resuscitation Status Resuscitation Status: CPR: Attempt Resuscitation POLST Updates/Changes Previous POLST?: No . Advanced Care Planning Address: Code status change, Durable Power of Superintendent Storage Area Pain: None Pt History History of Present Illness Per admission H&P: The patient is [place]-speaking and unable to communicate due to intubation. The patient has a history of CVA with residual impairment starting 9 years prior to admission. Family describes 8 months of general decline. Approximately 1 month of poor appetite. Her several days prior to admission nausea following attempts to eat food. He was unable to ambulate to bathroom and back without assistance. On the morning of admission he had an episode of dark brown-black emesis and 2 episodes of bowel incontinence. Family does not describe melena but feels that stools have been dark colored. Patient has prior history of GI bleeding in [place] in 06/2016, but did not undergo EGD at that time. He takes only an occasional aspirin, otherwise no NSAID. He has consumed beer during his adult life but family says he does not drink excessively. He has no history of peptic ulcer disease or liver cirrhosis. The family is not aware of complaints of chest pain, or shortness of breath. He is more confused than usual. Family reports increased leg swelling. Patient required intubation in the emergency department for acute respiratory failure. Over the next several days he developed evidence of acute multisystem organ failure with oliguric renal failure, liver function abnormalities compatible with shock liver, etc. He remained hypotensive and developed progressive leukocytosis, lactic acidosis, etc. as well as progressive abdominal findings and was taken to surgery on the evening of 11/14 with finding of ischemic small bowel process with perforations necessitating resection of most of the small bowel and extensive washout. Postoperatively he has remained critically ill with hypotension, hypoxic respiratory failure requiring progressive increase in FiO2 and PEEP, oliguria and renal failure with associated multiple electrolyte/metabolic abnormalities, etc. Palliative medicine was consulted to assist patient's family and determination of goals of care. Prior to visiting, I reviewed his records in the EMR in detail. I spoke at length with his medical critical care teams, his soft tile setter, his bedside nurse and others. Met later with the patient's family including , daughter and granddaughter, accompanied by general farmer and palliative QUALITY ASSURANCE SUPERVISOR CHASSIS Ms. Luz. We reviewed his hospital presentation and course of care to this point, discussed in detail his various diagnoses and answered questions that the family members had. Also spoke carefully about his overall prognosis in light of his multisystem organ failure, and also discussed carefully the family's wishes regarding aggressive resuscitative care. Past Medical History Significant PMH Noted: # CVA - right-sided hemiparesis, aphasia # Cognitive impairment - likely vascular dementia Social History Occupation: Medically disabled Visiting family here- lives in [place] with his and other family members who provide all of his care at home Family Members Issues: Overwhelmed by the severity and complexity of his medical problems Continue to hope for full recovery Family members repeated several times "it's in God hands " Social Support: Staying with family members here; strong support from extended family Living Situation: As above Palliative Performance Scale PPS Patient Status: Baseline PPS Ambulation: Reduced PPS Activity: Unable to do most activity PPS Self-Care: Occasional assistance necessary PPS Intake: Normal or reduced PPS Conscious Level: Full or confusion Performance Scale: 50% ADLs ADL Patient Status: Baseline ADL Ambulation: Reduced ADL Dressing: Occasional assistance necessary ADL Feeding: Occasional assistance necessary ADL Hygene/bathing: Occasional assistance necessary ADL Transfers: Occasional assistance necessary POLST at Time of Admission Previous POLST?: No Allergy Allergies Reviewed: Yes Medications Current Medications: Current Medications Linezolid 600 mg/ Premix 300 ml @ 300 mls/hr Q12 IV; Start 11/13/16 at 20:30; Stop 11/13/16 at 20:30; Status DC Sodium Chloride 250 ml @ 250 mls/hr Q1H IV Last administered on 11/13/16 19:36 ; Admin Dose 250 MLS/HR; Start 11/13/16 at 19:30; Stop 11/13/16 at 20:29; Status DC Sodium Chloride 1,000 ml @ 100 mls/hr Q10H IV Last administered on 11/13/16 22 :59; Admin Dose 100 MLS/HR; Start 11/13/16 at 22:40; Stop 11/14/16 at 09:43; Status DC Heparin Sodium (Porcine) Per Protocol for a... PRN PRN IVPUSH; Start 11/14/16 at 15:40; Stop 11/14/16 at 16:24; Status DC Levofloxacin/ Dextrose 750 mg/ Premix 150 ml @ 100 mls/hr Q48 IV Last administered on 11/14/16 17:28; Admin Dose 100 MLS/HR; Start 11/14/16 at 17:00 Vasopressin 20 unit/Sodium Chloride 101 ml @ 9.09 mls/hr Q11H7M IV Last administered on 11/15/16 00:50; Admin Dose 9.09 MLS/HR; Start 11/14/16 at 16:30 Dobutamine HCl/ Dextrose [id number] mcg/Premix 250 ml @ 6.51 mls/hr Q24H IV Last administered on 11/14/16 17:25; Admin Dose 6.51 MLS/HR; Start 11/14/16 at 16:49 ; Stop 11/14/16 at 21:25; Status DC Ceftaroline Fosamil 600 mg/ Dextrose/Water 250 ml @ 250 mls/hr OT IV; Start at 17:30; Stop 11/15/16 at 08:01; Status DC Ceftaroline Fosamil 300 mg/ Dextrose/Water 250 ml @ 250 mls/hr Q12 IV; Start at 08:30; Stop 11/15/16 at 08:30; Status DC Sodium Chloride 1,000 ml @ 200 mls/hr Q5H IV Last administered on 11/15/16 06: 01; Admin Dose 200 MLS/HR; Start 11/14/16 at 19:40 Sodium Chloride 500 ml @ 0 mls/hr Q0M PRN IV Last administered on 11/15/16 01: 50; Admin Dose 999 MLS/HR; Start 11/14/16 at 21:30 Sodium Bicarbonate 150 meq/Sterile Water 1,150 ml @ 200 mls/hr Q5H45M IV Last administered on 11/15/16 02:41; Admin Dose 200 MLS/HR; Start 11/14/16 at 23:40 ; Stop 11/15/16 at 11:57; Status DC Ceftaroline Fosamil 300 mg/ Dextrose/Water 250 ml @ 250 mls/hr Q12 IV; Start at 20:30; Stop 11/15/16 at 20:30; Status DC Micafungin Sodium 150 mg/Sodium Chloride 107.5 ml @ 107.5 mls/ hr Q24 IV Last administered on 11/15/16 09:51; Admin Dose 107.5 MLS/HR; Start 11/15/16 at 08: 30 Albumin Human 100 ml @ 50 mls/hr Q1H IV Last administered on 11/15/16 09:02; Admin Dose 50 MLS/HR; Start 11/15/16 at 09:00; Stop 11/15/16 at 10:08; Status DC Heparin Sodium (Porcine) 5000 unit 5,000 unit Q8 SUBQ Last administered on 11:21; Admin Dose 5,000 UNIT; Start 11/15/16 at 09:30 Albumin Human 100 ml @ 50 mls/hr Q1H IV Last administered on 11/15/16 10:30; Admin Dose 50 MLS/HR; Start 11/15/16 at 11:00; Stop 11/15/16 at 14:59 Total Parenteral Nutrition ml @ 0 mls/hr Q24H IV; Start 11/15/16 at 21:00 Scheduled Cholecalciferol (Vitamin D3) (Vitamin D3) 1,000 Unit Tab.chew Unknown Dose PO DAILY Scheduled PRN Albuterol (Albuterol) 2 Mg Tablet Unknown Dose PO Q8H PRN PRN For Shortness of Breath Lorazepam (Lorazepam) 0.5 Mg Tablet Unknown Dose PO HS PRN PRN For Insomnia Melatonin (Melatonin) 5 Mg Tablet Unknown Dose PO HS PRN PRN Insomnia Current Treatments Ventilator: Yes Oxygen: Yes TPN: Yes IV Fluids: Yes Antibiotics: Yes Telemetry: Yes Critical Care Unit: Yes Objective Findings Exam Vital Sign - Last Date Time Temp Pulse Resp B/P Pulse Ox O2 Delivery O2 Flow Rate FiO2 11/15/16 09:04 102 106/54 96 80 11/15/16 08:00 36.8 16 Mechanical Ventilator 11/12/16 11:49 15 Intake and Output 11/14/16 11/14/16 11/15/16 Cumulative From/Thru 15:00 23:00 07:00 11/12/16 07:39 - 11/15/16 05:43 Intake Total 4653 ml 89186 ml 66167 ml Output Total 140 ml 1299 ml 3212 ml Balance 4513 ml 9084 ml 09363 ml Intake Oral 180 ml 180 ml IV Total 4262 ml 9164 ml 31767 ml Packed Cells 610 ml 1230 ml FFP 211 ml 609 ml 820 ml Tube Irrigant 80 ml Output Urine Total 90 ml 24 ml 612 ml Gastric Drainage Total 0 ml 150 ml 1025 ml Drainage Total 1125 ml 1125 ml Estimated Blood Loss 50 ml 50 ml Other 400 ml # Bowel Movements 0 0 Objective Intubated, unresponsive, sedated. Vital signs noted. Continues on norepinephrine and vasopressin IV. Undergoing dialysis. Skin is sallow, warm and dry. Head and neck exam without acute findings other than diffuse edema. Lungs with good bilateral air movement on ventilator. Heart sounds rapid and regular. Abdomen with postsurgical dressings in place- not removed. Extremities diffusely puffy/edematous. Bilateral feet dusky cool and pulseless. Lab/Diagnostics Lab and Imaging results reviewed in detail in EMR. Time spent Total time 100 minutes; >50% face to face with patient and family, providing counselling regarding plans and recommendations, and in care coordination with his medical teams. The above time, 15 minutes counseling for advanced care planning with the patient's family, reviewing their wishes for resuscitation, etc. Kunal Melgar MD Nov 15, 2016 12:25
--- NOTE | 2016-11-15 12:44 | PCM.PNMED ---
Subjective Date of Service Nov 15, 2016 Subjective GASTROENTEROLOGY PROGRESS NOTE From GI standpoint, no evidence bleeding from upper or lower source at this time. Difficult to assess recent lab values secondary to multiple interventions that had taken place overnight. Patient remains intubated and sedated in CCU, was receiving bedside dialysis at time of evaluation. Wound vac in place at mid-abdomen with serosang output. WBC continues to rise with elev lactic 7.6. No obvious signs of bleeding at this time. Drop in HH noted overnight, thought to be secondary to interventions. Transfused 2U pRBC, with appropriate change in readings. Exam Vital Signs Vital Sign - Last Date Time Temp Pulse Resp B/P Pulse Ox O2 Delivery O2 Flow Rate FiO2 11/15/16 09:04 102 106/54 96 80 11/15/16 08:00 36.8 16 Mechanical Ventilator 11/12/16 11:49 15 Intake and Output 11/14/16 11/14/16 11/15/16 Cumulative From/Thru 15:00 23:00 07:00 11/12/16 07:39 - 11/15/16 05:43 Intake Total 4653 ml 58505 ml 62294 ml Output Total 140 ml 1299 ml 3212 ml Balance 4513 ml 9084 ml 05296 ml Intake Oral 180 ml 180 ml IV Total 4262 ml 9164 ml 51790 ml Packed Cells 610 ml 1230 ml FFP 211 ml 609 ml 820 ml Tube Irrigant 80 ml Output Urine Total 90 ml 24 ml 612 ml Gastric Drainage Total 0 ml 150 ml 1025 ml Drainage Total 1125 ml 1125 ml Estimated Blood Loss 50 ml 50 ml Other 400 ml # Bowel Movements 0 0 Exam General: Intubated and sedated; no acute distress HEENT: Atraumatic; sclera anicteric; ETT in place Neck: Trachea midline Cardiac: Tachycardic rate at approx 100 at time of evaluation Respiratory: Adequate air flow all golden; no crackles Abdomen: Soft, nondistended; cannot accurately assess for pain secondary to sedation; linear vertical incision noted mid-abdomen with wound vac in place, borders free of erythema, no leakage noted; wound vac output appears serosanguinous Extremities: BLUE edematous; RLE remains cool distally from toes to ankle with coloration change to dusky blue, dorsalis pulse not manually palpable; LLE warm , pink and intact dorsalis pedis pulse Skin: Warm and dry Neuro: Cannot assess secondary to sedation Psych: Cannot assess secondary to sedation Lab and Diagnostics Result Diagram: 11/15/16 0530 11/15/16 0530 Microbiology 11/13 UA 6-10 wbc, hematuria. No bacteria. MRSA nasal swab negative Sputum culture pending Strep pneumo antigen negative Viral respiratory panel negative Blood cultures 11/13 no growth X-Rays, CTs and MRIs X-RAY CHEST ONE VIEW, PORTABLE IMPRESSION: Bibasilar atelectasis versus aspiration or pneumonia. Correlate clinically. Dictated by: Mendez Meléndez RRArik Interpreted: Rachel Martinez MD on 11/14/2016 at 9:01 X-RAY CHEST ONE VIEW, PORTABLE Lungs and pleura: No pleural effusions or pneumothorax. Evaluation limited due to patient rotation. There are a few linear medial left retrocardiac opacities likely representing atelectasis. IMPRESSION: 1. Linear left retrocardiac opacities likely represent atelectasis. Dictated by: Raudel Chester M.D. on 11/12/2016 at 11:06 CT CHEST, ABDOMEN AND PELVIS WITHOUT CONTRAST IMPRESSION: 1. No intra-abdominal or intrathoracic hematoma identified. 2. Marked irregular concentric wall thickening of the bladder with heterogeneous bladder contents and partial calcification of the bladder wall. The findings may represent sequelae of cystitis or bladder mass. Recommend correlation with clinical history and cystoscopy if indicated. 3. Small 3-4 mm right upper lobe nodule. A followup study may be performed in 12 months to demonstrate stability if indicated. Dictated by: Raudel Chester M.D. on 11/12/2016 at 12:37 US ABDOMEN, LIMITED IMPRESSION: Limited examination demonstrating no evidence of cholecystitis. Dictated by: Camilla Klein M.D. on 11/13/2016 at 10:39 . 12-lead ECG EKG per admission note: Sinus tach 106. Normal conduction intervals. [address] depression V2-V6. Q wave III, but not II, aVF. . Cardiac Echo Impressions Echocardiogram Interpretation Summary: Normal sinus rhythm. Normal LV size, wall thickness;l there is basal inferior wall akinesis; otherwise normal wall motion. LV is D shaped in both systole and diastole c/w RV pressure overload. Estimated PA systolic pressure is 40 mm Hg assuming RA pressure of 10 mm Hg. RV is severely dilated with severely reduced RV function. No prior study is available for comparison. Reading Physician:05:15 PM . Assessment & Plan GASTROENTEROLOGY PROGRESS NOTE Mr. Fields is a 65 year old gentleman from [place] with reported history of CVA with right sided hemiparesis that presented to [facility] 11/12 with complaints of hematemesis and dark, tarry stools. History is obtained from chart review, as patient is intubated and sedated. Chart review indicates that Mr. Fields may have had a similar episode a few months ago, but did not seek medical attention. No known history of chronic NSAID use, family reported beer ingestion but not in excess, and no known history of previous EGD, PUD, or cirrhosis. - CT C/A/P wo/contrast 11/12: No intra-abdominal or intrathoracic hematoma identified. Marked irregular concentric wall thickening of the bladder with heterogeneous bladder contents and partial calcification of the bladder wall. The findings may represent sequelae of cystitis or bladder mass. Recommend correlation with clinical history and cystoscopy if indicated. Small 3-4 mm right upper lobe nodule. No focal lesions of liver or gallstones observed but difficult to assess secondary to motion artifact. - US abd LTD 11/13: Limited examination demonstrating no evidence of cholecystitis. Assessments - Elevated LFTs likely secondary to ongoing sepsis vs ischemic hepatitis due to hypoperfusion - Hematemesis and suspected melena likely secondary to UGIB of unknown etiology , suspect ulceration - Small bowel ischemia with perforation s/p laparotomy with small bowel resection and wound vac placement - Acute anemia likely secondary to critical surgical interventions; transfused 2U pRBC with appropriate response Recs: - Continue supportive tx per primary/ICU/surgical teams - Hold off EGD - Continue protonix gtt - Monitor HH and transfuse per primary team prn - Continue palliative care discussions as appropriate - Prognosis: Poor - Patient has multiple comorbidities, and requires continued CCU care - No need for emergent endoscopy at this time; we will continue to monitor Thank you for this consult, we will follow along at this time. Total time: 30 minutes GI Prophylaxis: Proton Pump Inhibitor VTE Prophylaxis: SCDs VTE Mechanical Devices: Intermittant Pneumatic CD Resuscitation Status: CPR: Attempt Resuscitation Anna Hinojosa DO Nov 15, 2016 09:28 Kunal Luna MD Nov 15, 2016 13:40
--- NOTE | 2016-11-15 13:29 | ABG ---
DateTimeAnalyzed 13:25:00 -_ pH ____7.262 - 7.350 7.450 pCO2 ___43.8__ -mmHg 35.0 45.0 pO2 ___36.3__ -mmHg 69.0 116 HCO3- ___19.1__ -mmol/L ABE ___-7.0__ -mmol/L tHb ____9.2__ -g/dL O2Hb ___61.5__ -% COHb ____0.9__ -% MetHb ____1.0__ -% sO2 ___62.7__ -% FIO2 ___80.0__ -% PRVC 400 - PEEP ___12.0__ -cmH2O Set_RR ___24.0__ -b/min Vt __400.0__ -L Drawn By NB - Date/Time Notified____ 13:28:00 -_ Spontaneous_RR ___24.0__ -b/min Oxygen Device 1 VENTILATOR - Notified By NB - Notified Whom _DR LISY - B 761 -mmHg tO2 ____8.0__ -Vol% Herve test N/A -
--- NOTE | 2016-11-15 13:34 | NUR ---
dialysis note [facility] tx. 3 hrs. 1500ml net UF removed. Pt tolerated UF rate well with primary RN able to titrate blood pressure support down during tx. See DTR for complete vitals data. L femoral catheter. QB 250. F 16 dialyzer. No Heparin. Serologies drawn/machine bleached. Catheter dwelled with 1000/1 U heparin and secured to thigh.
--- NOTE | 2016-11-15 13:47 | NUR ---
Social Work: Continued d/c planning Data: Pt is on day 3 of hospitalization. EMR reviewed, pt discussed in rounds. states pt prognosis is unclear, pt possibly to remain in hospital for many days if he does not pass here. Palliative Care has been consulted. AIR TRAFFIC CONTROLLER called [employer] to ensure they will meet with pt's family regarding Medicaid application as pt is listed as private pay. AIR TRAFFIC CONTROLLER will continue to follow for possible d/c needs. Assessment: Pt who is in wheel chair at baseline. Plan: AIR TRAFFIC CONTROLLER will follow for possible d/c needs. CORONA Robbins
--- NOTE | 2016-11-15 13:54 | PCM.PNMED ---
Subjective Date of Service Nov 15, 2016 Subjective Intensive/Pulmonology Progress Note: Attending Dr. Gale Fields is a 65-year-old male with a past medical history significant for CVA with residual right-sided hemiparesis who presented to [facility] with acute GI bleed and severe blood loss anemia, acute hypoxemic respiratory failure, and profound metabolic acidosis, and multifactorial shock. He was found to have abdominal compartment syndrome secondary to ischemic small bowel with perforation now status post small bowel resection, oliguric acute renal failure requiring hemodialysis, bibasilar pneumonia, and transaminitis secondary to shock liver. Hospital day #4. Overnight telemetry: Sinus tachycardia, heart rate 100's, with runs up to 120's. Subjective exam and review of systems is unobtainable as patient is intubated and sedated. His received 4 units of FFP and 2 units of PRBC postoperatively. He had copious serosanguineous output from his wound VAC. . Exam Vital Signs Vital Sign - Last Date Time Temp Pulse Resp B/P Pulse Ox O2 Delivery O2 Flow Rate FiO2 11/15/16 09:04 102 106/54 96 80 11/15/16 08:00 36.8 16 Mechanical Ventilator 11/12/16 11:49 15 Intake and Output 11/14/16 11/14/16 11/15/16 Cumulative From/Thru 15:00 23:00 07:00 11/12/16 07:39 - 11/15/16 05:43 Intake Total 4653 ml 55302 ml 81620 ml Output Total 140 ml 1299 ml 3212 ml Balance 4513 ml 9084 ml 99940 ml Intake Oral 180 ml 180 ml IV Total 4262 ml 9164 ml 70079 ml Packed Cells 610 ml 1230 ml FFP 211 ml 609 ml 820 ml Tube Irrigant 80 ml Output Urine Total 90 ml 24 ml 612 ml Gastric Drainage Total 0 ml 150 ml 1025 ml Drainage Total 1125 ml 1125 ml Estimated Blood Loss 50 ml 50 ml Other 400 ml # Bowel Movements 0 0 Exam General: Older gentleman in no acute distress, intubated and sedated. HEENT: Normocephalic, atraumatic. External ears without defect. Pupils equal, round, and reactive to light. Anicteric sclerae and moist conjunctivae. Endotracheal tube in place Neck: No lymphadenopathy or thyromegaly. Cardiovascular: Regular rhythm, tachycardic, without murmurs, rubs, or gallops appreciated Pulmonary: Clear to auscultation bilaterally with no crackles, wheezes, or rhonchi. Normal respiratory effort with no use of accessory muscles. Abdomen: Open abdomen with ABThera dressing and woundvac in place. Extremities: Right lower extremity edematous, cold, and cyanotic. Bilateral extremities without pulses. Skin: Normal temperature, turgor, and texture; no rash, ulcers, or subcutaneous nodules appreciated. Neurological: Intubated and sedated. Right-sided upper extremity contraction. Ventilator settings: PRVC. Tidal volume 400. Respiratory rate 16. FiO2 80%. PEEP 12.0. Peak 27. Plateau 22. ABG: PH 7.088. PCO2 50.6. PO2 103. HCO3 14.6. On PRVC with FiO2 80%, PEEP 12.0, and SPO2 of 96.7%. IV drips and Sedatives: Fentanyl 50 g/hr Precedex 0.7 g/kg/hr. Norepinephrine 0.60 g/kg/min and Vasopressin0.03 g/kg/min. IV lines: Left PICC line, right femoral arterial line, left femoral temporary dialysis catheter. I&O: Net + [id number]. . IVs and Medications Medications Reviewed: Medications were reviewed in detail Lab and Diagnostics Item Value Date Time Lactic Acid Level 10.3 mmol/L *H 11/14/162324 Lactic Acid Level 7.6 mmol/L *H 11/15/16529 Item Value Date Time Calcium Level 6.3 mg/dL *L 11/15/16 05 Total Bilirubin 13.2 mg/dL H 11/15/16529 Aspartate Amino Transf (AST/SGOT) 1945 U/L H 11/15/16 05 Alanine Aminotransferase (ALT/SGPT) 1234 U/L H 11/15/16 05 Alkaline Phosphatase 105 U/L 11/15/16529 Total Protein 4.6 g/dL L 11/15/16 05 Albumin 2.3 g/dL L 11/15/16 05 Triglycerides Level 86 mg/dL 11/15/16529 Result Diagram: 11/15/1652911/15/16529 Microbiology Sputum culture grew light normal kathy, MRSA screen negative, respiratory viral PCR negative, Streptococcus pneumoniae and legionella urine antigens negative, and blood culture 2 has no growth after 2 days. . X-Rays, CTs and MRIs X-RAY CHEST ONE VIEW, PORTABLE IMPRESSION: Bibasilar atelectasis versus aspiration or pneumonia. Correlate clinically. Dictated by: Mendez JOVEL Interpreted: Rachel Martinez MD on 11/14/2016 at 9:01 X-RAY CHEST ONE VIEW, PORTABLE Lungs and pleura: No pleural effusions or pneumothorax. Evaluation limited due to patient rotation. There are a few linear medial left retrocardiac opacities likely representing atelectasis. IMPRESSION: 1. Linear left retrocardiac opacities likely represent atelectasis. Dictated by: Raudel Chester M.D. on 11/12/2016 at 11:06 CT CHEST, ABDOMEN AND PELVIS WITHOUT CONTRAST IMPRESSION: 1. No intra-abdominal or intrathoracic hematoma identified. 2. Marked irregular concentric wall thickening of the bladder with heterogeneous bladder contents and partial calcification of the bladder wall. The findings may represent sequelae of cystitis or bladder mass. Recommend correlation with clinical history and cystoscopy if indicated. 3. Small 3-4 mm right upper lobe nodule. A followup study may be performed in 12 months to demonstrate stability if indicated. Dictated by: Raudel Chester M.D. on 11/12/2016 at 12:37 US ABDOMEN, LIMITED IMPRESSION: Limited examination demonstrating no evidence of cholecystitis. Dictated by: Camilla Klein M.D. on 11/13/2016 at 10:39 . 12-lead ECG EKG per admission note: Sinus tachycardia 106. Normal conduction intervals. [address] depression V2-V6. Q wave III, but not II, aVF. . Cardiac Echo Impressions Echocardiogram Interpretation Summary: Normal sinus rhythm. Normal LV size, wall thickness;l there is basal inferior wall akinesis; otherwise normal wall motion. LV is D shaped in both systole and diastole c/w RV pressure overload. Estimated PA systolic pressure is 40 mm Hg assuming RA pressure of 10 mm Hg. RV is severely dilated with severely reduced RV function. No prior study is available for comparison. Reading Physician:05:15 PM . Assessment & Plan Krzysztof Fields is a 65-year-old male with a past medical history significant for CVA with residual right-sided hemiparesis who presented to [facility] with acute GI bleed and severe blood loss anemia, acute hypoxemic respiratory failure, and profound metabolic acidosis, and multifactorial shock. He was found to have abdominal compartment syndrome secondary to ischemic small bowel with perforation now status post small bowel resection, oliguric acute renal failure requiring hemodialysis, bibasilar pneumonia, and transaminitis secondary to shock liver. Hospital day #4. 1. Acute refractory shock with multiorgan dysfunction, present on admission. Active. - Multifactorial and likely secondary to cardiogenic, hypovolemic, and septic shock contributing. - SIRS criteria met for sepsis include: Hypothermia (temperature 35.8C), tachypnea (respiratory rate 22), tachycardic (pulse 117) , with a leukocytosis of 18.8 and a lactic acid of 20.8 and unresponsive to IV fluid resuscitation. Suspected sources of infection and profound lactic acidosis include: probable pneumonia versus ischemic limb versus infarcted bowel versus GI infection versus SBP? - Early goal-directed therapy met including: IV fluid resuscitation and broad- spectrum antibiotic coverage. - Continue norepinephrine and vasopressin and titrate off as tolerated. 2. Acute ischemic small bowel with perforation now status post small bowel resection, present on admission. Active. - The patient presented profoundly anemic in severe refractory shock requiring 2 vasopressors with a profound persistent metabolic acidosis and lactic acidosis. - CT abdomen and pelvis without contrast on admission did not reveal any acute intraabdominal process. - Surgery was consulted for possible ischemic bowel and ischemic limb. The patient was taken to the OR and was found to have abdominal compartment syndrome secondary to ischemic small bowel with perforation now status post small bowel resection. - The patient has 3 ft of small bowel remaining and 6 inches of terminal ileum therefore if he survives the acute illness. - Patient left with open abdomen and ABThera dressing and wound vac in place. Surgery will plan to take him back to the OR on depending on clinical status to perform two blind loops. - Continue meropenem, levofloxacin and micafungin per ID. - Infectious disease consulted and following. We appreciate their time and recommendations. 3. Acute hypoxemic respiratory failure, present on admission. Active. - Chest x-ray revealed bibasilar atelectasis versus aspiration or pneumonia, as above. - Continue ventilator with settings, as above. - Continue ABG daily for ventilator management. - Continue propofol and fentanyl for sedation, as above. - Procalcitonin highly elevated at 80.20 but in the setting of acute renal failure. - Sputum culture grew light normal kathy, MRSA screen negative, respiratory viral PCR negative, Streptococcus pneumoniae and legionella urine antigens negative, and blood culture 2 has no growth after 2 days. - Continue meropenem, levofloxacin, and micafungin per ID. 4. Acute NSTEMI, present on admission. Active. - Likely stress induced secondary to hypovolemia and shock. - Initial troponin 0.104. Trending when last checked. - EKG on admission showed ST depression in V2-V6 and a Q wave III, but not II, aVF.as above per admission note. - Echocardiogram shows preserved EF of 55-60% with severe RV dilatation and function, as above. - Right leg swelling present and possibly chronic with h/o CVA. Doppler venous and arterial ultrasound ordered and pending. 5. Acute upper gastrointestinal bleed, present admission. Active. - Patient reportedly had hematemesis. - Continue PPI. - Continue mechanical DVT prophylaxis in the setting of acute GI bleeding. 6. Acute severe blood loss anemia, present admission. Active. - Presented with severe anemia and hemoglobin of 4.6, hypotensive, and minimally responsive. - Received 4 units PRBC's. Received another 2 units PRBC and 4 units FFP postoperatively after small bowel resection. - Hemoglobin and hematocrit stable. Continue to monitor closely. 7. Acute oliguric renal failure, present on admission. Active. - Likely secondary to ATN from acute GI blood loss and hypotension/hypovolemia. - Creatinine 1.88 on admission. Creatinine continues to trend up and the patient is now oliguric. - Hyperkalemic at 6.4. Ordered Kayexalate 30 g 1. - Avoid nephrotoxic agents. - Continue to monitor urine output and renal function daily. - Nephrology consulted and following. We appreciate their time and recommendations. Plan for hemodialysis this morning. 8. Severe anion gap metabolic acidosis, present on admission. Active. - Initially presented with a with a pH of 6.9 with severe metabolic and lactic acidosis. Initial anion gap was 34 with highly elevated lactic acid at 20.8. - Discontinued fluids as there is evidence of fluid overload. - Restarted bicarbonate drip at 50 mL/hr in sterile water as patient was becoming more acidotic. - Treat underlying process which was ischemic bowel with rising lactic acidosis and now ischemic limb versus bibasilar pneumonia. 9. Transaminitis due to acute liver injury. - Likely secondary to shock liver. - LFTs slowly improving. - Avoid hepatotoxic agents. - Continue to monitor LFTs daily. 10. Prior history of known stroke with right-sided weakness. - Holding aspirin as patient presented with acute GI bleed. Continue statin. Disposition planning: Bleek based on multiorgan system failure. . GI Prophylaxis: Proton Pump Inhibitor VTE Prophylaxis: SCDs VTE Mechanical Devices: Intermittant Pneumatic CD Resuscitation Status: CPR: Attempt Resuscitation Attending Statement I have seen and examined this patient with the resident physician. Vital signs , labs, imaging have been reviewed. I agree with the assessment and plan above. Please refer to my separately dictated progress note for any modifications to above. Martina Beasley M.D. Pulmonary and Critical Care medicine Pager [phone] Nicolasa Sarmiento DO Nov 15, 2016 13:54 Martina Beasley MD Nov 16, 2016 07:39 of 18.8 and a lactic acid of 20.8 and unresponsive to IV fluid resuscitation. Suspected sources of infection and profound lactic acidosis include: probable pneumonia versus ischemic limb versus infarcted bowel versus GI infection versus SBP? - Early goal-directed therapy met including: IV fluid resuscitation and broad- spectrum antibiotic coverage. - Continue norepinephrine and titrate off as tolerated. 2. Acute ischemic small bowel with perforation now status post small bowel resection, present on admission. Active. - The patient presented profoundly anemic in severe refractory shock requiring 2 vasopressors with a profound persistent metabolic acidosis and lactic acidosis. - CT abdomen and pelvis without contrast on admission did not reveal any acute intraabdominal process. - Surgery was consulted for possible ischemic bowel and ischemic limb. The patient was taken to the OR and was found to have abdominal compartment syndrome secondary to ischemic small bowel with perforation now status post small bowel resection. - The patient has 3 ft of small bowel remaining and 6 inches of terminal ileum therefore if he survives the acute illness - Continue meropenem, levofloxacin and micafungin per ID 3. Acute hypoxemic respiratory failure, present on admission. Active. - Chest x-ray revealed bibasilar atelectasis versus aspiration or pneumonia, as above. - Continue ventilator with settings, as above. - Continue ABG daily for ventilator management. - Continue propofol and fentanyl for sedation, as above. - Procalcitonin highly elevated at 80 but in the setting of acute renal failure. - Sputum culture grew light normal kathy, MRSA screen negative and blood culture 2 has no growth after 24 hours. - Continue meropenem, levofloxacin and micafungin per ID. 4. Acute NSTEMI, present on admission. Active. - Likely stress induced secondary to hypovolemia and shock. - Initial troponin 0.104. Trending when last checked. - EKG on admission showed ST depression in V2-V6 and a Q wave III, but not II, aVF.as above per admission note. - Echocardiogram shows preserved EF of 55-60% with severe RV dilatation and function, as above. - Right leg swelling present and possibly chronic with h/o CVA. Doppler venous and arterial ultrasound ordered and pending. 5. Acute upper gastrointestinal bleed, present admission. Active. - Patient reportedly had hematemesis. - Continue PPI. - Continue mechanical DVT prophylaxis in the setting of acute GI bleeding. 6. Acute severe blood loss anemia, present admission. Active. - Presented with severe anemia and hemoglobin of 4.6, hypotensive, and minimally responsive. - Received 4 units PRBC's. Received another 2 units PRBC and 4 units FFP postoperatively after small bowel resection. - Hemoglobin and hematocrit stable. Continue to monitor closely. 7. Acute oliguric renal failure, present on admission. Active. - Likely secondary to ATN from acute GI blood loss and hypotension/hypovolemia. - Creatinine 1.88 on admission. Creatinine continues to trend up and the patient is now oliguric. - Hyperkalemic at 6.4. Ordered Kayexalate 30 g 1. - Avoid nephrotoxic agents. - Continue to monitor urine output and renal function daily. - Nephrology consulted and following. We appreciate their time and recommendations. Plan for hemodialysis this morning. 8. Severe anion gap metabolic acidosis, present on admission. Active. - Initially presented with a with a pH of 6.9 with severe metabolic and lactic acidosis. Initial anion gap was 34 with highly elevated lactic acid at 20.8. - Discontinued fluids as there is evidence of fluid overload. - Restarted bicarbonate drip at 50 mL/hr in sterile water as patient was becoming more acidotic. - Treat underlying process which was ischemic bowel with rising lactic acidosis and now ischemic limb versus bibasilar pneumonia. 9. Transaminitis due to acute liver injury. - Likely secondary to shock liver. - LFTs slowly improving. - Avoid hepatotoxic agents. - Continue to monitor LFTs daily. 10. Prior history of known stroke with right-sided weakness. - Holding aspirin as patient presented with acute GI bleed. Continue statin. Disposition planning: Bleek based on multiorgan system failure. . GI Prophylaxis: Proton Pump Inhibitor VTE Prophylaxis: SCDs VTE Mechanical Devices: Intermittant Pneumatic CD Resuscitation Status: CPR: Attempt Resuscitation Nicolasa Sarmiento DO Nov 15, 2016 13:54
[2016-11-15] MEDS: Insulin Human REGular 100 Units/100 mL NS IV SCH ×2 (14:28)
[2016-11-15] MEDS: DOBUTamine 500 mg/250 D5W 500,000 MCG in IV Premix 1 EACH IV SCH (14:46)
--- NOTE | 2016-11-15 16:13 | ABG ---
DateTimeAnalyzed 16:09:00 -_ pH ____7.212 - pCO2 ___42.2__ -mmHg pO2 ___40.5__ -mmHg HCO3- ___16.3__ -mmol/L ABE __-10.4__ -mmol/L tHb ____8.9__ -g/dL O2Hb ___64.5__ -% COHb ____0.9__ -% MetHb ____1.0__ -% sO2 ___65.8__ -% FIO2 ___80.0__ -% PRVC 400 - PEEP ___12.0__ -cmH2O Set_RR ___24.0__ -b/min Vt __400.0__ -L Drawn By NB - Date/Time Notified____ 16:13:00 -_ Spontaneous_RR ___24.0__ -b/min Oxygen Device 1 VENTILATOR - Notified By nb - Notified Whom Dr Parimi - B 761 -mmHg tO2 ____8.1__ -Vol% Herve test N/A -
[2016-11-15 16:46] LABS: EOSINOPHILS % (AUTO) 0 % (0-5); Mean Corpuscular Hemoglobin 22.8 pg (27.0-35.0); Mean Corpuscular Volume 75.7 fL (81-100); Platelet Count 50 bil/L (150-400)
--- NOTE | 2016-11-15 16:52 | NUR ---
Dialyzed today, 1 1/2 L fluid taken off; BP trended upwards during HD. Albumin given. Levophed titrated down to 0.3mcg. NBPs do not correlate with arterial line pressures. Sinus rhythm, 80s, rare PVC, trending up to 100-110s when Dobutamine started; have noted no increase in BP; diastolic pressures have decreased throughout the day. Afebrile. Appears comfortable and in no distress. Some frowning with oral care noted. Abd dressing to suction/wound vac has drained 1400ml serous fluid this shift. Bicarb gtt stopped, IVFs stopped. Hypoglycemic episodes, blood glucoses 50-60s, requiring administration of D50, with good response, IVFs of D5 1/2 NS infusing at 50ml/hr continuously. Micafungin started. Fentanyl infusion decreased to 25mcg/hr per MD. Palliative medicine consulted with family. Bilat feet cool, bluish, unable to palpate or doppler pulses, MD aware. Heparin SQ started. TPN to start this evening when available. UOP 31ml/12 hours. No stool, no flatus, no bowel tones. Abd soft, dressing intact. Supportive family at bedside, pleasant, cooperative; questions/concerns addressed.
[2016-11-15 17:46] LABS: BASOPHILS % (AUTO) 0 % (0-3); MONOCYTES % (AUTO) 6 % (4-12); NEUTROPHILS % (AUTO) 83 % (40-74)
--- NOTE | 2016-11-15 18:41 | NUR ---
[id number] labs paged to Dr. Gabriel.
[2016-11-15] MEDS ORDERED: Calcium GLUCO 10% (mEq) Inj 9.3 MEQ in Dextrose 5% 100 ML IV ONE (18:50)
--- NOTE | 2016-11-15 19:31 | ABG ---
DateTimeAnalyzed 19:27:00 -_ pH ____7.179 - 7.350 7.450 pCO2 ___38.2__ -mmHg 35.0 45.0 pO2 ___99.6__ -mmHg 69.0 116 HCO3- ___13.7__ -mmol/L 22.0 26.0 ABE __-13.5__ -mmol/L -2.0 2.0 tHb ____9.8__ -g/dL O2Hb ___94.4__ -% COHb ____0.7__ -% MetHb ____0.9__ -% sO2 ___95.9__ -% 25.0 FIO2 ___80.0__ -% PEEP ___12.0__ -cmH2O Set_RR ___24.0__ -b/min Vt __400.0__ -L Drawn By MK - Date/Time Notified____ 19:30:00 -_ Spontaneous_RR ___24.0__ -b/min Oxygen Device 1 VENTILATOR - Notified By MK - B 761 -mmHg tO2 ___13.1__ -Vol% Herve test N/A -
[2016-11-15] MEDS: Sodium Bicarb 8.4% Inj 150 MEQ in Dextrose 5% 1,000 ML IV SCH (19:58)
[2016-11-15 20:00] LABS: Mean Corpuscular Hemoglobin 22.9 pg (27.0-35.0); Mean Corpuscular Volume 76.8 fL (81-100); Platelet Count 50 bil/L (150-400)
[2016-11-15 20:26] LABS: BASOPHILS % (AUTO) 0 % (0-3); EOSINOPHILS % (AUTO) 0 % (0-5); MONOCYTES % (AUTO) 6 % (4-12); NEUTROPHILS % (AUTO) 85 % (40-74)
[2016-11-15] MEDS ORDERED: Total Parenteral Nutrition 1 BAG IV SCH (21:00)
[2016-11-15] MEDS ORDERED: Cisatracurium 200,000 mCg/100 mL NS IV SCH ×2 (21:20)
--- NOTE | 2016-11-15 22:42 | ABG ---
DateTimeAnalyzed 22:39:00 -_ pH ____7.180 - 7.350 7.450 pCO2 ___33.1__ -mmHg 35.0 45.0 pO2 131 -mmHg 69.0 116 HCO3- ___11.9__ -mmol/L 22.0 26.0 ABE __-15.1__ -mmol/L -2.0 2.0 tHb ____9.5__ -g/dL O2Hb ___96.2__ -% COHb ____0.6__ -% MetHb ____0.9__ -% sO2 ___97.7__ -% 25.0 FIO2 ___80.0__ -% PEEP ___12.0__ -cmH2O Set_RR ___24.0__ -b/min Vt __450.0__ -L Drawn By MK - Spontaneous_RR ___24.0__ -b/min Oxygen Device 1 VENTILATOR - Notified By MK - Notified Whom _Fuimaono - B 760 -mmHg tO2 ___13.1__ -Vol% OrderingPhysicianInitials mf - Herve test N/A -
[2016-11-16] VITALS (8 sets, daily range): BP systolic 92–127; BP diastolic 50–91; PULSE 88–109; RESP 24; O2SAT 94–98
[2016-11-16] MEDS: Chlorhexidine 0.12% 15 mL Oral Solution MT SCH ×4 (00:13→12:41)
[2016-11-16] MEDS: Heparin 5,000 Unit/mL Inj SUBQ SCH (00:13)
[2016-11-16] MEDS: Vasopressin Inj 20 UNIT in 0.9% Sodium Chloride 100 ML IV SCH ×2 (00:21→09:49)
[2016-11-16] MEDS: Dexmedetomidine 400 mCg/100 mL 400 MCG in IV Premix 1 EACH IV SCH ×3 (00:25→12:41)
[2016-11-16] MEDS: Norepineph 8,000 mCg/250 mL NS 8,000 MCG in IV Premix 1 EACH IV SCH ×3 (00:59→09:36)
[2016-11-16] MEDS: Sodium Bicarb 8.4% Inj 150 MEQ in Dextrose 5% 1,000 ML IV SCH ×3 (01:00→12:30)
--- NOTE | 2016-11-16 01:00 | ABG ---
DateTimeAnalyzed 00:57:00 -_ pH ____7.200 - 7.350 7.450 pCO2 ___32.6__ -mmHg 35.0 45.0 pO2 117 -mmHg 69.0 116 HCO3- ___12.2__ -mmol/L 22.0 26.0 ABE __-14.4__ -mmol/L -2.0 2.0 tHb ____9.4__ -g/dL O2Hb ___96.1__ -% COHb ____0.6__ -% MetHb ____1.0__ -% sO2 ___97.7__ -% 25.0 FIO2 ___70.0__ -% PEEP ___12.0__ -cmH2O Set_RR ___24.0__ -b/min Vt __450.0__ -L Drawn By MK - Date/Time Notified____ 00:59:00 -_ Spontaneous_RR ___24.0__ -b/min Oxygen Device 1 VENTILATOR - Notified By MK - Notified Whom Dr Fuimaono - B 759 -mmHg tO2 ___12.9__ -Vol% OrderingPhysicianInitials mf - Herve test N/A -
[2016-11-16] MEDS: 0.9% Sodium Chloride 1,000 ML IV SCH ×3 (01:16→11:40)
--- NOTE | 2016-11-16 01:22 | NUR ---
P) Respiratory//Wound vac/code status Pt. worsening throughout shift, R foot purple, L foot mottled, hands becoming very edematous and fingers purpling. Labs and ABG's discussed with both Dr. Beasley and Dr. Montes De Oca, per Dr. Montes De Oca contacted pt.'s family and explained that with multiple organ failure that coding pt. CPR and shocks etc. is not a benefit for him, agreed and made pt,. no code. Father Cain contacted and came in and prayed with family and gave pt. last rights. wound vac putting out copious sero-sanguinous drainage. Pt. had been double stacking earlier with a respiratory rate in the bonnie to upper 30's, tried both bolus's of precedex and fentanyl without results, 1mg ativan given x2 with good results but lasted only [address] Beasley started pt. on nimbex gtt. effects explained to family. Continuing close monitoring and one to one care, family at bedside, occupancy rules relaxed as pt. seems to be dying.
[2016-11-16] MEDS: Pantoprazole 8 mg/Hr Infusion IV SCH ×4 (02:37→12:40)
[2016-11-16] MEDS: Insulin Human REGular 100 Units/100 mL NS IV SCH ×2 (04:22)
--- NOTE | 2016-11-16 04:57 | ABG ---
DateTimeAnalyzed 04:54:00 -_ pH ____7.267 - 7.350 7.450 pCO2 ___30.8__ -mmHg 35.0 45.0 pO2 119 -mmHg 69.0 116 HCO3- ___13.6__ -mmol/L 22.0 26.0 ABE __-11.9__ -mmol/L -2.0 2.0 tHb ____9.3__ -g/dL O2Hb ___96.4__ -% COHb ____0.6__ -% MetHb ____0.9__ -% sO2 ___97.9__ -% 25.0 FIO2 ___70.0__ -% PEEP ___12.0__ -cmH2O Set_RR ___24.0__ -b/min Vt __450.0__ -L Drawn By MK - Spontaneous_RR ___24.0__ -b/min Oxygen Device 1 VENTILATOR - Notified Whom _Fuimaono - B 755 -mmHg tO2 ___12.8__ -Vol% OrderingPhysicianInitials mf - Herve test N/A -
[2016-11-16 06:16] LABS: BASOPHILS % (AUTO) 0.2 % (0-3); EOSINOPHILS % (AUTO) 0 % (0-5); MONOCYTES % (AUTO) 5.6 % (4-12); Mean Corpuscular Volume 78.1 fL (81-100); NEUTROPHILS % (AUTO) 77.6 % (40-74); Platelet Count 42 bil/L (150-400)
[2016-11-16 06:36] LABS: Magnesium 1.6 mg/dL (1.6-2.6); Phosphorus 8.4 mg/dL (2.5-4.9)
--- NOTE | 2016-11-16 06:43 | NUR ---
Pt. had serous drainage under thighs and bloody drainage under bottom, appears to have come from rectum. Will report to
[2016-11-16 07:03] LABS: INR 3.61 ratio
[2016-11-16] MEDS: Albumin 25% 100 ML IV SCH ×3 (09:04→10:44)
--- NOTE | 2016-11-16 09:14 | PCM.PNMED ---
Subjective Date of Service Nov 16, 2016 Subjective GASTROENTEROLOGY PROGRESS NOTE Patient seen at bedside in CCU, remains intubated, sedated, and receiving multiple pressor agents. Prognosis remains poor. Non-responsive secondary to medications. Reviewing chart notes, patient has received Last Rights, and code status was changed from full code to DNR/DNI. Exam Vital Signs Vital Sign - Last Date Time Temp Pulse Resp B/P Pulse Ox O2 Delivery O2 Flow Rate FiO2 11/16/16 08:27 90 113/91 97 70 11/16/16 04:00 37.4 24 Mechanical Ventilator 11/12/16 11:49 15 Intake and Output 11/15/16 11/15/16 11/16/16 Cumulative From/Thru 15:00 23:00 07:00 11/12/16 07:39 - 11/16/16 06:34 Intake Total 3081 ml 3148 ml 33809 ml Output Total 1500 ml 1456 ml 2865 ml 9033 ml Balance -1500 ml 1625 ml 283 ml 55685 ml Intake Oral 180 ml IV Total 3081 ml 2878 ml 58078 ml TPN/PPN 270 ml 270 ml Packed Cells 1230 ml FFP 820 ml Tube Irrigant 80 ml Output Urine Total 31 ml 40 ml 683 ml Gastric Drainage Total 25 ml 25 ml 1075 ml Drainage Total 1400 ml 2800 ml 5325 ml Ultrafiltrate 1500 ml 1500 ml Estimated Blood Loss 50 ml Other 400 ml # Bowel Movements 0 Exam General: Intubated and sedated; no acute distress; receiving bedside dialysis at time of evaluation HEENT: Atraumatic; sclera anicteric; ETT in place Neck: Trachea midline Cardiac: Tachycardic rate at approx 94 at time of evaluation Respiratory: Adequate air flow all golden; bibasilar faint coarse sounds; mechanical ventilatory support Abdomen: Soft, nondistended; cannot accurately assess for pain secondary to sedation; linear vertical incision noted mid-abdomen with wound vac in place, borders free of erythema, no leakage noted; wound vac output appears serosanguinous Extremities: BLUE edematous; RLE remains cool distally from toes to ankle with coloration change to dusky blue, dorsalis pulse not manually palpable; LLE now has dusky digits, extending to MTP joints Skin: Warm and dry Neuro: Cannot assess secondary to sedation Psych: Cannot assess secondary to sedation Lab and Diagnostics Result Diagram: 11/16/16 0611/16/16 0600 Microbiology Sputum culture grew light normal kathy, MRSA screen negative, respiratory viral PCR negative, Streptococcus pneumoniae and legionella urine antigens negative, and blood culture 2 has no growth after 2 days. . X-Rays, CTs and MRIs X-RAY CHEST ONE VIEW, PORTABLE IMPRESSION: Bibasilar atelectasis versus aspiration or pneumonia. Correlate clinically. Dictated by: Mendez Meléndez RRA Interpreted: Rachel Martinez MD on 11/14/2016 at 9:01 X-RAY CHEST ONE VIEW, PORTABLE Lungs and pleura: No pleural effusions or pneumothorax. Evaluation limited due to patient rotation. There are a few linear medial left retrocardiac opacities likely representing atelectasis. IMPRESSION: 1. Linear left retrocardiac opacities likely represent atelectasis. Dictated by: Raudel Chester M.D. on 11/12/2016 at 11:06 CT CHEST, ABDOMEN AND PELVIS WITHOUT CONTRAST IMPRESSION: 1. No intra-abdominal or intrathoracic hematoma identified. 2. Marked irregular concentric wall thickening of the bladder with heterogeneous bladder contents and partial calcification of the bladder wall. The findings may represent sequelae of cystitis or bladder mass. Recommend correlation with clinical history and cystoscopy if indicated. 3. Small 3-4 mm right upper lobe nodule. A followup study may be performed in 12 months to demonstrate stability if indicated. Dictated by: Raudel Chester M.D. on 11/12/2016 at 12:37 US ABDOMEN, LIMITED IMPRESSION: Limited examination demonstrating no evidence of cholecystitis. Dictated by: Camilla Klein M.D. on 11/13/2016 at 10:39 . 12-lead ECG EKG per admission note: Sinus tachycardia 106. Normal conduction intervals. [address] depression V2-V6. Q wave III, but not II, aVF. . Cardiac Echo Impressions Echocardiogram Interpretation Summary: Normal sinus rhythm. Normal LV size, wall thickness;l there is basal inferior wall akinesis; otherwise normal wall motion. LV is D shaped in both systole and diastole c/w RV pressure overload. Estimated PA systolic pressure is 40 mm Hg assuming RA pressure of 10 mm Hg. RV is severely dilated with severely reduced RV function. No prior study is available for comparison. Reading Physician:05:15 PM . Assessment & Plan GASTROENTEROLOGY PROGRESS NOTE Mr. 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 History is obtained from chart review, as patient is intubated and sedated. Chart review indicates that Mr. Fields may have had a similar episode a few months ago, but did not seek medical attention. No known history of chronic NSAID use, family reported beer ingestion but not in excess, and no known history of previous EGD, PUD, or cirrhosis. Assessments - Elevated LFTs likely secondary to ongoing sepsis vs ischemic hepatitis due to hypoperfusion - Hematemesis and suspected melena likely secondary to UGIB of unknown etiology , suspect ulceration - Small bowel ischemia with perforation s/p laparotomy with small bowel resection and wound vac placement - Acute anemia likely secondary to critical surgical interventions; transfused 2U pRBC with appropriate response Recs: - Continue supportive tx per primary/ICU/surgical teams - Hold off EGD; patient remains too critically ill to proceed - Continue protonix gtt - Monitor HH and transfuse per primary team prn - Continue palliative care discussions as appropriate - Prognosis: Poor - Patient has multiple comorbidities, and requires continued CCU care - No need for emergent endoscopy at this time; we will continue to monitor - Await discussions with primary team and palliative to determine course of care Thank you for this consult, we will follow along at this time until further decisions are made to transition to comfort care vs continuing care. Patient remains in critical condition, requiring multiple pressor agents to maintain BP , increased WBC, and multiple sites blood clot. We will observe peripherally at this time. Total time: 20 minutes GI Prophylaxis: Proton Pump Inhibitor VTE Prophylaxis: SCDs VTE Mechanical Devices: Intermittant Pneumatic CD Resuscitation Status: CPR: Attempt Resuscitation Anna Hinojosa DO Nov 16, 2016 08:38
--- NOTE | 2016-11-16 09:20 | PROG NOTE ---
[address] [address] PROGRESS NOTE PATIENT: RAMA NAVARRO : 1950 MR#: [id number] ADMIT: 11/12/2016 JOB ID: [id number] DATE: 11/16/2016 INFECTIOUS DISEASE FOLLOW UP NOTE: REASON FOR FOLLOWUP: Multiorgan system failure secondary to infarcted small bowel as well as ischemic lower extremities. INTERVAL HISTORY: Overnight, the patient has remained super critically ill. He has continued to require high doses of vasopressor agents, albeit not quite as high as yesterday, with minimal urine output and ongoing respiratory, renal and hepatic failure. He is currently paralyzed and ventilated with 70% FiO2 and 12 of PEEP. As noted, he is on vasopressor and norepinephrine and the norepinephrine is about 20 mcg per minute down from 55 mcg per minute yesterday, but still a formidable dose. Urine output continues to be essentially zero. The patient has experienced some rectal bleeding overnight. His jaundice continues to deepen. Given he is intubated, paralyzed, no history is available from the patient and he is completely unresponsive, of course, this case was discussed extensively with the bedside nurse, dialysis nurse and family. PHYSICAL EXAMINATION: The patient remains critically ill. Paralyzed and intubated in the ICU. He has been afebrile overnight. Temperature currently 37.4. His blood pressure is about 120 systolic and, of course, that is requiring vasopressor agents as mentioned. Pulse approximately 95. He is on 70% and 12 as mentioned. Urine output is negligible. The patient is deeply jaundiced reflecting his bilirubin of 14. Conjunctivae, of course, with tremendous scleral icterus. Oral endotracheal tube, orogastric tube in good position. The patient's lines include a right femoral A-line, a left femoral vein dialysis catheter as well as a left upper extremity PICC line. He also has, of course, a Lisa catheter and he has a huge abdominal Wound VAC which covers an open abdomen. There is a great deal of drainage from the open abdomen as one would expect. The patient's neck without notable abnormalities. His lungs with coarse breath sounds at the bases bilaterally. Cardiac tones: Regular rate and rhythm at 90. No significant new murmurs appreciated. The open abdomen is covered by the Wound VAC. The remainder the bowel is silent. His scrotum is distended about twofold overnight and now has scrotomegaly without scrotal cellulitis or scrotal breakdown. Lisa catheter is present. Lower extremities are cool to cold with the right being worse than the left. LABORATORIES: Include white count stable at 26,000 with left shift to 77% polys, 10% nucleated red cells suggest ongoing tremendous bone marrow stimulation. Lactic acid continues to slowly rise now 12.2, bicarbonate 14, creatinine 3.76 and, of course, he is being actively dialyzed. Liver functions still worse. AST 2800, ALT 1400, alk phos normal. Albumin 2.7. Our last procalcitonin two days ago was 80 and I am not certain that trending that will be of much value. Hep B, hep C negative. Micro studies remain negative. We have negative blood cultures, negative sputum, negative urine and negative respiratory PCR. IMAGING: Imaging has been extensive in the past few days. The ultrasound of the right lower extremity shows extensive clot from the hip to the calf to the knee, which serves to explain at least part of what is going on with his right lower extremity. Today's chest x-ray was reviewed and is reasonably clear actually with some haziness in the lower lobes bilaterally and a bit of what appears to be atelectasis, more pronounced on the right. IMPRESSION: This seems to be an almost insurmountable case of a gentleman who has refractory shock, ventilator dependent respiratory failure, ongoing renal failure, hepatic failure, massive DVT involving the ischemic right lower extremity which may be due to phlegmasia or outright arterial insufficiency. At this point, everything seems somewhat worse than yesterday despite the heroic resection of most of his small bowel by Dr. Grant. The patient is probably covered with appropriate antibiotics which were selected on the basis of activity against likely pathogens arising from the small bowel as well as the ischemic limb, but this is obviously not primarily an infectious disease problem. RECOMMENDATIONS: 1. Will continue with the antibiotics which include micafungin, meropenem and levofloxacin. These are all appropriately adjusted for renal and hepatic failure when indicated. 2. I will continue to follow the multiple pending cultures and studies. 3. This case discussed with the ICU team. 4. I see little hope for the patient's survival at this point. 5. We discussed the situation in detail with the patient's family in both [place] and [place].
--- NOTE | 2016-11-16 09:28 | DRSVH ---
PROCEDURE: US VEINOUS LEG DUPLEX UNILATERAL, RIGHT INDICATIONS: right foot ischemia TECHNIQUE: Real-time imaging, as well as color and pulse Doppler interrogation, were performed of the lower extr emity deep veins from the inguinal ligament to the popliteal fossa. COMPARISON: None. FINDINGS: Nonocclusive deep venous thrombosis present within the common femoral, superficial femoral and right popliteal veins. Moderate edema is present. IMPRESSION: Nonocclusive right lower extremity deep venous thrombosis. [facility] [place] [place] critical care nurse given results by the lining strap closer at 0740 hrs. 11/16/2016. Dictated by: Mendez JOVEL Interpreted: Rachel Martinez MD on 11/16/2016 at 9:26 Transcribed by: GAYATHRI on 11/16/2016 at 9:28 Approved by: Rachel Martinez MD, PhD on 11/16/2016 at 16:41
--- NOTE | 2016-11-16 09:30 | DRSVH ---
PROCEDURE: US DUPLEX DOPPLER UNILATERAL LEG ARTERIES, RIGHT INDICATIONS: right foot ischemia TECHNIQUE: Color and pulse Doppler interrogation was performed of the right lower extremity arterial system, wit h image documentation. COMPARISON: None. FINDINGS: Vascular Ultrasound Procedure Report Findings(Artery of Lower Extremity)(Right) Common Femoral Artery(Distal) Velocity: 91 cm/s Profunda Femoris Artery(Proximal) Velocity: 53.70 cm/s Superficial Femoral Artery(Proximal) Velocity: 70.30 cm/s Superficial Femoral Artery(Mid-longitudinal) Velocity: 46.70 cm/s Superficial Femoral Artery(Distal) Velocity: 51.20 cm/s Popliteal Artery(Mid-longitudinal) Velocity: 55.80 cm/s Posterior Tibial Artery(Distal) Velocity: 49 cm/s Dorsalis Pedis Artery(Distal) Velocity: 20 cm/s Greyscale findings: Minimal plaque. IMPRESSION: No hemodynamically significant peripheral arterial stenosis. Dictated by: Mendez Meléndez [facility] Interpreted: Rachel Martinez MD on 11/16/2016 at 9:28 Transcribed by: GAYATHRI on 11/16/2016 at 9:30 Approved by: Rachel Martinez MD, PhD on 11/16/2016 at 16:41
[2016-11-16] MEDS ORDERED: Heparin 5,000 Unit/mL Inj IVPUSH PRN (10:05)
[2016-11-16] MEDS ORDERED: Heparin 25K Unit/500mL 0.45 NS 25,000 UNIT in IV Premix 1 EACH IV SCH (10:05)
[2016-11-16 10:09] LABS: BASOPHILS % (AUTO) 0.3 % (0-3); EOSINOPHILS % (AUTO) 0.1 % (0-5); MONOCYTES % (AUTO) 4.2 % (4-12); Mean Corpuscular Hemoglobin 23.1 pg (27.0-35.0); Mean Corpuscular Volume 75.9 fL (81-100); Platelet Count 42 bil/L (150-400)
[2016-11-16 10:33] LABS: INR 3.53 ratio
--- NOTE | 2016-11-16 10:33 | PCM.PNNEPH ---
Subjective Date of Service Nov 16, 2016 Subjective Patient's overall condition continues to deteriorate. Although he tolerated dialysis quite well yesterday for than evening his blood pressure continued to drop despite pressors and fluids and his lactic acid has continued to increase. His liver function studies have also markedly increased. Last 24 hours he has had 13 189 in and 4255 and GI drainage. He remains and dark. His white count is increasing to a level of 26.2 with a hemoglobin of 8.7. His sodium is 136, potassium 5.1, chloride 93, bicarbonate 14, BUN and creatinine were 44 and 3.76. His lactic acid this morning was 12.2. Exam Vital Signs Vital Sign - Last Date Time Temp Pulse Resp B/P Pulse Ox O2 Delivery O2 Flow Rate FiO2 11/16/16 08:27 90 113/91 97 70 11/16/16 04:00 37.4 24 Mechanical Ventilator 11/12/16 11:49 15 Intake and Output 11/15/16 11/15/16 11/16/16 Cumulative From/Thru 15:00 23:00 07:00 11/12/16 07:39 - 11/16/16 06:34 Intake Total 3081 ml 3148 ml 30994 ml Output Total 1500 ml 1456 ml 2865 ml 9033 ml Balance -1500 ml 1625 ml 283 ml 95400 ml Intake Oral 180 ml IV Total 3081 ml 2878 ml 31325 ml TPN/PPN 270 ml 270 ml Packed Cells 1230 ml FFP 820 ml Tube Irrigant 80 ml Output Urine Total 31 ml 40 ml 683 ml Gastric Drainage Total 25 ml 25 ml 1075 ml Drainage Total 1400 ml 2800 ml 5325 ml Ultrafiltrate 1500 ml 1500 ml Estimated Blood Loss 50 ml Other 400 ml # Bowel Movements 0 Exam The patient remained sedated and on a ventilator. He is not having any spontaneous respirations. HEENT examination is remarkable for some periorbital edema, scleral icterus and pale sclera. Lungs showed some scattered rhonchi with diminished breath sounds bilaterally. Heart is regular and tachycardic but is somewhat distant due to his increased chest diameter and ventilation. Abdomen is semi-formed with wound dressings in place. His back continues to drain a considerable amount of gastric fluid. There are no bowel sounds noted. He has generalized anasarca. All 4 distal extremities are increasingly poor by mouth and discolored. There is no evidence of any capillary refill Lab and Diagnostics Result Diagram: 11/16/16 0945 11/16/16 0600 Microbiology Sputum culture grew light normal kathy, MRSA screen negative, respiratory viral PCR negative, Streptococcus pneumoniae and legionella urine antigens negative, and blood culture 2 has no growth after 2 days. . X-Rays, CTs and MRIs X-RAY CHEST ONE VIEW, PORTABLE IMPRESSION: Bibasilar atelectasis versus aspiration or pneumonia. Correlate clinically. Dictated by: Mendez Meléndez RRA Interpreted: Rachel Martinez MD on 11/14/2016 at 9:01 X-RAY CHEST ONE VIEW, PORTABLE Lungs and pleura: No pleural effusions or pneumothorax. Evaluation limited due to patient rotation. There are a few linear medial left retrocardiac opacities likely representing atelectasis. IMPRESSION: 1. Linear left retrocardiac opacities likely represent atelectasis. Dictated by: Raudel Chester M.D. on 11/12/2016 at 11:06 CT CHEST, ABDOMEN AND PELVIS WITHOUT CONTRAST IMPRESSION: 1. No intra-abdominal or intrathoracic hematoma identified. 2. Marked irregular concentric wall thickening of the bladder with heterogeneous bladder contents and partial calcification of the bladder wall. The findings may represent sequelae of cystitis or bladder mass. Recommend correlation with clinical history and cystoscopy if indicated. 3. Small 3-4 mm right upper lobe nodule. A followup study may be performed in 12 months to demonstrate stability if indicated. Dictated by: Raudel Chester M.D. on 11/12/2016 at 12:37 US ABDOMEN, LIMITED IMPRESSION: Limited examination demonstrating no evidence of cholecystitis. Dictated by: Camilla Klein M.D. on 11/13/2016 at 10:39 . 12-lead ECG EKG per admission note: Sinus tachycardia 106. Normal conduction intervals. [address] depression V2-V6. Q wave III, but not II, aVF. . Cardiac Echo Impressions Echocardiogram Interpretation Summary: Normal sinus rhythm. Normal LV size, wall thickness;l there is basal inferior wall akinesis; otherwise normal wall motion. LV is D shaped in both systole and diastole c/w RV pressure overload. Estimated PA systolic pressure is 40 mm Hg assuming RA pressure of 10 mm Hg. RV is severely dilated with severely reduced RV function. No prior study is available for comparison. Reading Physician:05:15 PM . Plan Impression Impression #1 acute tubular necrosis secondary to multisystem organ failure #2 lactic acidosis secondary to generalized tissue and limb ischemia along with an pared hepatic clearance. Recommendations #1 ahead and dialyze him today for 4 hours on an F-16 dialyzer, 2 potassium bath, and a 40 bicarbonate. will be given and will try to take 3-4 l of fluid off as tolerated. i will also give him several doses of albumin. at this point feels that the patient's condition is terminal. following dialysis i feel we should seriously consider comfort care measures only. Raul Marin DO Nov 16, 2016 10:33
--- NOTE | 2016-11-16 10:35 | DRSVH ---
PROCEDURE: X-RAY CHEST ONE VIEW ([id number]) INDICATIONS: vent TECHNIQUE: One view of the chest was acquired. COMPARISON: [facility], [facility], XR CHEST 1VW, 11/15/2016, 5:03. FINDINGS: Surgical changes and devices: Stable position of ETT, left PICC and nasogastric tube. Lungs and pleura: No pneumothorax. Bibasilar airspace opacities present, left side greater than righ t similar previous examination. Atelectasis within the mid right lung. Trace left pleural effusion redemonstrated. Mediastinum: Mediastinal contours appear normal. Heart size is normal. Bones and chest wall: No suspicious bony lesions. Overlying soft tissues appear unremarkable. IMPRESSION: 1. Persistent bibasilar airspace opacities, left greater than right. 2. Subsegmental atelectasis present within the mid right lung. Dictated by: Mendez Meléndez A Interpreted: Liz Talley MD on 11/16/2016 at 10:33 Transcribed by: ROSAS on 11/16/2016 at 10:35 Approved by: Liz Talley M.D. on 11/16/2016 at 12:07
[2016-11-16 10:40] LABS: D-Dimer 22.41 mg/L FEU (<0.50)
--- NOTE | 2016-11-16 11:21 | PROG NOTE ---
[address] [address] PROGRESS NOTE PATIENT: RAMA NAVARRO : 1950 MR#: [id number] ADMIT: 11/12/2016 JOB ID: [id number] DATE: 11/16/2016 PULMONARY CRITICAL CARE PROGRESS NOTE: The patient is a 65-year-old man with prior history of stroke with right-sided hemiparesis, originally from [place] who presented with severe anemia and multiorgan failure, shock. The patient was seen and evaluated with resident physician, Nicolasa Sarmiento. Please refer to her separate detailed note for additional information. INTERVAL HISTORY: The patient's condition worsened yesterday evening with increasing lactate, worsening acidosis and hypotension. Pressors and norepinephrine was up from 0.3 to 0.7. We started a bicarbonate drip yesterday evening because of this and also made adjustments to his ventilator including adding Nimbex to prevent breath stacking which was adversely affecting his ventilation. With all that, his norepinephrine is now down to 0.3. He is back on dialysis this morning as well. REVIEW OF SYSTEMS: Unable to obtain as the patient is intubated. PHYSICAL EXAMINATION: Vital signs reviewed. T-max is 37.6. He is on 70% FiO2 with PEEP of 12 cm. ASSESSMENT: Intubated, sedated, unresponsive abdomen open with Wound VAC, distended. Extremities: Right greater than left extremity looks cyanotic, dusky with no pulses. LABORATORIES: Reviewed. WBC 21.8 from 26 yesterday. Hemoglobin 9.2, platelets 42. INR is up to 3.61 this morning. Chemistry notable for potassium of 5.1, bicarbonate of 14, creatinine 3.76, BUN 44, calcium 5.9. LFTs are rising in the 7159-6920 range today as is bilirubin. Alk phos is pretty stable. Lactate is up to 12. Chest x-ray shows patchy bilateral infiltrates with a small left pleural effusion. ET tube is appropriate. Arterial blood gas shows pH of 7.26, pCO2 of 30, pO2 of 119, bicarbonate of 13.6. This is improved compared to last night when he was more acidemic. ASSESSMENT AND RECOMMENDATIONS: 1. Septic shock. 2. Severe lactic acidosis from multiple sources. 3. Acute hypoxic respiratory failure on mechanical ventilation since November 12. 4. Ischemic bowel with perforation status post resection and ileostomy November 14. 5. Acute renal failure on hemodialysis since November 15. 6. Transaminitis and acute shock liver with worsening liver injury. 7. Upper gastrointestinal bleed with severe blood loss anemia. 8. Right lower extremity deep venous thrombophlebitis. 9. Ischemic extremities, both right and left lower. This unfortunate 65-year-old gentleman with multiorgan failure is rapidly worsening despite aggressive medical therapy. He was found to have a DVT on his ultrasound yesterday and we are yet to start anticoagulation because of severe coagulopathy but I think we have no other alternative at this point. He appears to be in DIC based on severe lab abnormalities but also his liver failure is likely contributing. Bicarbonate drip was stopped and he has been on dialysis with slight improvement in pressor requirement but his lactate will continue to rise because of liver failure, ischemic limbs and ischemic gut and there is really not much else we can do to help this. Abdomen remains open with a Wound VAC in place. Antibiotics per Infectious Disease are Levaquin, meropenem and micafungin. PPI drip to be continued. As discussed above we are going to be starting a heparin drip. The family was strongly encouraged to change the patient's code status to DNR and he is currently DNR in the event of a cardiac arrest. CRITICAL CARE TIME: 60 minutes.
--- NOTE | 2016-11-16 11:40 | PCM.PHAPRO ---
Progress TPN PARENTERAL NUTRITION ORDERS 2 16-Nov-16 Standard Hang Time: 2100 Substrates Total kcal: 710 AMINO ACIDS 50 g DEXTROSE 150 g Total Volume (mL): 700 LIPIDS g Sterile Water for Injection QS mL To Infuse Over (hrs): 24 Total Volume 700 mL At at a rate of (mL/hr): 29 Additives Sodium Chloride 20 mEq "typical" daily requirements Sodium Acetate 10 mEq Sodium 50-120mEq Potassium Chloride mEq Potassium 60-120mEq Potassium Phosphate mEq Phosphate 20-40mEq Calcium Gluconate 6 mEq Magnesium 8-32mEq Magnesium Sulfate 8 mEq Calcium 9-22mEq Acetate* 80-120mEq Chloride* 80-120mEq Regular Insulin units *Depending on acid-base status Famotidine mg Multivitamins 1 std dose Insulin Regimen Trace Elements 1 std dose none Thiamine mg Regular Low Intensity Subcut Folic Acid mg Regular Medium Intensity Subcut Ascorbic Acid mg Regular High Intensity Subcut Regular Insulin Infusion Other: Silver Payne Pharm D Nov 16, 2016 11:40
[2016-11-16] MEDS: Propofol Inj 1,000,000 MCG in IV Premix 1 EACH IV SCH (12:15)
--- NOTE | 2016-11-16 12:16 | NUR ---
Dialysis note Second HD tx. 4 hrs. 3000ml net UF removed. See DTR for complete vitals data. Blood pressure support titrated per primary RN to keep MAP above 65. Pt tolerated UF rate. Catheter exit site care/dsg changed x2 for pt oozing copious amounts of serous fluid. Dwelled with 1000/1 U heparin and secured to thigh
[2016-11-16] MEDS: Micafungin Inj 150 MG in 0.9% Sodium Chloride 100 ML IV SCH (12:25)
[2016-11-16] MEDS: fentaNYL 2,500 mCg/250 mL 2,500 MCG in IV Premix 1 EACH IV SCH (12:30)
--- NOTE | 2016-11-16 13:05 | PCM.PNSURG ---
Subjective Date of Service: Nov 16, 2016 Date of Service: Nov 16, 2016 Visit Information: Reason for Visit UGIB Surgery/Surgery Date Post-Op Day # 2 Date of Admission: Nov 12, 2016 at 13:08 Hospital Day # 5 Subjective: Intubated. Unable to answer questions. Objective Objective PHYSICAL EXAMINATION: On examination, he remains intubated, sedated. His incision is opened. Wound VAC is in place. 500cc out this shift. Vital Sign- Last 8 Hours Date Time Temp Pulse Resp B/P Pulse Ox O2 Delivery O2 Flow Rate FiO2 11/16/16 11:36 90 113/91 98 70 11/16/16 08:27 90 113/91 97 70 11/16/16 08:00 Ventilator 11/16/16 08:00 36.4 90 24 92/50 96 Mechanical Ventilator 70 11/16/16 04:50 98 126/63 97 70 Intake and Output- Last 8 Hour 11/16/16 Cumulative From/Thru 07:00 11/12/16 07:39 - 11/16/16 06:34 Intake Total 3148 ml 06507 ml Output Total 2865 ml 9033 ml Balance 283 ml 84094 ml Intake Oral 180 ml IV Total 2878 ml 54901 ml TPN/PPN 270 ml 270 ml Packed Cells 1230 ml FFP 820 ml Tube Irrigant 80 ml Output Urine Total 40 ml 683 ml Gastric Drainage Total 25 ml 1075 ml Drainage Total 2800 ml 5325 ml Ultrafiltrate 1500 ml Estimated Blood Loss 50 ml Other 400 ml # Bowel Movements 0 Heart: Regular Rate/Rhythm Chest: Clear to auscultation, intubated. Few expiratory wheezes at left lung field. Abdomen: Soft (wound VAC in place) SURGICAL WOUND : Wound Location/Description Midline abdominal incision open with ABThera dressing in place. 500mL output this shift. Wound General Appearence: Wound Vac Dressing & Drainage Status: No Purulent Drainage, No Odor Extremities: Distal Pulses Absent (right lower extremity) Result Diagram: 11/16/16 0945 11/16/16 0600 Assessment & Plan Impression Post operative day 2 status post extensive small bowel resection Problems: Plan Surgery will tentatively schedule him for return to the operating room on to change his ABThera if clinically stable at that time. Will continue to monitor. VTE Prophylaxis: SCDs Resuscitation Status: CPR: Attempt Resuscitation Jose Barker PA-C Nov 16, 2016 12:50
[2016-11-16] MEDS: Meropenem Inj 500 MG in 0.9% Sodium Chloride 50 ML IV SCH (14:08)
[2016-11-16] MEDS: DOBUTamine 500 mg/250 D5W 500,000 MCG in IV Premix 1 EACH IV SCH (14:22)
[2016-11-16] MEDS ORDERED: LORazepam 100 mg/100 mL NS 100 MG in IV Premix 1 EACH IV SCH (14:30)
[2016-11-16] MEDS ORDERED: Atropine 1% 5 mL Ophthalmic Solution PO PRN (14:30)
[2016-11-16] MEDS ORDERED: Glycopyrrolate 0.2 MG/ML 1mL Inj IVPUSH PRN (14:35)
[2016-11-16] MEDS ORDERED: LORazepam Inj 100 MG in 0.9% Sodium Chloride 100 ML IV SCH (14:47)
--- NOTE | 2016-11-16 14:47 | PCM.PNMED ---
Subjective Date of Service Nov 16, 2016 Subjective Intensive/Pulmonology Progress Note: Attending Dr. Gale Fields is a 65-year-old male with a past medical history significant for CVA with residual right-sided hemiparesis who presented to [facility] Emergency Department with acute GI bleed and severe blood loss anemia, acute hypoxemic respiratory failure, and profound metabolic acidosis, and multifactorial shock. He was found to have abdominal compartment syndrome secondary to ischemic small bowel with perforation now status post small bowel resection, oliguric acute renal failure requiring hemodialysis, bibasilar pneumonia, and transaminitis secondary to shock liver. Hospital day #5. Overnight telemetry: Sinus rhythm/tachycardia, heart rate 90 to 110's, without ectopy. Overnight:The patient had increasing metabolic and lactic acidosis overnight and began to double stack his breaths and overbreathing the mechanical ventilator and therefore he was paralyzed with Nimbex. Subjective exam and review of systems is unobtainable as patient is intubated and sedated. . Exam Vital Signs Vital Sign - Last Date Time Temp Pulse Resp B/P Pulse Ox O2 Delivery O2 Flow Rate FiO2 11/16/16 11:36 90 113/91 98 70 11/16/16 08:00 Ventilator 11/16/16 08:00 36.4 24 11/12/16 11:49 15 Intake and Output 11/15/16 11/15/16 11/16/16 Cumulative From/Thru 15:00 23:00 07:00 11/12/16 07:39 - 11/16/16 06:34 Intake Total 3081 ml 3148 ml 43791 ml Output Total 1500 ml 1456 ml 2865 ml 9033 ml Balance -1500 ml 1625 ml 283 ml 44345 ml Intake Oral 180 ml IV Total 3081 ml 2878 ml 84717 ml TPN/PPN 270 ml 270 ml Packed Cells 1230 ml FFP 820 ml Tube Irrigant 80 ml Output Urine Total 31 ml 40 ml 683 ml Gastric Drainage Total 25 ml 25 ml 1075 ml Drainage Total 1400 ml 2800 ml 5325 ml Ultrafiltrate 1500 ml 1500 ml Estimated Blood Loss 50 ml Other 400 ml # Bowel Movements 0 Exam General: Older gentleman in no acute distress, intubated and sedated. HEENT: Normocephalic, atraumatic. External ears without defect. Pupils equal, round, and reactive to light. Anicteric sclerae and moist conjunctivae. Endotracheal tube in place Neck: No lymphadenopathy or thyromegaly. Cardiovascular: Regular rhythm, tachycardic, without murmurs, rubs, or gallops appreciated Pulmonary: Clear to auscultation bilaterally with no crackles, wheezes, or rhonchi. Normal respiratory effort with no use of accessory muscles. Abdomen: Open abdomen with ABThera dressing and woundvac in place. Extremities: Right lower extremity cold and cyanotic. Bilateral extremities without pulses. Anasarca. Skin: Normal temperature, turgor, and texture; no rash, ulcers, or subcutaneous nodules appreciated. Neurological: Intubated and sedated. Right-sided upper extremity contracture. Ventilator settings: PRVC. Tidal volume 400. Respiratory rate 24. FiO2 70%. PEEP 12.0. Peak 28. Plateau 24. ABG: PH 7.267. PCO2 30.8. PO2 119. HCO3 13.6. On PRVC with FiO2 70%, PEEP 12.0, and SPO2 of 97.9%. IV drips and Sedatives: Fentanyl 25 g/hr Precedex 0.7 g/kg/hr. Norepinephrine 0.20 g/kg/min and Vasopressin 0.04 g/kg/min. Nimbex 1 mL/hr. Insulin gtt 7.5 units/hr. PPI gtt. IV lines: Left PICC line, right femoral arterial line, left femoral temporary dialysis catheter. I&O: Net + [id number]. . IVs and Medications Medications Reviewed: Medications were reviewed in detail Lab and Diagnostics Item Value Date Time Lactic Acid Level 11.2 mmol/L *H 11/15/16 1930 Lactic Acid Level 12.2 mmol/L *H 11/16/16 06 Item Value Date Time Calcium Level 5.9 mg/dL *L 11/16/16 06 Phosphorus Level 8.4 mg/dL H 11/16/16 06 Magnesium Level 1.6 mg/dL 11/16/16 06 Total Bilirubin 13.9 mg/dL H 11/16/16 06 Aspartate Amino Transf (AST/SGOT) 2813 U/L H 11/16/16 06 Alanine Aminotransferase (ALT/SGPT) 1415 U/L H 11/16/16 06 Alkaline Phosphatase 116 U/L 11/16/16 06 Total Protein 4.1 g/dL L 11/16/16 06 Albumin 2.7 g/dL L 11/16/16 06 Prealbumin 6 mg/dL L 11/16/16 06 Result Diagram: 11/16/16 0945 11/16/16 06 Microbiology Sputum culture grew light normal kathy. MRSA screen negative. Respiratory viral PCR negative. Streptococcus pneumoniae and legionella urine antigens negative. Blood culture 2 has no growth after 2 days. . X-Rays, CTs and MRIs US DUPLEX DOPPLER UNILATERAL LEG ARTERIES, RIGHT IMPRESSION: No hemodynamically significant peripheral arterial stenosis. Dictated by: Mendez JOVEL Interpreted: Rachel Martinez MD on 11/16/2016 at 9:28 US VEINOUS LEG DUPLEX UNILATERAL, RIGHT IMPRESSION: Nonocclusive right lower extremity deep venous thrombosis. Dictated by: Mendez JOVEL Interpreted: Rachel Martinez MD on 11/16/2016 at 9:26 X-RAY CHEST ONE VIEW IMPRESSION: 1. Persistent bibasilar airspace opacities, left greater than right. 2. Subsegmental atelectasis present within the mid right lung. Dictated by: Mendez JOVEL Interpreted: Liz Talley MD on 11/16/2016 at 10:33 X-RAY CHEST ONE VIEW, PORTABLE Lungs and pleura: No pleural effusions or pneumothorax. Evaluation limited due to patient rotation. There are a few linear medial left retrocardiac opacities likely representing atelectasis. IMPRESSION: 1. Linear left retrocardiac opacities likely represent atelectasis. Dictated by: Raudel Chester M.D. on 11/12/2016 at 11:06 CT CHEST, ABDOMEN AND PELVIS WITHOUT CONTRAST IMPRESSION: 1. No intra-abdominal or intrathoracic hematoma identified. 2. Marked irregular concentric wall thickening of the bladder with heterogeneous bladder contents and partial calcification of the bladder wall. The findings may represent sequelae of cystitis or bladder mass. Recommend correlation with clinical history and cystoscopy if indicated. 3. Small 3-4 mm right upper lobe nodule. A followup study may be performed in 12 months to demonstrate stability if indicated. Dictated by: Raudel Chester M.D. on 11/12/2016 at 12:37 US ABDOMEN, LIMITED IMPRESSION: Limited examination demonstrating no evidence of cholecystitis. Dictated by: Camilla Klein M.D. on 11/13/2016 at 10:39 . 12-lead ECG EKG per admission note: Sinus tachycardia 106. Normal conduction intervals. [address] depression V2-V6. Q wave III, but not II, aVF. . Cardiac Echo Impressions Echocardiogram Interpretation Summary: Normal sinus rhythm. Normal LV size, wall thickness;l there is basal inferior wall akinesis; otherwise normal wall motion. LV is D shaped in both systole and diastole c/w RV pressure overload. Estimated PA systolic pressure is 40 mm Hg assuming RA pressure of 10 mm Hg. RV is severely dilated with severely reduced RV function. No prior study is available for comparison. Reading Physician:05:15 PM . Assessment & Plan Krzysztof Fields is a 65-year-old male with a past medical history significant for CVA with residual right-sided hemiparesis who presented to [facility] Emergency Department with acute GI bleed and severe blood loss anemia, acute hypoxemic respiratory failure, and profound metabolic acidosis, and multifactorial shock. He was found to have abdominal compartment syndrome secondary to ischemic small bowel with perforation now status post small bowel resection, oliguric acute renal failure requiring hemodialysis, bibasilar pneumonia, and transaminitis secondary to shock liver. Hospital day #4. Plan is for compassionate extubation at 16:30. 1. Acute refractory shock with multiorgan dysfunction, present on admission. Active. - Multifactorial and likely secondary to cardiogenic, hypovolemic, and septic shock contributing. - SIRS criteria met for sepsis include: Hypothermia (temperature 35.8C), tachypnea (respiratory rate 22), tachycardic (pulse 117) , with a leukocytosis of 18.8 and a lactic acid of 20.8 and unresponsive to IV fluid resuscitation. Suspected sources of infection and profound lactic acidosis include: probable pneumonia versus ischemic limb versus infarcted bowel versus GI infection versus SBP? - Early goal-directed therapy met including: IV fluid resuscitation and broad- spectrum antibiotic coverage. - Continue norepinephrine and vasopressin and titrate off as tolerated. 2. Acute ischemic small bowel with perforation now status post small bowel resection, present on admission. Active. - The patient presented profoundly anemic in severe refractory shock requiring 2 vasopressors with a profound persistent metabolic acidosis and lactic acidosis. - CT abdomen and pelvis without contrast on admission did not reveal any acute intraabdominal process. - Surgery was consulted for possible ischemic bowel and ischemic limb. The patient was taken to the OR and was found to have abdominal compartment syndrome secondary to ischemic small bowel with perforation now status post small bowel resection. - The patient has 3 ft of small bowel remaining and 6 inches of terminal ileum therefore if he survives the acute illness. - Patient left with open abdomen and ABThera dressing and wound vac in place. Surgery does not plan on further intervention at this point based on clinical status. - Continue meropenem, levofloxacin and micafungin per ID. - Infectious disease consulted and following. We appreciate their time and recommendations. 3. Acute hypoxemic respiratory failure, present on admission. Active. - Chest x-ray revealed bibasilar atelectasis versus aspiration or pneumonia, as above. - Continue ventilator with settings, as above. - Continue ABG daily for ventilator management. - Continue propofol and fentanyl for sedation, as above. - Procalcitonin highly elevated at 80.20 but in the setting of acute renal failure. - Sputum culture grew light normal kathy, MRSA screen negative, respiratory viral PCR negative, Streptococcus pneumoniae and legionella urine antigens negative, and blood culture 2 has no growth after 2 days. - Continue meropenem, levofloxacin, and micafungin per ID. 4. Acute NSTEMI, present on admission. Active. - Likely stress induced secondary to hypovolemia and shock. - Initial troponin 0.104. Trending when last checked. - EKG on admission showed ST depression in V2-V6 and a Q wave III, but not II, aVF.as above per admission note. - Echocardiogram shows preserved EF of 55-60% with severe RV dilatation and function, as above. 5. Right lower extremity non-obstructive DVT, acuity unknown, present on admission. Active. - Doppler venous revealed right lower extremity non-obstructive DVT. - Cannot intervene as patient is likely in DIC. 5. Acute upper gastrointestinal bleed, present admission. Active. - Patient reportedly had hematemesis. - Continue PPI. - Continue mechanical DVT prophylaxis in the setting of acute GI bleeding. 6. Acute severe blood loss anemia, present admission. Active. - Presented with severe anemia and hemoglobin of 4.6, hypotensive, and minimally responsive. - Received 4 units PRBC's. Received another 2 units PRBC and 4 units FFP postoperatively after small bowel resection. - Hemoglobin and hematocrit stable. Continue to monitor closely. 7. Acute oliguric renal failure, present on admission. Active. - Likely secondary to ATN from acute GI blood loss and hypotension/hypovolemia. - Creatinine 1.88 on admission. Creatinine continues to trend up and the patient is now oliguric. - Hyperkalemic at 6.4. Ordered Kayexalate 30 g 1. - Avoid nephrotoxic agents. - Continue to monitor urine output and renal function daily. - Nephrology consulted and following. We appreciate their time and recommendations. Plan for hemodialysis again morning. 8. Severe anion gap metabolic acidosis, present on admission. Active. - Initially presented with a with a pH of 6.9 with severe metabolic and lactic acidosis. Initial anion gap was 34 with highly elevated lactic acid at 20.8. - Discontinued fluids as there is evidence of fluid overload. - Restarted bicarbonate drip at 50 mL/hr in sterile water as patient was becoming more acidotic. - Treat underlying process which was ischemic bowel with rising lactic acidosis and now ischemic limb. 9. Transaminitis due to acute liver injury. - Likely secondary to shock liver. - LFTs slowly improving. - Avoid hepatotoxic agents. - Continue to monitor LFTs daily. 10. Prior history of known stroke with right-sided weakness. - Holding aspirin as patient presented with acute GI bleed. Continue statin. Disposition planning: Likely to pass today after compassionate extubation based on multiorgan system failure. . GI Prophylaxis: Proton Pump Inhibitor VTE Prophylaxis: SCDs VTE Mechanical Devices: Intermittant Pneumatic CD Resuscitation Status: CPR: Attempt Resuscitation Attending Statement I have seen and examined this patient with the resident physician. Vital signs , labs, imaging have been reviewed. I agree with the assessment and plan above. Please refer to my separately dictated progress note for any modifications to above. Martina Beasley M.D. Pulmonary and Critical Care medicine Pager [phone] Nicolasa Sarmiento DO Nov 16, 2016 12:36 Martina Beasley MD Nov 17, 2016 08:23
--- NOTE | 2016-11-16 15:29 | NUR ---
Palliative care note [facility] D/A: Met with pt family, including his spouse and Malia (spanish medical interpreter services) as well as Dr. Melgar. Meeting was to determine family decision in relation to earlier discussion with Dr. Melgar regarding pt extremely poor prognosis. Family has decided to extubate and requests to have this occur today at 4:[address] Melgar to make arrangements for medications/staff to be present at that time. He has explained to family that it is usually not recommended for family to be present during the actual removal of the tube but that they can come in after tube removed. He also noted that he did not envision pt living much past time of extubation but that pt will remain comfortable. Family sad and quite grieved and united in their decision to allow pt to . P: Palliative care to follow. Letha OLIVARES, [facility]
--- NOTE | 2016-11-16 15:59 | PCM.PALLBR ---
Palliative Care Recommendation 65-year-old gentleman, status post distant CVA with residua of weakness and aphasia, who presented with weakness and hematemesis and severe anemia, complicated by profound hypotension with subsequent multiple organ system failure. Underwent laparotomy on 11/14/2016 with finding of ischemic small bowel with multiple perforations, requiring removal of most of his small intestine. Remains ventilated, on multiple pressor support. Palliative medicine consult to assist patient's family in determination of goals of care. After lengthy meetings with caregivers and patient's family, decision has been made to transition to comfort care at this afternoon. Addendum: patient extubated approx. 1645 and 1703, peacefully; with multiple family members at side Summary of palliative recommendations: -Symptom management (Pain/other)- sedation/pain management per critical care protocols, transitioning to comfort care with end-of-life medications per protocol. -DPOA/Advanced Directives/POLST- transitioning to comfort care. -Family/emotional support- patient and his have excellent support from multiple family members. Palliative medicine will continue to follow and support as able. -Spiritual support- requested snuff grinder visit Additional Medical Diagnoses with primary management by Hospitalist team include : Acute refractory shock with multiorgan dysfunction, present on admission. Active. Ischemic bowel, s/p laparotomy and resection of ischemic small bowel with perforations Acute NSTEMI, present on admission. Active. Acute hypoxemic respiratory failure, present on admission. Active. Acute upper gastrointestinal bleed, present admission. Active. Acute severe blood loss anemia, present admission. Active. Acute oliguric renal failure, present on admission. Active. Severe anion gap metabolic acidosis, present on admission. Active. Transaminitis due to acute liver injury. Prior history of known stroke with right-sided weakness. Problems: End of Life Preferences DO NOT RESUSCITATE/DO NOT INTUBATE/transitioning to comfort care Goals of Care Family now accepts that the patient is dying and wanted to refocus care solely on comfort Disposition Expected to in CCU very rapidly after discontinuation of aggressive support Resuscitation Status Resuscitation Status: DNR/DNI:Do Not Resuscitate/Intubate POLST Updates/Changes Previous POLST?: No . Advanced Care Planning Address: Comfort care Pain: None Total time 95 minutes; >50% face to face with patient and family, providing counselling regarding plans and recommendations, and in care coordination with his medical teams. Of the above total time, 60 minutes counseling for advanced care planning with the patient's family as his care transitions to comfort/end-of-life Palliative Brief Note Date of Service Nov 16, 2016 . Returned to reevaluate the patient on multiple occasions today; also had multiple conferences with numerous family members. Personally reviewed his status with his bedside nurse and with his medical and critical care team providers on multiple occasions throughout the day. Prior to visiting, also reviewed his updated records in the EMR in detail. He remains intubated, mechanically ventilated, sedated. On Nimbex through the day. Vital signs noted- continues on multiple pressors. Urine output nil. Skin cool and mottled, with increasing evidence of ischemic change in both distal lower extremities. Lungs with scattered crackles in dependent rhonchi. Heart sounds rapid and regular. Abdomen was surgical dressings in place. Laboratory and imaging studies reviewed in detail. Lengthy conferences were held with multiple family members during the day. Advised them that the consensus among his providers is that he is irretrievable and that at this point, continued aggressive care is only prolonging his dying. Answered questions that the family had about his status, specific issues regarding his multi-system organ failure, his prognosis and then ultimately discussed the processes involved in withdrawing care and transitioning to purely comfort care. Family requested private time after our initial conversation and I returned a half hour later, reviewing things and answering further questions. The family at that point decided to proceed with compassionate extubation and transition to comfort care at 1630 today. Throughout all of the above, hospital medical claims specialist was present and interpreted for conversations with the family so as to ensure that there was no miscommunication. Kunal Melgar MD Nov 16, 2016 15:59
--- NOTE | 2016-11-16 16:06 | NUR ---
Hemodynamics.. Pt has had attempts at weaning norepi gtt, but has needed to have the gtt increased back up to maintain a MAP >65. R foot remains cold and pulseless. UOP minimal. Did taylor dialysis well. Family conferenced with Palliative this afternoon and decision was made for comfort care with extubation at 1630. Family are gathering at the bedside and coping appropriately.
--- NOTE | 2016-11-16 18:16 | NUR ---
spiritual care: pall care referral brief conference with cotton program technician who is attending to family and offering prayer. Large family grieving.
--- NOTE | 2016-11-16 18:30 | PCM.DC.MEX ---
Discharge Summary Date of Service Nov 16, 2016 Dates of Hospitalization Date of Hospital Admission Nov 12, 2016 at 13:08 Date of Expiration: Nov 16, 2016 Time of Expiration: 17:03 Providers: Admitting Physician: Will Gabriel MD Primary Care Physician: Anthony Attending Physician: Will Gabriel MD Diagnosis at Time of Multiorgan system failure, due to hypovolemic shock, due to acute GI blood loss Additional Diagnosis Acute right heart failure; deep vein thrombosis; oliguric renal failure; shock liver Consultations Intensive care and pulmonary, Dr. Adriana Beasley Infectious disease, Dr. Luba Lantigua Gastroenterology, Dr. Ant Luna Gen. surgery, Dr. Ant Grant Nephrology, Dr. Luba Marin Palliative Care, Dr. Ant Melgar Procedures XRay, CTs & MRIs US DUPLEX DOPPLER UNILATERAL LEG ARTERIES, RIGHT IMPRESSION: No hemodynamically significant peripheral arterial stenosis. Dictated by: Mendez JOVEL Interpreted: Rachel Martinez MD on 11/16/2016 at 9:28 US VEINOUS LEG DUPLEX UNILATERAL, RIGHT IMPRESSION: Nonocclusive right lower extremity deep venous thrombosis. Dictated by: Mendez JOVEL Interpreted: Rachel Martinez MD on 11/16/2016 at 9:26 X-RAY CHEST ONE VIEW IMPRESSION: 1. Persistent bibasilar airspace opacities, left greater than right. 2. Subsegmental atelectasis present within the mid right lung. Dictated by: Mendez JOVEL Interpreted: Liz Talley MD on 11/16/2016 at 10:33 X-RAY CHEST ONE VIEW, PORTABLE Lungs and pleura: No pleural effusions or pneumothorax. Evaluation limited due to patient rotation. There are a few linear medial left retrocardiac opacities likely representing atelectasis. IMPRESSION: 1. Linear left retrocardiac opacities likely represent atelectasis. Dictated by: Raudel [place] M.D. on 11/12/2016 at 11:06 CT CHEST, ABDOMEN AND PELVIS WITHOUT CONTRAST IMPRESSION: 1. No intra-abdominal or intrathoracic hematoma identified. 2. Marked irregular concentric wall thickening of the bladder with heterogeneous bladder contents and partial calcification of the bladder wall. The findings may represent sequelae of cystitis or bladder mass. Recommend correlation with clinical history and cystoscopy if indicated. 3. Small 3-4 mm right upper lobe nodule. A followup study may be performed in 12 months to demonstrate stability if indicated. Dictated by: Raudel [place] M.D. on 11/12/2016 at 12:37 US ABDOMEN, LIMITED IMPRESSION: Limited examination demonstrating no evidence of cholecystitis. Dictated by: Camilla Klein M.D. on 11/13/2016 at 10:39 . ECG 12 Lead EKG per admission note: Sinus tachycardia 106. Normal conduction intervals. [address] depression V2-V6. Q wave III, but not II, aVF. . Cardiac Echo Impression Echocardiogram Interpretation Summary: Normal sinus rhythm. Normal LV size, wall thickness;l there is basal inferior wall akinesis; otherwise normal wall motion. LV is D shaped in both systole and diastole c/w RV pressure overload. Estimated PA systolic pressure is 40 mm Hg assuming RA pressure of 10 mm Hg. RV is severely dilated with severely reduced RV function. No prior study is available for comparison. Reading Physician:05:15 PM . Invasive Procedures OPERATIVE REPORT PATIENT: RAMA NAVARRO : 1950 MR#: [id number] ADMIT: 11/12/2016 JOB ID: [id number] DATE OF SURGERY: 11/14/2016 PREOPERATIVE DIAGNOSIS(ES): 1. Possible bowel ischemia. 2. Intra-abdominal compartment syndrome. POSTOPERATIVE DIAGNOSIS(ES): 1. Small bowel ischemia with perforation. 2. Intra-abdominal compartment syndrome. PROCEDURE: Exploratory laparotomy, small bowel resection, washout and ABThera placement. SURGEON: Kunal Grnat MD. MANUFACTURING AREA MANAGER: CINDY Rodriguez. INDICATION: A 65-year-old man critically ill with concerns regarding intra-abdominal catastrophe, he is brought to the operating room after informed consent. FINDINGS: 1. family readiness support assistant was medically necessary for this procedure. 2. The patient had leakage from his small bowel within his abdominal cavity that had been contained in pockets. The majority of the small bowel was necrotic as described below. 3. The small bowel was resected without creation of ostomy or anastomosis, the abdomen was washed out, and we left the abdomen open. The patient will need to return to the operating room for another surgery within the next 48-96 hours. . Brief History Per admission H&P: The patient is Croatian-speaking and unable to communicate due to intubation. The patient has a history of CVA with residual impairment starting 9 years prior to admission. Family describes 8 months of general decline. Approximately 1 month of poor appetite. Her several days prior to admission nausea following attempts to eat food. He was unable to ambulate to bathroom and back without assistance. On the morning of admission he had an episode of dark brown-black emesis and 2 episodes of bowel incontinence. Family does not describe melena but feels that stools have been dark colored. Patient has prior history of GI bleeding in [place] in 06/2016, but did not undergo EGD at that time. He takes only an occasional aspirin, otherwise no NSAID. He has consumed beer during his adult life but family says he does not drink excessively. He has no history of peptic ulcer disease or liver cirrhosis. The family is not aware of complaints of chest pain, or shortness of breath. He is more confused than usual. Family reports increased leg swelling. Patient required intubation in the emergency department for acute respiratory failure. Over the next several days he developed evidence of acute multisystem organ failure with oliguric renal failure, liver function abnormalities compatible with shock liver, etc. He remained hypotensive and developed progressive leukocytosis, lactic acidosis, etc. as well as progressive abdominal findings and was taken to surgery on the evening of 11/14 with finding of ischemic small bowel process with perforations necessitating resection of most of the small bowel and extensive washout. Postoperatively he has remained critically ill with hypotension, hypoxic respiratory failure requiring progressive increase in FiO2 and PEEP, oliguria and renal failure with associated multiple electrolyte/metabolic abnormalities, etc. Palliative medicine was consulted to assist patient's family and determination of goals of care. Prior to visiting, I reviewed his records in the EMR in detail. I spoke at length with his medical critical care teams, his client solutions specialist, his bedside nurse and others. Met later with the patient's family including , daughter and granddaughter, accompanied by solar development engineer and palliative VIROLOGY TEACHER Ms. Luz. We reviewed his hospital presentation and course of care to this point, discussed in detail his various diagnoses and answered questions that the family members had. Also spoke carefully about his overall prognosis in light of his multisystem organ failure, and also discussed carefully the family's wishes regarding aggressive resuscitative care. Hospital Course 1. Acute refractory shock with multiorgan dysfunction, present on admission. Active. - SIRS criteria met for sepsis include: Hypothermia (temperature 35.8C), tachypnea (respiratory rate 22), tachycardic (pulse 117) , with a leukocytosis of 18.8 and a lactic acid of 20.8 and unresponsive to IV fluid resuscitation. Attributed to mesenteric ischemia due hypovolemic shock to acute GI blood loss - Early goal-directed therapy met including: IV fluid resuscitation and broad- spectrum antibiotic coverage. - Received high-dose norepinephrine and vasopressin and titrate off as tolerated. 2. Acute ischemic small bowel with perforation now status post small bowel resection, present on admission. Active. - The patient was taken to the OR and was found to have abdominal compartment syndrome secondary to ischemic small bowel with perforation now status post small bowel resection. - The patient has 3 ft of small bowel remaining and 6 inches of terminal ileum therefore if he survives the acute illness. - Patient left with open abdomen and ABThera dressing and wound vac in place. Surgery does not plan on further intervention at this point based on clinical status. - Treated with meropenem, levofloxacin and micafungin per ID. 3. Acute hypoxemic respiratory failure, present on admission. Active. - Intubated, chest x-ray generally clear, and AV gradient due to sepsis - Gradually rising oxygen requirement despite adequate ventilation and circulatory support 4. Acute NSTEMI, present on admission. Active. - Likely stress induced secondary to hypovolemia and shock. - EKG on admission showed ST depression in V2-V6 and a Q wave III, but not II, aVF.as above per admission note. - Echocardiogram shows preserved EF of 55-60% with severe RV dilatation and function, as above. 5. Right lower extremity non-obstructive DVT, acuity unknown, present on admission. Active. - Doppler venous revealed right lower extremity non-obstructive DVT. - Pulmonary embolism seems possible, but unable to tolerate CT angiogram 6. Acute upper gastrointestinal bleed, present admission. Active. with acute severe blood loss anemia, present admission. Active. - Presented with severe anemia and hemoglobin of 4.6, hypotensive, and minimally responsive. - Received 4 units PRBC's. Received another 2 units PRBC and 4 units FFP postoperatively after small bowel resection. 7. Acute oliguric renal failure, present on admission. Active. - Likely secondary to ATN from acute GI blood loss and hypotension/hypovolemia. - Hemodialysis was initiated 8. Severe anion gap metabolic acidosis, present on admission. Active. - Initially presented with a with a pH of 6.9 with severe metabolic and lactic acidosis. Initial anion gap was 34 with highly elevated lactic acid at 20.8. - Required extensive infusion of bicarbonate 9. Transaminitis with cholestasis due to acute liver injury. - Likely secondary to shock liver. 10. Prior history of known stroke with right-sided weakness. - Unable to assess neurologic status due to prior impairment and need for sedation on ventilator 11. Palliative care service counseled family who elected for compassionate extubation shortly prior to his . Exam Test 11/12/16 08:23 11/13/16 02:30 11/13/16 10:05 11/13/16 10:19 Hold Zapien Top Tube Received (Received) Troponin T 3.00ug/L (0.0-0.011) Urine Legionella pneumophilia Ag Negative (Negative) Urine Color Radha (YELLOW) Urine Appearance Cloudy (CLEAR,HAZY) Urine pH 5.0 (5.0-8.0) Urine Specific Grady 1.024 (1.003-1.035) Urine Protein 30mg/dL (NEG,TRACE) Urine Glucose (UA) Negativemg/dL (NEGATIVE) Urine Ketones 40mg/dL (NEGATIVE) Urine Occult Blood Large (NEGATIVE) Urine Nitrite Negative (NEGATIVE) Urine Bilirubin Small (NEGATIVE) Urine Ictotest Positive (Negative) Urine Urobilinogen Normalmg/dL (NORMAL) Urine Leukocyte Esterase Trace (NEGATIVE) Urine RBC >50/hpf (0-2) Urine WBC 6-10/hpf (0-5) Urine Epithelial Cells Few/hpf (NONE-MOD) Urine Crystals Amorphous urates (NONE Urine Bacteria None/hpf (NONE-FEW) Urine Hyaline Casts None/lpf (NONE) Urine Granular Casts Occasional (NONE SEEN) Urine Waxy Casts Occassional (NONE SEEN) Urine Red Blood Cell Casts None seen (NONE SEEN) Urine White Blood Cell Casts None seen (NONE SEEN) Urine Mucus None seen (None Seen) Urine Trichomonas None seen (NONE SEEN) Urine Yeast None (NONE SEEN) Urinalysis Comment None Urine Culture Reflexed Indicated Test 11/13/16 16:30 11/14/16 03:30 11/14/16 23:25 11/15/16 05:30 Urine Random Creatinine 141mg/dL (22-328) Urine Random Sodium 20mEq/L Hold Urine Received (Received) Metamyelocytes % 1% (0-0) Total Creatine Kinase 472U/L (21-232) Procalcitonin 80.20ng/mL (0.00-0.08) Myelocytes % 2% (0-0) Triglycerides Level 86mg/dL (0-149) Test 11/15/16 08:45 11/15/16 16:20 11/15/16 19:30 11/16/16 06:00 Hepatitis B Surface Antigen Negative (Negative) Hepatitis B Surface Antibody Reactive (.) Hepatitis B Core Total Antibody Negative (Negative) Hepatitis C Antibody <0.1s/co ratio (0.0-0.9) Hematology Comments Band Neutrophils % 6% (1-5) Sodium Level 136mEq/L (134-144) Potassium Level 5.1mEq/L (3.5-5.2) Chloride Level 93mEq/L (97-108) Carbon Dioxide Level 14mmol/L (18-29) Blood Urea Nitrogen 44mg/dL (8-27) Creatinine 3.76mg/dL (0.76-1.27) Estimat Glomerular Filtration Rate 17mL/min (>59) Glucose Level 239mg/dL (60-99) Lactic Acid Level 12.2mmol/L (0.4-2.0) Calcium Level 6.0mg/dL (8.5-10.1) Ionized Calcium (Calculated) 3.43mg/dL (3.5-5.2) Phosphorus Level 8.4mg/dL (2.5-4.9) Magnesium Level 1.6mg/dL (1.6-2.6) Total Bilirubin 13.9mg/dL (0.0-1.2) Aspartate Amino Transf (AST/SGOT) 2813U/L (0-50) Alanine Aminotransferase (ALT/SGPT) 1415U/L (0-44) Alkaline Phosphatase 116U/L (25-160) Total Protein 4.1g/dL (6.4-8.4) Albumin 2.7g/dL (3.4-5.0) Prealbumin 6mg/dL (20-40) Test 11/16/16 09:45 White Blood Count 21.8th/mm3 (3.8-10.1) Corrected White Blood Count 19.5th/mm3 (3.8-10.1) Red Blood Count 3.98mil/mm3 (4.40-5.80) Hemoglobin 9.2g/dL (13.8-17.2) Hematocrit 30.2% (41.0-50.0) Mean Corpuscular Volume 75.9fL (81-100) Mean Corpuscular Hemoglobin 23.1pg (27.0-35.0) Mean Corpuscular Hemoglobin Concent 30.5% (32.0-37.0) Red Cell Distribution Width 28.2% (12.3-15.4) Platelet Count 42bil/L (150-400) Neutrophils (%) (Auto) 78.0% (40-74) Lymphocytes (%) (Auto) 15.7% (14-46) Monocytes (%) (Auto) 4.2% (4-12) Eosinophils (%) (Auto) 0.1% (0-5) Basophils (%) (Auto) 0.3% (0-3) Nucleated Red Blood Cells 12/100 WBC (0-24) Prothrombin Time 38.8sec (8.1-12.5) Prothromb Time International Ratio 3.53ratio Activated Partial Thromboplast Time 64.8sec (22.8-33.0) Fibrinogen 127mg/dL (157-380) D-Dimer 22.41mg/L FEU (<0.50) Microbiology Results Sputum culture grew light normal kathy. MRSA screen negative. Respiratory viral PCR negative. Streptococcus pneumoniae and legionella urine antigens negative. Blood culture 2 has no growth after 2 days. . Time spent 60 minutes Will Gabriel MD Nov 16, 2016 18:30
--- NOTE | 2016-11-16 18:38 | NUR ---
Time of .. Family gathered at bedside and pt was extubated at 1640. Started on Ativan gtt in addition to Fentanyl and Precedex. Pt had nimbex dc'd at 1545 in preparation for extubation. Pt passed at 1703 with family in attendance. Dr Melgar at the bedside and pronounced the pt. Family has chosen [facility] home for preparation of sending his body back to [place]. personal lines sales rep for family is Luanne Crowe, daughter in law. [phone].
[2016-11-17] MEDS ORDERED: Lactated Ringer's 1,000 ML IV SCH (05:00)
--- NOTE | 2016-11-17 08:49 | PATH ---
SURGICAL PATHOLOGY Attending Physician:Kunal Grant MD CASE STATUS: Signed Out PATIENT NAME: RAMA NAVARRO PID: [id number] : 1950 DATE COLLECTED:11/14/2016 00:00 SPECIMEN: Small Intestine, Non-Tumor Resection CLINICAL HISTORY: INTRA ABDOMINAL BOWEL ISCHEMIA 1). SMALL BOWEL FINAL DIAGNOSIS: Small Intesting (135 cm Resected Length): Extensive ischemic necrosis with focal perforation. No evidence of malignancy. Surgical margins viable. ICD10 K55.0 GROSS DESCRIPTION: The specimen is received in formalin, labeled with the patient's name and "small bowel". It consists of an approximately 135 cm in length segment of small bowel with a diameter ranging from 2.6 to 3.7 cm, containing a moderate amount of pericolonic fat. One resection margin is open and one resection margin is stapled, and both appear viable. Approximately 110 cm of the mid portion of the specimen appears dusky and focally hemorrhagic with focal adhesions and fibrinous exudate. Multiple segments of the bowel wall appear softened and thin. There are three defects in the bowel wall near the open end measuring 0.7, 0.8 and 1.6 cm. Opening the specimen reveals a wall thickness ranging from 0.1-0.4 cm. The mucosa is predominantly soft, friable, and hemorrhagic. No masses are identified. The mucosa near the resection margins appears trejo-brown and well folded. There is also a separate segment of small bowel measuring 8.5 cm in length by 2.7 cm in diameter, which is opened to reveal normal appearing, well folded, trejo-brown mucosa. Local Coordinator sections are submitted as follows: A-open resection margin; B-stapled resection margin; B-[id number]-[id number] bowel wall with defects; D-hemorrhagic mucosa; E-softened mucosa; F-normal appearing mucosa; G-mucosa from separate smaller portion of bowel. ([id number]) ICD-9 CODES: CPT CODES: 1: 52572 Electronically Signed Out Luis James MD [facility] Pathology [facility] [address], [place] [address] Technical component performed at [facility], [address], [place], [address]
--- NOTE | 2016-11-17 13:07 | DRSVH ---
PROCEDURE: X-RAY CHEST ONE VIEW ([id number]) INDICATIONS: vent TECHNIQUE: One view of the chest was acquired. COMPARISON: None. FINDINGS: Surgical changes and devices: Stable position the ETT, nasogastric tube and left PICC. Lungs and pleura: Lung volumes are low and bibasilar airspace opacities redemonstrated, left greater than right. No pneumothorax. Mediastinum: Mediastinal contours appear normal. Heart size is normal. Bones and chest wall: No suspicious bony lesions. Overlying soft tissues appear unremarkable. IMPRESSION: Bibasilar atelectasis versus aspiration or pneumonia similar to prior exam. Dictated by: Mendez Meléndez [facility] Interpreted: Liz Talley MD on 11/15/2016 at 10:26 Transcribed by: ROSAS on 11/17/2016 at 13:06 Approved by: Liz Talley M.D. on 11/17/2016 at 19:53
== END 2016-11-16 17:03 | disposition expired | DRG 853 ==
LOC: SED 07:27 → OFED 09:11 → UNDOADMIN 09:11 → CCU 13:08
PROVIDERS: ADMIT Internal Medicine; ATTEND Internal Medicine
PROC: 03HY32Z Insertion of Monitoring Device into Upper Artery, Percutaneous Approach (ICD-10-PCS; 2016-11-12)
PROC: 30233N1 Transfusion of Nonautologous Red Blood Cells into Peripheral Vein, Percutaneous Approach (ICD-10-PCS; 2016-11-12)
PROC: 0BH17EZ Insertion of Endotracheal Airway into Trachea, Via Natural or Artificial Opening (ICD-10-PCS; 2016-11-12)
PROC: 5A1955Z Respiratory Ventilation, Greater than 96 Consecutive Hours (ICD-10-PCS; 2016-11-12)
PROC: 4A033R1 Measurement of Arterial Saturation, Peripheral, Percutaneous Approach (ICD-10-PCS; 2016-11-12)
PROC: 30233K1 Transfusion of Nonautologous Frozen Plasma into Peripheral Vein, Percutaneous Approach (ICD-10-PCS; 2016-11-14)
PROC: 0DB80ZZ Excision of Small Intestine, Open Approach (ICD-10-PCS; principal; 2016-11-15)
PROC: 30233N1 Transfusion of Nonautologous Red Blood Cells into Peripheral Vein, Percutaneous Approach (ICD-10-PCS; 2016-11-15)
PROC: 30233K1 Transfusion of Nonautologous Frozen Plasma into Peripheral Vein, Percutaneous Approach (ICD-10-PCS; 2016-11-15)
DX: A41.9 Sepsis, unspecified organism (principal); J96.01 Acute respiratory failure with hypoxia; N17.0 Acute kidney failure with tubular necrosis; I21.4 Non-ST elevation (NSTEMI) myocardial infarction; R65.21 Severe sepsis with septic shock; J18.9 Pneumonia, unspecified organism; K55.029 Acute infarction of small intestine, extent unspecified; K63.1 Perforation of intestine (nontraumatic); K72.00 Acute and subacute hepatic failure without coma; K92.0 Hematemesis; I69.351 Hemiplegia and hemiparesis following cerebral infarction affecting right dominant side; E87.2 Acidosis; D62 Acute posthemorrhagic anemia; M79.A3 Nontraumatic compartment syndrome of abdomen; K55.9 Vascular disorder of intestine, unspecified; I82.401 Acute embolism and thrombosis of unspecified deep veins of right lower extremity; E78.5 Hyperlipidemia, unspecified; I69.320 Aphasia following cerebral infarction; Z51.5 Encounter for palliative care